=== PATIENT | female | born 1945 | race Caucasian/White ===

== ENCOUNTER 2019-06-26 13:05 | Emergency (ER) | payer MEDICARE, SELFPAY ==
--- NOTE | ~2019-06-26 | XR_ITS ---
XR lumbar spine 2-3V DATE: 06/26/2019 14:04 INDICATION: Fall. Left lower back pain. TECHNIQUE: AP, lateral, coned lateral lumbosacral views COMPARISON: None FINDINGS: There is an acute fracture of the superior aspect of L2 with slight offset of the upper ant erior cortex of the vertebral body. No other fracture or any bone destruction is evident. The lumbar and included lower thoracic pedicles are intact. There is degenerative change at the apophyseal joints of the lower lumbar and lumbosacral area with a ssociated grade 1 anterolisthesis at L4-5 There is degenerative spurring of the lower thoracic and to a lesser extent lumbar spine. The sacroiliac joints appear normal. IMPRESSION: Acute minimally displaced L2 vertebral body fracture Degenerative changes Reviewed, dictated and finalized at location A.
--- NOTE | ~2019-06-26 | XR_ITS ---
XR wrist LT min 3V DATE: 06/26/2019 14:03 INDICATION: Fall. Generalized left wrist pain TECHNIQUE: 4 views COMPARISON: None FINDINGS: There is osteoarthritis at the triscaphe and first carpometacarpal and metacarpophalangeal joints. No fracture or dislocation, periosteal reaction or bone destruction. IMPRESSION: Polyarticular osteoarthritis Reviewed, dictated and finalized at location A.
[2019-06-26 13:12] VITALS: BP 148/68; PULSE 98; RESP 18; TEMP 37.3; O2SAT 98
--- NOTE | 2019-06-26 13:37 | ED.GENADULT ---
HPI - General Adult General Chief complaint: Fall Stated complaint: Back Pain,Wrist Pain Time Seen by Provider: 06/26/19 13:30 Source: patient and RN notes reviewed Mode of arrival: ambulatory Limitations: no limitations History of Present Illness HPI narrative: 74-year-old female presents with complaints of lower back pain and left wrist pain after falling today at approximately 12:30 pm. No treatment. Star says she was stepping up on a curb going [employer] when she missed the curb and fell forward, stuck out her left hand to break her fall. Causing injury to LT wrist. Denies radiating pain, numbness, or tingling. No radiating pain. No swelling. No immobility, suspected foreign body, or abuse. Exacerbating factors consist of movement of LT wrist. Relieving factor is rest. Dominant hand is the RIGHT HAND. While attempting to get up she fell backwards hitting back of head and back. Denies loss of consciousness. Denies head swelling or bleeding. Denies blood thinners. Denies syncope, altered vision, altered speech, confusion, or seizure activity. No upper or lower extremity pain or weakness. Exacerbating factors consist of standing, movement, and bending of back. Denies nausea, vomiting, or abdominal pain. Denies chest pain or dyspnea. Denies problems with urinating or having a bowel movement. No flank pain or hematuria or dysuria. Denies fever or chills. Remains active. Some parts of this dictation were generated by voice recognition software and may contain typographical and/or grammatical inaccuracies. Related Data Home Medications Medication Instructions Recorded Confirmed hydrochlorothiazide 25 mg tablet 25 mg PO DAILY 05/18/19 losartan 25 mg tablet 25 mg PO DAILY 05/18/19 metformin 500 mg tablet,extended 2,000 mg PO QPM tablet 05/18/19 release 24 hr Allergies Allergy/AdvReac Type Severity Reaction Status Date / Time No Known Allergies Allergy Uncoded 02/04/19 17:33 Review of Systems Review of Systems: Narrative: CONSTITUTIONAL: Denies fever, chills, sweats. EYES: Denies visual changes, redness, discharge. ENT: Denies rhinorrhea, congestion, sore throat, otalgia. CARDIOVASCULAR: Denies chest pain, palpitations, edema. RESPIRATORY: Denies dyspnea, wheezing, cough. GASTROINTESTINAL: Denies abdominal pain, nausea, vomiting, diarrhea. GENITOURINARY: Denies dysuria, hematuria, abnormal discharge. SKIN: Denies rash or itching. MUSCULOSKELETAL: Complains of diffused lower back pain, LT wrist pain. Denies myalgia. NEUROLOGIC: Denies numbness or focal weakness. Complains of hitting head, headache. PSYCHIATRIC: Denies anxiety or depression. All systems reviewed & are unremarkable except as noted in HPI and below. [facility] Past Medical History Medical History (Updated 06/26/19 @ 17:55 by ONEAL Ramesh) Hyperlipidemia Hypertension Hypothyroidism Localized osteoarthritis of knees, bilateral Major depression Type 2 diabetes mellitus Surgical History Surgical History (Updated 06/26/19 @ 14:02 by ONEAL Ramesh) No significant past surgical history Family History Family History Other Diabetes mellitus Family history of polycystic kidney disease Hypertension Social History Social History (Updated 06/26/19 @ 14:03 by ONEAL Ramesh) Smoking status: Never smoker Second hand tobacco smoke exposure: No Alcohol intake: current Substance use: never Living arrangements: alone Occupation/Education: occupation Gender identity (if verbalized by the patient): Female Comments At time of signature, agree with nurse past medical, surgical, social, and family history. There is no relevant family history pertinent to the presenting complaint. Exam Narrative: Exam Narrative: GENERAL: This is a well-nourished, well-developed patient, in no apparent distress. Talks in full sentences without defi
[2019-06-26] MEDS: ACETAMINOPHEN 500 MG TABLET 1000 MG PO (13:45)
== END 2019-06-26 15:00 | disposition home or self-care (01) ==
PROVIDERS: Emergency Provider Nurse Practitioner Family; PCP Family Medicine
DX: S32.029A Unspecified fracture of second lumbar vertebra, initial encounter for closed fracture (principal); M25.532 Pain in left wrist; W19.XXXA Unspecified fall, initial encounter; E78.5 Hyperlipidemia, unspecified; I10 Essential (primary) hypertension; E03.9 Hypothyroidism, unspecified; M17.0 Bilateral primary osteoarthritis of knee; F32.9 Major depressive disorder, single episode, unspecified; E11.9 Type 2 diabetes mellitus without complications
CPT/HCPCS: 72100; 73110; 99214; A9270; G0463

== ENCOUNTER 2019-09-05 13:33 | Emergency (ER) | payer MEDICARE, SELFPAY ==
--- NOTE | ~2019-09-05 | XR_ITS ---
EXAMINATION: XR ankle LT min 3V, XR foot LT min 3V EXAM DATE: 09/05/2019 15:08 INDICATION: Initial encounter following injury, with pain of the left ankle and foot. TECHNIQUE: Left foot dorsoplantar, lateral and oblique projections obtained and reviewed. Left ankle frontal, lateral and oblique projections obtained and reviewed. There is no prior study for compari son. FINDINGS: There is acute oblique closed posttraumatic fracture of the left fifth metatarsal shaft. T here is mild comminution and about 5 mm of displacement. There is overlying soft tissue swelling. No other acute findings. The left ankle mortise appears intact. Large calcaneal spurs. There is modera te scattered foot primary osteoarthritis. IMPRESSION: 1. Acute mildly displaced and comminuted left fifth metatarsal shaft fracture. Reviewed, dictated and finalized at location A. IMPRESSION: 1. Acute mildly displaced and comminuted left fifth metatarsal shaft fracture.
--- NOTE | ~2019-09-05 | XR_ITS ---
EXAMINATION: XR femur LT min 2V EXAM DATE: 09/05/2019 15:08 INDICATION: Initial encounter following injury, with pain of the left femur. TECHNIQUE: Left femur frontal and lateral projections of the proximal aspect, frontal and lateral pro jections of the lower aspect for review. There is no prior study for comparison. FINDINGS: There are no acute left femur fractures or dislocations identified. There is no subcutaneo us gas. There is some swelling anterolateral aspect of leg, within subcutaneous fat. There are no r adiopaque foreign bodies. There is severe left knee, moderate hip primary osteoarthritis. No joint effusion. IMPRESSION: 1. Left femur exam without acute osseous findings. 2. Advanced left knee osteoarthritis. 3. Soft tissue swelling Reviewed, dictated and finalized at location A.
[2019-09-05 13:52] VITALS: BP 118/69; PULSE 101; RESP 16; TEMP 37.6; O2SAT 98
--- NOTE | 2019-09-05 14:19 | ED.FALL ---
HPI - Fall General Chief Complaint: Fall Stated Complaint: fall Time Seen by Provider: 09/05/19 14:19 Source: patient Mode of arrival: ambulatory Limitations: no limitations History of Present Illness HPI Narrative: Cristi Norwood is a 74 yo female with a PMH of HTN, anxiety, depression, high cholesterol, hypothyroid, diabetes, who comes to express care after fall down stairs last night; complains today along the left side particular lower extremity Patient had fall on June 25 resulted in a lumbar fracture and is in a hard shell back brace Related Data Home Medications Medication Instructions Recorded Confirmed hydrochlorothiazide 25 mg tablet 25 mg PO DAILY 05/18/19 metformin 500 mg tablet,extended 2,000 mg PO QPM tablet 05/18/19 release 24 hr Allergies Allergy/AdvReac Type Severity Reaction Status Date / Time No Known Allergies Allergy Unknown Unknown Uncoded 09/03/19 15:34 Review of Systems Review of Systems: Narrative: CONSTITUTIONAL: Denies fever, chills, sweats. EYES: Denies visual changes, redness, discharge. ENT: Denies rhinorrhea, congestion, sore throat, otalgia. CARDIOVASCULAR: Denies chest pain, palpitations, edema. RESPIRATORY: Denies dyspnea, wheezing, cough GASTROINTESTINAL: Denies abdominal pain, nausea, vomiting, diarrhea. GENITOURINARY: Denies dysuria, hematuria, abnormal discharge SKIN: Denies rash or itching. Ecchymosis of left foot bright crowley left lateral leg from mid lower leg up to hip NEUROLOGIC: Denies numbness, or focal weakness. PSYCHIATRIC: Denies anxiety or depression. [facility] Past Medical History Medical History Hyperlipidemia Hypertension Hypothyroidism Localized osteoarthritis of knees, bilateral Major depression Type 2 diabetes mellitus Surgical History Surgical History No significant past surgical history Family History Family History Other Diabetes mellitus Family history of polycystic kidney disease Hypertension Social History Social History Smoking status: Never smoker Second hand tobacco smoke exposure: No Alcohol intake: current Substance use: never Gender identity (if verbalized by the patient): Female Comments At time of signature, I agree with nursing past medical, surgical, social and family history. There is no relevant family history pertinent to the presenting complaint. Exam Narrative: Exam Narrative: GENERAL: This is a well-nourished, well-developed patient, in mild distress. HEAD: normocephalic, atraumatic. EYES: Sclera clear/white. Vision is grossly intact. EARS: External ears normal, Hearing grossly intact. NOSE: External nose normal without nasal discharge, nares without redness, no rhinorrhea. THROAT: Mucous membranes moist, posterior pharynx NECK: Neck supple, non-tender CARDIOVASCULAR: Regular rate and rhythm without murmurs, gallops, or rubs. RESPIRATORY: Clear to auscultation. Breath sounds equal bilaterally. No wheezes, rales, or rhonchi. GASTROINTESTINAL: Abdomen soft, non-tender, SKIN: warm, intact with no suspicious lesions or rash, good texture and turgor. Ecchymosis of left great toe left lower leg left knee left thigh on lateral side NEURO: awake, alert, and oriented to person, place and time. There were no obvious focal neurologic abnormalities. Steady gait equal key holder bilateral hands, right leg weaker than left EXTREMITIES: Normal range of motion. BACK: Nontender without deformity Course Course Emergency Course: Multiple x-rays including left ankle left foot left knee and left hip- all negative except for L fpoot Xray - 5th metatarsal comminuted fracture- blayne taping and placed in post op shoe- follow up with scale assembly set up worker Vital Signs Vital signs: Vital Signs Temperature 99.6 F 09/05/19
== END 2019-09-05 15:51 | disposition home or self-care (01) ==
PROVIDERS: Emergency Provider Nurse Practitioner; PCP Family Medicine
DX: S92.352A Displaced fracture of fifth metatarsal bone, left foot, initial encounter for closed fracture (principal); I10 Essential (primary) hypertension; E03.9 Hypothyroidism, unspecified; E11.9 Type 2 diabetes mellitus without complications; E78.5 Hyperlipidemia, unspecified; M17.0 Bilateral primary osteoarthritis of knee; Z79.84 Long term (current) use of oral hypoglycemic drugs; W10.9XXA Fall (on) (from) unspecified stairs and steps, initial encounter
CPT/HCPCS: 73552; 73610; 73630; 99214; G0463

== ENCOUNTER 2020-02-22 15:58 | Outpatient (CLI) | payer MEDICARE, SELFPAY ==
[2020-02-23 07:18] LABS: Anion Gap 16 mmol/L (8-16); Blood Urea Nitrogen 16 mg/dL (7-17); Calcium 10.4 mg/dL (8.4-10.2); Carbon Dioxide 25 mmol/L (22-30); Chloride 99 mmol/L (98-107); Estimated Glomerular Filt Rate 44; Glucose 148 mg/dL (65-105); Potassium 3.9 mmol/L (3.4-5.0); Sodium 140 mmol/L (137-145)
[2020-02-23 07:29] LABS: Hemoglobin A1C 5.5 % (<5.7)
== END 2020-02-22 15:59 | disposition home or self-care (01) ==
LOC: ANHLAB 15:59
PROVIDERS: PCP Family Medicine; Visit Provider Family Medicine
DX: E11.65 Type 2 diabetes mellitus with hyperglycemia (principal); E87.1 Hypo-osmolality and hyponatremia; I10 Essential (primary) hypertension
CPT/HCPCS: 36415; 80048; 83036

== ENCOUNTER 2020-02-23 16:34 | Outpatient (CLI) | payer MEDICARE, SELFPAY ==
[2020-02-23 17:19] LABS: Add Urine Microscopic? YES; Appearance Urine Clear (Clear); Bilirubin Urine Negative (Negative); Blood Urine Negative (Negative); Color Urine Yellow (Yellow); Glucose Urine UA Negative (Negative); Ketones Urine Negative (Negative); Leukocyte Esterase Ur 1+ LEU/UL (NEGATIVE); Mucus Urine Rare /lpf; Nitrate Urine Negative (Negative); Protein Urine Negative (Negative); RBC Urine 0-2 /hpf (0-2); Specific Grav Ur 1.027 (1.001-1.035); Squamous Epithelial Cell Urine Few /hpf (Few); Urobilinogen Urine Negative mg/dL (<2.0)
== END 2020-02-23 16:35 | disposition home or self-care (01) ==
LOC: ANHLAB 16:35
PROVIDERS: PCP Family Medicine; Visit Provider Family Medicine
DX: R35.0 Frequency of micturition (principal)
CPT/HCPCS: 81001; 87077; 87086; 87088

== ENCOUNTER 2020-03-07 11:38 | Outpatient (CLI) | payer MEDICARE, SELFPAY ==
--- NOTE | ~2020-03-07 | CT_ITS ---
EXAMINATION: CT abdomen pelvis wo con EXAM DATE: 03/07/2020 11:58 INDICATION: Left flank pain. TECHNIQUE: Spiral CT of the abdomen and pelvis was performed without contrast. Axial, coronal and sag ittal images were reviewed. The dose-length product (DLP) for this examination was 1008.70 mGy-cm. The exposure was tailored according to patient size (auto mA exposure control), and iterative reconst ruction (ASIR) was used as additional dose reduction technique. There is no prior study for comparis on. FINDINGS: There is no nephrolithiasis or hydronephrosis. The uterus is unremarkable. The bladder is unremarkable. The liver, spleen, adrenal glands and pancreas are unremarkable. Gallbladder is un remarkable. No biliary obstruction. There is no retroperitoneal or pelvic lymphadenopathy. There is mild scattered arteriosclerotic disease. The appendix is normal. There is small sliding gastroesophageal hiatal hernia. There is moderate col onic diverticulosis. There is no adjacent inflammatory change to suggest diverticulitis. No free in traperitoneal gas. The heart is normal in size. There are no pericardial or pleural effusions. Th e lung bases are unremarkable. Mild to moderate anterior wedging of the L2 vertebral body with scler osis, indicating this is subacute or chronic. IMPRESSION: 1. No nephrolithiasis, hydronephrosis or acute intra-abdominal findings. 2. Colonic diverticulosis. 3. Small hiatal hernia. Reviewed, dictated and finalized at location B. NURSE
== END 2020-03-07 11:39 | disposition home or self-care (01) ==
PROVIDERS: PCP Family Medicine; Visit Provider Physician Assistant
DX: R10.9 Unspecified abdominal pain (principal); K44.9 Diaphragmatic hernia without obstruction or gangrene; K57.30 Diverticulosis of large intestine without perforation or abscess without bleeding
CPT/HCPCS: 74176

== ENCOUNTER 2020-03-11 14:58 | Outpatient (CLI) | payer MEDICARE, SELFPAY ==
[2020-03-11 15:55] LABS: Anion Gap 9 mmol/L (8-16); Blood Urea Nitrogen 16 mg/dL (7-17); Calcium 9.3 mg/dL (8.4-10.2); Carbon Dioxide 28 mmol/L (22-30); Chloride 104 mmol/L (98-107); Estimated Glomerular Filt Rate > 60; Glucose 116 mg/dL (65-105); Potassium 4.2 mmol/L (3.4-5.0); Sodium 141 mmol/L (137-145)
[2020-03-11 16:17] LABS: Creatinine Urine 138.3 mg/dL
[2020-03-11 16:19] LABS: MALB Creatinine Ratio 5.6 mg/g (0-30); Microalbumin Urine Random 7.8 mg/L (0-16.7)
[2020-03-11 17:22] LABS: T4 Thyroxine 9.54 ug/dL (5.53-11.0)
== END 2020-03-11 14:59 | disposition home or self-care (01) ==
LOC: ANHLAB 14:59
PROVIDERS: PCP Family Medicine; Visit Provider Physician Assistant
DX: E03.9 Hypothyroidism, unspecified (principal); E11.65 Type 2 diabetes mellitus with hyperglycemia; I10 Essential (primary) hypertension
CPT/HCPCS: 36415; 80048; 82043; 84436; 84443

== ENCOUNTER 2020-12-06 09:15 | Outpatient (RCR) | payer MEDICARE, SELFPAY ==
[2020-11-22 09:46] VITALS: BMI 45.2
[2020-11-22 09:48] VITALS: BMI 45.2
== END 2021-02-08 11:55 | disposition home or self-care (01) ==
LOC: ANHDMC 09:15
PROVIDERS: PCP Physician Assistant; Visit Provider Physician Assistant
DX: E11.65 Type 2 diabetes mellitus with hyperglycemia (principal); Z71.3 Dietary counseling and surveillance; Z71.89 Other specified counseling
CPT/HCPCS: 97802; G0108

== ENCOUNTER 2021-04-04 10:31 | Outpatient (RCR) | payer MEDICARE, SELFPAY | END 2021-04-04 12:23 | disposition home or self-care (01) | LOC: ANHDMC 10:31 | PROVIDERS: PCP Family Medicine; Visit Provider Physician Assistant | DX: E11.65 Type 2 diabetes mellitus with hyperglycemia (principal); Z71.89 Other specified counseling | CPT/HCPCS: G0108 ==

== ENCOUNTER 2021-06-19 14:11 | Outpatient (CLI) | payer MEDICARE, SELFPAY ==
[2021-06-19 15:03] LABS: Alanine Aminotransferase 19 U/L (4-35); Albumin Level 4.7 g/dL (3.5-5.1); Alkaline Phosphatase 72 U/L (38-126); Anion Gap 9 mmol/L (8-16); Aspartate Amino Transferase 23 U/L (14-36); Bilirubin,Total 0.8 mg/dL (0.2-1.3); Blood Urea Nitrogen 19 mg/dL (7-17); Calcium 9.4 mg/dL (8.4-10.2); Carbon Dioxide 26 mmol/L (22-30); Chloride 100 mmol/L (98-107); Estimated Glomerular Filt Rate > 60; Glucose 149 mg/dL (65-110); Potassium 4.3 mmol/L (3.4-5.0); Sodium 135 mmol/L (137-145)
[2021-06-19 15:10] LABS: Hemoglobin A1C 6.1 % (<5.7)
== END 2021-06-19 14:12 | disposition home or self-care (01) ==
LOC: ANHLAB 14:13
PROVIDERS: PCP Family Medicine; Visit Provider Family Medicine
DX: E11.65 Type 2 diabetes mellitus with hyperglycemia (principal)
CPT/HCPCS: 36415; 80053; 83036

== ENCOUNTER 2021-06-27 20:17 | Emergency (ER) | payer MEDICARE, SELFPAY ==
--- NOTE | ~2021-06-27 | CT_ITS ---
EXAMINATION: CT cervical spine wo con DATE: 06/27/2021 23:00 INDICATION: Fall. Head injury. TECHNIQUE: Computed tomography (CT) of the cervical spine was performed without intravenous contrast. Automated exposure control and iterative reconstruction technique were employed. Exam dose: 405.32 mGy-cm total exam DLP. COMPARISON: None FINDINGS: C1 and C2 are normally aligned and the odontoid process is intact. No fracture or dislocation or locked facet or prevertebral soft tissue swelling. There is anterior spurring throughout the cervical spine. Cervical interspaces are relatively preserv ed. There is degenerative change of prominent degree at the apophyseal joints.. IMPRESSION: Degenerative changes; no fracture or dislocation Reviewed, dictated and finalized at Location A. Reviewed, dictated and finalized at location A.
--- NOTE | ~2021-06-27 | CT_ITS ---
EXAMINATION: CT brain wo con DATE: 06/27/2021 23:00 INDICATION: Fall, head injury, forehead laceration TECHNIQUE: Computed tomography (CT) of the head was performed without intravenous contrast. The mA wa s adjusted according to patient size. Iterative reconstruction technique was employed. Exam dose: 60 5.33 mGy-cm total exam DLP. COMPARISON: None FINDINGS: Bilateral carotid siphon internal carotid artery calcifications in addition to some vertebr al basilar artery calcification. No intracranial mass lesion or hemorrhage or cerebrovascular accident. No midline shift or mass effec t. No subdural or epidural hematoma. No orbital mass lesion. There are mastoid air cells are normally developed and aerated. Included paranasal sinuses are unrema rkable. Bilateral hyperostosis frontalis interna, not likely of clinical significance. No skull fracture or b one destruction. IMPRESSION: No skull fracture or acute intracranial abnormality Reviewed, dictated and finalized at Location A. Reviewed, dictated and finalized at location A.
[2021-06-27 20:22] VITALS: BP 118/59; PULSE 103; RESP 18; TEMP 36.9; O2SAT 100
[2021-06-27 21:17] VITALS: BP 158/68; PULSE 87; RESP 18; O2SAT 98
--- NOTE | 2021-06-27 21:23 | PC.NURSE ---
denies any loc
[2021-06-27 22:09] VITALS: BP 150/69; PULSE 90; RESP 18; O2SAT 99
--- NOTE | 2021-06-27 22:59 | ED.FALL ---
HPI - Fall General Chief Complaint: Fall <Diana Regalado PA-C - Last Filed: 06/28/21 04:24> Stated Complaint: fall - dizzy <PILAR Velez Last Filed: 06/28/21 04:24> Time Seen by Provider: 06/27/21 21:56 <PILAR Velez Last Filed: 06/28/21 04:24> Source: patient <PILAR Velez Last Filed: 06/28/21 04:24> Mode of arrival: ambulatory <PILAR Velez Last Filed: 06/28/21 04:24> Limitations: no limitations <PILAR Velez Last Filed: 06/28/21 04:24> History of Present Illness HPI Narrative: Patient is a 76-year-old female, with Hx of DM, who presents to the ED status post fall with head injury. 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 She did not lose consciousness. The fall was witnessed by the delivery associate. Patient states she remembers the entire incident. She denied any chest pain, shortness of breath, back pain, headache, focal weakness, vision changes prior to the fall. She reports she has felt lightheaded like this before when she has not eaten. She denies any previous syncopal episodes. She did sustain a small laceration to her middle forehead between her eyes and several abrasions to her face from the fall. She is not on any blood thinners. No epistaxis, dizziness, lightheadedness, headache, nausea, vomiting, or other pain currently in ED bed. <PILAR Velez Last Filed: 06/28/21 04:24> Related Data Home Medications: Home Medications Medication Instructions Recorded Confirmed diphenhydramine 25 250 ml PO DAILY 03/01/20 06/20/21 mg-acetaminophen 500 mg/15 mL oral solution multivitamin 1 tablet PO DAILY 03/01/20 06/20/21 vitamin B complex 1 tablet PO DAILY 03/01/20 06/20/21 magnesium 30 mg tablet 30 mg PO DAILY 08/30/20 06/20/21 blood-glucose meter 12/06/20 06/20/21 metformin 500 mg tablet,extended 500 mg PO TID tablet 03/17/21 06/20/21 release 24 hr <Diana Regalado PA-C - Last Filed: 06/28/21 04:24> Allergies/Adverse Reactions: Allergies Allergy/AdvReac Type Severity Reaction Status Date / Time lisinopril AdvReac Intermediate Cough Verified 06/27/21 20:26 <Diana Regalado PA-C - Last Filed: 06/28/21 04:24> Review of Systems Review of Systems: CONSTITUTIONAL: Denies fever, chills, or sweats. EYES: Denies visual changes. ENT: Denies epistaxis. CARDIOVASCULAR: Denies chest pain, palpitations, or edema. RESPIRATORY: Denies cough or dyspnea. GASTROINTESTINAL: Denies abdominal pain, nausea, vomiting, or diarrhea. GENITOURINARY: Denies dysuria or hematuria. SKIN: Reports laceration to middle forehead and small abrasions to forehead, nose, and upper lip. MUSCULOSKELETAL: Denies back pain, joint pain, or myalgia. NEUROLOGIC: Reports HI and lightheadedness, resolved. Denies LOC, headache, numbness, or focal weakness. <Diana Regalado PA-C - Last Filed: 06/28/21 04:24> All systems reviewed & are unremarkable except as noted in HPI and below <Diana Regalado PA-C - Last Filed: 06/28/21 04:24> [facility] Past Medical History Medical History: Medical History Breast cancer screening Colon cancer screening Depression Dyspnea Encounter for immunization Hyperlipidemia Hypertension Hypothyroidism, unspecified Localized osteoarthritis of knees, bilateral Lumbar spondylosis Major depression Morbid obesity with BMI of 40.0-44.9, adult Psoriasis Spinal stenosis, lumbar Spondylolisthesis, lumbar region Type 2 diabetes mellitus <Diana Regalado PA-C - Last Filed: 06/28/21 04:24> Surgical History Surgical History: Surgical History No significant past surgical history <Diana Regalado PA-C - Last Filed: 06/28/21 04:24> Family H
[2021-06-27 23:03] VITALS: BP 150/76; PULSE 87; RESP 18; O2SAT 99
[2021-06-27 23:12] LABS: Glucose Point of Care 153 mg/dl (65-105)
[2021-06-28] MEDS: TETANUS,DIPHTHERIA,AC PERTUSSIS ADULT (0.5 ML) BOOSTRIX IM (00:49)
[2021-06-28 00:54] VITALS: BP 152/76; PULSE 93; RESP 18; O2SAT 98
--- NOTE | 2021-06-28 00:59 | PC.NURSE ---
0045 neosporin dressing forehead
== END 2021-06-28 01:01 | disposition home or self-care (01) ==
PROVIDERS: Emergency Provider Emergency Medicine; PCP Family Medicine
DX: S01.81XA Laceration without foreign body of other part of head, initial encounter (principal); Z23 Encounter for immunization; E78.5 Hyperlipidemia, unspecified; I10 Essential (primary) hypertension; E03.9 Hypothyroidism, unspecified; E11.9 Type 2 diabetes mellitus without complications; M17.0 Bilateral primary osteoarthritis of knee; E66.01 Morbid (severe) obesity due to excess calories; Z68.41 Body mass index [BMI] 40.0-44.9, adult; F32.9 Major depressive disorder, single episode, unspecified; Z79.84 Long term (current) use of oral hypoglycemic drugs; Z79.899 Other long term (current) drug therapy; W18.39XA Other fall on same level, initial encounter
CPT/HCPCS: 12011; 70450; 72125; 82948; 90471; 90715; 99284

== ENCOUNTER 2021-11-01 13:56 | Outpatient (CLI) | payer MEDICARE, SELFPAY ==
--- NOTE | 2021-11-01 14:12 | ECG_ITS ---
Measurements Intervals [place] Rate: 94 P: 73 [place]: 167 QRS: 52 QRSD: 105 T: 74 QT: 356 QTc: 447 Interpretive Statements SINUS RHYTHM NORMAL ECG Electronically Signed On 11-01-2021 22:38:41 CDT by Emil Pulido D.O.
[2021-11-01 15:55] LABS: Hemoglobin A1C 6.3 % (<5.7)
== END 2021-11-01 13:57 | disposition home or self-care (01) ==
PROVIDERS: PCP Family Medicine; Visit Provider Physician Assistant Medical
DX: R73.03 Prediabetes (principal); R42 Dizziness and giddiness
CPT/HCPCS: 36415; 83036; 93005

== ENCOUNTER 2022-01-18 14:04 | Outpatient (CLI) | payer MEDICARE, SELFPAY ==
[2022-01-18 15:21] LABS: Hemoglobin A1C 6.6 % (<5.7)
[2022-01-18 15:40] LABS: Albumin Level 4.5 g/dL (3.5-5.1); Alkaline Phosphatase 73 U/L (38-126); Anion Gap 15 mmol/L (8-16); Aspartate Amino Transferase 26 U/L (14-36); Bilirubin,Total 0.6 mg/dL (0.2-1.3); Blood Urea Nitrogen 18 mg/dL (7-17); Calcium 9.7 mg/dL (8.4-10.2); Carbon Dioxide 22 mmol/L (22-30); Chloride 99 mmol/L (98-107); Estimated Glomerular Filt Rate > 60; Glucose 124 mg/dL (65-110); Potassium 4.1 mmol/L (3.4-5.0); Sodium 136 mmol/L (137-145)
[2022-01-18 15:51] LABS: Alanine Aminotransferase 28 U/L (6-35)
== END 2022-01-18 14:05 | disposition home or self-care (01) ==
LOC: ANHLAB 14:06
PROVIDERS: PCP Family Medicine; Visit Provider Physician Assistant
DX: E11.9 Type 2 diabetes mellitus without complications (principal)
CPT/HCPCS: 36415; 80053; 83036

== ENCOUNTER 2022-03-30 15:41 | Emergency (ER) | payer MEDICARE, SELFPAY ==
[2022-03-30 15:56] VITALS: BP 117/77; PULSE 100; RESP 18; TEMP 36.4; O2SAT 100
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
== END 2022-03-30 16:30 | disposition home or self-care (01) ==
PROVIDERS: Emergency Provider Nurse Practitioner; PCP Family Medicine
DX: T23.252A Burn of second degree of left palm, initial encounter (principal); X19.XXXA Contact with other heat and hot substances, initial encounter; E78.5 Hyperlipidemia, unspecified; I10 Essential (primary) hypertension; E03.9 Hypothyroidism, unspecified; M17.0 Bilateral primary osteoarthritis of knee; E66.01 Morbid (severe) obesity due to excess calories; Z68.41 Body mass index [BMI] 40.0-44.9, adult; E11.9 Type 2 diabetes mellitus without complications; M47.816 Spondylosis without myelopathy or radiculopathy, lumbar region; M48.061 Spinal stenosis, lumbar region without neurogenic claudication; F32.9 Major depressive disorder, single episode, unspecified
CPT/HCPCS: 99213; A9270; G0463

== ENCOUNTER 2022-06-30 13:31 | Outpatient (CLI) | payer MEDICARE, SELFPAY ==
[2022-06-30 14:12] LABS: Alanine Aminotransferase 26 U/L (6-35); Albumin Level 4.5 g/dL (3.5-5.1); Alkaline Phosphatase 74 U/L (38-126); Anion Gap 10 mmol/L (8-16); Aspartate Amino Transferase 23 U/L (14-36); Bilirubin,Total 0.8 mg/dL (0.2-1.3); Blood Urea Nitrogen 18 mg/dL (7-17); Calcium 9.1 mg/dL (8.4-10.2); Carbon Dioxide 25 mmol/L (22-30); Chloride 100 mmol/L (98-107); Cholesterol 219 mg/dL (0-200); Estimated Glomerular Filt Rate > 60; Glucose 140 mg/dL (65-110); HDL Direct 77 mg/dL; Potassium 4.3 mmol/L (3.4-5.0); Sodium 135 mmol/L (137-145); Triglycerides 208 mg/dL (<150)
[2022-06-30 14:23] LABS: LDL Cholesterol Direct 108 mg/dL
[2022-06-30 14:25] LABS: Basophils Absolute Auto 0.1 K/mm3 (0.0-0.1); Basophils Percent Auto 0.8 % (0.2-1.2); Eosinophils Absolute Auto 0.2 K/mm3 (0-0.3); Eosinophils Percent Auto 2.9 % (0-4.4); Hematocrit 40.8 % (37.0-47.0); Hemoglobin 13.2 g/dL (12.0-15.0); Immature Granulocyte Absolute 0.03 K/mm3 (0.00-0.031); Immature Granulocyte Percent A 0.5 % (0-0.5); Lymphocytes Absolute Auto 1.57 K/mm3 (0.9-3.2); Lymphocytes Percent Auto 25.7 % (18.3-44.2); Mean Corpuscular HGB Conc 32.4 g/dl (32-36); Mean Corpuscular Hemoglobin 26.9 pg (26-34); Mean Corpuscular Volume 83.1 fl (80-100); Mean Platelet Volume 10.6 fl (7.4-10.4); Monocytes Absolute Auto 0.4 K/mm3 (0.1-0.6); Monocytes Percent Auto 6.9 % (2.6-8.5); Neutrophils Absolute Auto 3.9 K/mm3 (1.3-6.7); Neutrophils Percent Auto 63.2 % (45.5-73.1); Platelet Count Result 305 k/mm3 (150-375); Red Blood Count 4.91 M/mm3 (4.2-5.4); Red Cell Distribution Width 13.6 % (11.5-14.5); White Blood Count 6.1 K/mm3 (4.5-10.0)
[2022-06-30 14:27] LABS: Vitamin D 25 Hydroxy 27.4 ng/mL
[2022-06-30 14:45] LABS: Hemoglobin A1C 6.8 % (<5.7)
== END 2022-06-30 13:32 | disposition home or self-care (01) ==
LOC: ANHLAB 13:32
PROVIDERS: PCP Family Medicine; Visit Provider Family Medicine
DX: R53.83 Other fatigue (principal); E78.2 Mixed hyperlipidemia; E11.9 Type 2 diabetes mellitus without complications; E03.9 Hypothyroidism, unspecified; E55.9 Vitamin D deficiency, unspecified
CPT/HCPCS: 36415; 80053; 80061; 82306; 83036; 84443; 85025

== ENCOUNTER 2022-07-09 09:46 | Emergency (ER) | payer MEDICARE, SELFPAY ==
[2022-07-09 10:07] VITALS: BP 180/94; PULSE 81; RESP 20; TEMP 36.1; O2SAT 99
--- NOTE | 2022-07-09 10:33 | ED.URI ---
HPI - URI/Sore Throat General Chief Complaint: Upper Respiratory Infection Stated Complaint: sorethroat,cough,chest congestion Time Seen by Provider: 07/09/22 10:33 Source: patient Mode of arrival: ambulatory Limitations: no limitations History of Present Illness HPI Narrative: 77-year-old female presents with complaint of cough, nasal congestion, ear pressure for the last 4 days. Reports that she is starting to feel better but is continuing to have chest pain with coughing. Denies shortness of breath. Taking [id number] Coricidin to treat symptoms. Is not taking a cough suppressant due to high blood pressure. Afebrile. Call PCP office this morning for appointment but did not have any. Denies nausea vomiting diarrhea. All systems reviewed and negative except as noted above. Related Data Home Medications Medication Instructions Recorded Confirmed magnesium 30 mg tablet 30 mg PO DAILY 08/30/20 07/09/22 blood-glucose meter (OneTouch 12/06/20 07/09/22 Verio Flex Meter) Allergies Allergy/AdvReac Type Severity Reaction Status Date / Time lisinopril AdvReac Intermediate Cough Verified 07/09/22 10:08 Review of Systems Review of Systems: CONSTITUTIONAL: Denies fever, chills, or sweats. EYES: Denies visual changes, redness, or discharge. ENT: Reports rhinorrhea, congestion, sore throat, bilateral ear pain. CARDIOVASCULAR: Denies chest pain, palpitations, or edema. RESPIRATORY: Reports cough. Denies dyspnea. GASTROINTESTINAL: Denies abdominal pain, nausea, vomiting, or diarrhea. GENITOURINARY: Denies dysuria or hematuria. SKIN: Denies rash or itching. MUSCULOSKELETAL: Denies back pain, joint pain, or myalgia. NEUROLOGIC: Denies headache, numbness, or weakness. PSYCHIATRIC: Denies anxiety or depression. All other systems reviewed are negative, except as documented in HPI. [facility] Past Medical History Medical History Breast cancer screening Colon cancer screening Depression Dyspnea Encounter for immunization Hyperlipidemia Hypertension Hypothyroidism, unspecified Localized osteoarthritis of knees, bilateral Lumbar spondylosis Major depression Morbid obesity with BMI of 40.0-44.9, adult Psoriasis Spinal stenosis, lumbar Spondylolisthesis, lumbar region Type 2 diabetes mellitus Surgical History Surgical History No significant past surgical history Family History Family History Other Diabetes mellitus Family history of polycystic kidney disease Hypertension Social History Social History Smoking status: Never smoker Second hand tobacco smoke exposure: No Alcohol intake: current Alcohol use details: Occasional Substance use: never Substance use type: does not use Lack of Transportation: No Lack of Food: Never True Current Housing: I Have Housing Concerned About Future Housing: No Difficulty Paying Gas/Electric Bills: No Difficulty Paying for Meds: No Currently Unemployed: No Education: High School Diploma/GED Difficulty w/ Childcare or Family Care: No Living arrangements: alone Occupation/Education: occupation Gender identity (if verbalized by the patient): Female Sexual Orientation (if Verbalized by the Patient): Straight or Heterosexual Spiritual care concerns: No Agree to blood products: Yes Comments At time of signature, agree with nursing past medical, surgical, social and family history. There is no relevant family history pertinent to the presenting complaint. Exam Narrative: GENERAL: This is a well-nourished, well-developed patient, in no apparent distress. HEAD: normocephalic, atraumatic. EYES: PERRL. Sclera clear/white. Vision is grossly intact. EARS: External ears normal, auditory canals clear and without drai
== END 2022-07-09 10:43 | disposition home or self-care (01) ==
PROVIDERS: Emergency Provider Nurse Practitioner Family; PCP Family Medicine
DX: J06.9 Acute upper respiratory infection, unspecified (principal); E78.5 Hyperlipidemia, unspecified; I10 Essential (primary) hypertension; E03.9 Hypothyroidism, unspecified; E11.9 Type 2 diabetes mellitus without complications
CPT/HCPCS: 99213; G0463

== ENCOUNTER 2022-08-31 13:17 | Outpatient (CLI) | payer MEDICARE, SELFPAY ==
--- NOTE | ~2022-08-31 | US_ITS ---
EXAMINATION:US venous doppler LE RT INDICATION:Leg pain TECHNIQUE: Multiple grayscale, color flow and Doppler images of the right lower extremity deep venous systems were obtained and reviewed. COMPARISON:No prior studies for comparison. FINDINGS: The common femoral, superficial femoral and popliteal veins demonstrate normal respiratory variation, augmentation and compressibility. Color flow is also seen within the posterior tibial, pe roneal, greater saphenous and profunda veins. IMPRESSION: 1: No lower extremity deep venous thrombosis. Reviewed, dictated and finalized at location B.
--- NOTE | ~2022-08-31 | XR_ITS ---
XR knee RT 3V 08/31/2022 13:59 Indication: Right knee pain. Procedure: 3 views right knee Comparison: 10/22/2018 Findings: There is severe tricompartment osteoarthritis of the right knee with varus angulation. Ther e is a moderate joint effusion. No acute fracture or traumatic malalignment. Impression: 1: Severe osteoarthritis of the right knee with varus angulation. Reviewed, dictated and finalized at location B. Impression: 1: Severe osteoarthritis of the right knee with varus angulation.
== END 2022-08-31 13:18 | disposition home or self-care (01) ==
PROVIDERS: PCP Family Medicine; Visit Provider Family Medicine
DX: M79.604 Pain in right leg (principal); M79.89 Other specified soft tissue disorders; M17.11 Unilateral primary osteoarthritis, right knee
CPT/HCPCS: 73562; 93971

== ENCOUNTER 2023-01-15 11:27 | Emergency (ER) | payer MEDICARE, SELFPAY ==
[2023-01-15] VITALS (26 sets, daily range): BP systolic 74–180; BP diastolic 55–85; PULSE 77–108; RESP 14–23; TEMP 37.2; O2SAT 98–100
--- NOTE | ~2023-01-15 | XR_ITS ---
XR chest 1V portable DATE: 01/15/2023 13:39 INDICATION: Syncope, dizziness, lightheadedness when standing. TECHNIQUE: Portable upright AP chest on 01/15/2023 at 1332 hours COMPARISON: 03/21/2016 PA chest FINDINGS: Normal heart size. No hilar or mediastinal enlargement. No pulmonary infiltrate or consolidation, pleural effusion or pulmonary vascular congestion or pneumo thorax. Chronic mild elevation right diaphragm. Dextro scoliosis and diffuse idiopathic skeletal hyperostosis of the thoracic spine. Osteopenia. IMPRESSION: No active cardiopulmonary disease or significant change since 03/21/2016 Reviewed, dictated and finalized at location L. IMPRESSION: No active cardiopulmonary disease or significant change since 2015
--- NOTE | 2023-01-15 11:48 | ECG_ITS ---
Measurements Intervals [place] Rate: 91 P: 54 TN: 169 QRS: 24 QRSD: 102 T: 53 QT: 351 QTc: 434 Interpretive Statements SINUS RHYTHM WITH OCCASIONAL SUPRAVENTRICULAR PREMATURE COMPLEXES COMPARED TO ECG 11/01/2021 14:29:20 NO SIGNIFICANT CHANGES Electronically Signed On 01-15-2023 12:45:06 CDT by Leida Hale M.D.
[2023-01-15 12:01] LABS: Basophils Absolute Auto 0.1 K/mm3 (0.0-0.1); Basophils Percent Auto 0.5 % (0.2-1.2); Eosinophils Absolute Auto 0.3 K/mm3 (0-0.3); Eosinophils Percent Auto 3.5 % (0-4.4); Hematocrit 41.4 % (37.0-47.0); Hemoglobin 12.9 g/dL (12.0-15.0); Immature Granulocyte Absolute 0.04 K/mm3 (0.00-0.031); Immature Granulocyte Percent A 0.4 % (0-0.5); Lymphocytes Percent Auto 28.4 % (18.3-44.2); Mean Corpuscular HGB Conc 31.2 g/dl (32-36); Mean Corpuscular Hemoglobin 26.4 pg (26-34); Mean Corpuscular Volume 84.7 fl (80-100); Mean Platelet Volume 10.5 fl (7.4-10.4); Monocytes Absolute Auto 0.7 K/mm3 (0.1-0.6); Monocytes Percent Auto 7.2 % (2.6-8.5); Neutrophils Absolute Auto 5.5 K/mm3 (1.3-6.7); Platelet Count Result 325 k/mm3 (150-375); Red Blood Count 4.89 M/mm3 (4.2-5.4); Red Cell Distribution Width 13.8 % (11.5-14.5); White Blood Count 9.2 K/mm3 (4.5-10.0)
[2023-01-15 12:11] LABS: Alanine Aminotransferase 22 U/L (6-35); Albumin Level 4.7 g/dL (3.5-5.1); Alkaline Phosphatase 62 U/L (38-126); Anion Gap 13 mmol/L (8-16); Aspartate Amino Transferase 23 U/L (14-36); Bilirubin,Total 0.7 mg/dL (0.2-1.3); Blood Urea Nitrogen 21 mg/dL (7-17); Calcium 9.8 mg/dL (8.4-10.2); Carbon Dioxide 23 mmol/L (22-30); Chloride 98 mmol/L (98-107); Estimated CRCL calculation 59 ml/min; Estimated Glomerular Filt Rate > 60; Glucose 232 mg/dL (65-110); Potassium 4.5 mmol/L (3.4-5.0); Sodium 134 mmol/L (137-145)
--- NOTE | 2023-01-15 13:25 | ED.DIZZY ---
HPI - Dizziness General Chief Complaint: Dizziness Stated Complaint: orthostatic hypotension Time Seen by Provider: 01/15/23 12:12 History of Present Illness HPI Narrative: Patient is a 77-year-old female with a history of diabetes, hypertension, hyperlipidemia, depression presenting with lightheadedness. Patient states that she was going to a urologist appointment for ongoing urinary problems. States that she struggles with urinary frequency and sometimes incontinence. She has also had recurrent episodes of lightheadedness especially with positional changes and standing up. States this occurred while waiting for her appointment. She stood up from a chair and felt very lightheaded and like she was about to pass out. A nurse noticed that she looked unsteady and helped her to a chair. She was advised to come to the ER for further evaluation. She denies any chest pain, shortness of breath, palpitations, leg swelling. States that the symptoms have worsened since starting oxybutynin for her urinary complaints. States that she drinks plenty of water and she often feels thirsty. No fevers or chills, cough, abdominal pain, vomiting, diarrhea. Related Data Home Medications Medication Instructions Recorded Confirmed blood-glucose meter (OneTouch 12/06/20 12/14/22 Verio Flex Meter) Allergies Allergy/AdvReac Type Severity Reaction Status Date / Time lisinopril AdvReac Intermediate Cough Verified 01/15/23 11:45 Review of Systems Review of Systems: All systems reviewed & are unremarkable except as noted in HPI and below PMFSH Past Medical History Medical History Breast cancer screening Colon cancer screening Depression Diabetes Dyspnea Encounter for immunization History of foot fracture (~08/2019) History of spinal fracture (~06/2019) Hyperlipidemia Hypertension Hypothyroidism, unspecified Localized osteoarthritis of knees, bilateral Lumbar spondylosis Major depression Morbid obesity with BMI of 40.0-44.9, adult Psoriasis Spinal stenosis, lumbar Spondylolisthesis, lumbar region Type 2 diabetes mellitus Surgical History Surgical History No significant past surgical history Family History Family History Other Diabetes mellitus Family history of polycystic kidney disease Hypertension Social History Social History Smoking status: Never smoker Second hand tobacco smoke exposure: No Alcohol intake: current Alcohol use details: Occasional Substance use: never Substance use type: does not use Lack of Transportation: No Lack of Food: Never True Current Housing: I Have Housing Concerned About Future Housing: No Difficulty Paying Gas/Electric Bills: No Difficulty Paying for Meds: No Currently Unemployed: No Education: High School Diploma/GED Difficulty w/ Childcare or Family Care: No Living arrangements: alone Occupation/Education: occupation Gender identity (if verbalized by the patient): Female Sexual Orientation (if Verbalized by the Patient): Straight or Heterosexual Spiritual care concerns: No Agree to blood products: Yes Exam Narrative: GENERAL: Well-appearing, no acute distress, pleasant and cooperative HEAD: Normocephalic, atraumatic. EYES: PERRLA and EOMI. ENT: Mucous membranes tacky NECK: Supple. CHEST: Clear to auscultation. No respiratory distress. HEART: Regular rate and rhythm. No murmur heard. Normal peripheral pulses. ABDOMEN: Soft, nontender, nondistended EXTREMITIES: Normal range of motion. No edema. SKIN: Warm, dry, no rash. NEURO: No focal deficits. Alert and oriented x3. PSYCH: Normal mood and affect. Course Vital Signs Vital signs: Vital Signs Temperature 99.0 F 01/15/23 11:34 Pulse Rat
[2023-01-15] MEDS: SODIUM CHLORIDE 0.9% IV 1,000 ML 999 ML IV CONT ×2 (13:34)
[2023-01-15 13:55] LABS: Appearance Urine Cloudy (Clear); Bacteria Urine None Seen /hpf; Bilirubin Urine Negative (Negative); Blood Urine 2+ (Negative); Color Urine Yellow (Yellow); Glucose Urine UA Negative (Negative); Ketones Urine Negative (Negative); Leukocyte Esterase Ur 3+ LEU/UL (Negative); Nitrate Urine Negative (Negative); Non Pathogenic Casts 0-2; Protein Urine 1+ mg/dL (Negative); Specific Grav Ur 1.012 (1.001-1.035); Squamous Epithelial Cell Urine None seen /hpf (Few); Urobilinogen Urine 0.2 mg/dL (<2.0); WBC Urine >100 /hpf; pH Urine 6.5 (5.0-9.0)
[2023-01-15 13:57] LABS: Magnesium 2.1 mg/dL (1.6-2.3)
[2023-01-15 14:03] LABS: INR 0.9; Prothrombin Time 12.3 Seconds (11.1-14.7)
[2023-01-15 14:10] LABS: NT Pro B Type Natriuretic Pept 20 pg/mL (19.9-100); Troponin I < 0.012 ng/mL (0.000-0.034)
[2023-01-15 14:14] LABS: Add Urine Microscopic? YES
[2023-01-15] MEDS: cefTRIAXone 2 GM/NS 100 ML 2 GM/100 ML BAG IVPB (14:20)
[2023-01-15 15:23] LABS: Troponin I < 0.012 ng/mL (0.000-0.034)
== END 2023-01-15 16:30 | disposition home or self-care (01) ==
PROVIDERS: Emergency Medicine; Emergency Provider Emergency Medicine; PCP Family Medicine
DX: I95.1 Orthostatic hypotension (principal); N39.0 Urinary tract infection, site not specified; E11.9 Type 2 diabetes mellitus without complications; I10 Essential (primary) hypertension; E78.5 Hyperlipidemia, unspecified; E03.9 Hypothyroidism, unspecified; M17.0 Bilateral primary osteoarthritis of knee; E66.01 Morbid (severe) obesity due to excess calories; Z68.41 Body mass index [BMI] 40.0-44.9, adult; Z79.84 Long term (current) use of oral hypoglycemic drugs
CPT/HCPCS: 36415; 71045; 80053; 81001; 83735; 83880; 84484; 85025; 85610; 85730; 87086; 87088; 93005; 96361; 96365; 99284; J0696; J7030

== ENCOUNTER 2023-02-19 08:36 | Outpatient (CLI) | payer MEDICARE, SELFPAY ==
[2023-02-19 09:31] LABS: Alanine Aminotransferase 25 U/L (6-35); Albumin Level 4.6 g/dL (3.5-5.1); Alkaline Phosphatase 72 U/L (38-126); Anion Gap 14 mmol/L (8-16); Aspartate Amino Transferase 24 U/L (14-36); Bilirubin,Total 0.8 mg/dL (0.2-1.3); Blood Urea Nitrogen 19 mg/dL (7-17); Calcium 9.5 mg/dL (8.4-10.2); Carbon Dioxide 19 mmol/L (22-30); Chloride 103 mmol/L (98-107); Cholesterol 183 mg/dL (0-200); Estimated Glomerular Filt Rate > 60; Glucose 208 mg/dL (65-110); HDL Direct 58 mg/dL; Potassium 4.3 mmol/L (3.4-5.0); Sodium 136 mmol/L (137-145); Triglycerides 141 mg/dL (<150)
[2023-02-19 09:45] LABS: LDL Cholesterol Direct 88 mg/dL
[2023-02-19 11:14] LABS: Hemoglobin A1C 6.6 % (<5.7)
== END 2023-02-19 08:37 | disposition home or self-care (01) ==
LOC: ANHLAB 08:39
PROVIDERS: PCP Family Medicine; Visit Provider Family Medicine
DX: E78.2 Mixed hyperlipidemia (principal); R73.03 Prediabetes
CPT/HCPCS: 36415; 80053; 80061; 83036

== ENCOUNTER 2023-08-06 11:16 | Outpatient (CLI) | payer MEDICARE, SELFPAY ==
[2023-08-06 11:50] LABS: Alanine Aminotransferase 20 U/L (6-35); Albumin Level 4.5 g/dL (3.5-5.1); Alkaline Phosphatase 61 U/L (38-126); Anion Gap 7 mmol/L (4-12); Aspartate Amino Transferase 20 U/L (14-36); Bilirubin,Total 0.9 mg/dL (0.2-1.3); Blood Urea Nitrogen 16 mg/dL (7-17); Calcium 9.7 mg/dL (8.4-10.2); Carbon Dioxide 27 mmol/L (22-30); Chloride 102 mmol/L (98-107); Cholesterol 207 mg/dL (0-200); Estimated Glomerular Filt Rate > 60; Glucose 180 mg/dL (65-110); HDL Direct 70 mg/dL; Potassium 4.3 mmol/L (3.4-5.0); Sodium 136 mmol/L (137-145); Triglycerides 143 mg/dL (<150)
[2023-08-06 12:01] LABS: LDL Cholesterol Direct 112 mg/dL
[2023-08-06 12:11] LABS: Creatinine Urine 116.8 mg/dL
[2023-08-06 12:16] LABS: MALB Creatinine Ratio 74.4 mg/g (0-30); Microalbumin Urine Random 86.9 mg/L (0-16.7)
[2023-08-06 12:23] LABS: Vitamin D 25 Hydroxy 17.2 ng/mL
[2023-08-06 20:19] LABS: Hemoglobin A1C 7.3 % (<5.7)
== END 2023-08-06 11:17 | disposition home or self-care (01) ==
LOC: ANHLAB 11:19
PROVIDERS: PCP Family Medicine; Visit Provider Physician Assistant Medical
DX: E78.2 Mixed hyperlipidemia (principal); E55.9 Vitamin D deficiency, unspecified; E11.9 Type 2 diabetes mellitus without complications; F41.9 Anxiety disorder, unspecified
CPT/HCPCS: 36415; 80053; 80061; 82043; 82306; 83036; 84443

== ENCOUNTER 2023-09-19 10:58 | Emergency (ER) | payer MEDICARE, SELFPAY ==
[2023-09-19 11:11] VITALS: BP 159/80; PULSE 86; RESP 18; TEMP 36.4; O2SAT 97
--- NOTE | 2023-09-19 11:30 | ED.FEMALEGU ---
HPI - Female Genitourinary General Chief complaint: Urogenital-Female Stated complaint: Sore Throat Coughing UTI Time Seen by Provider: 09/19/23 11:22 Source: patient and RN notes reviewed Mode of arrival: ambulatory Limitations: no limitations History of Present Illness HPI Narrative: Patient presents today complaining of a 10-14 day history of urinary frequency. She noted some cloudiness in her urine today and started experiencing some nausea. She also reports some intermittent dysuria since onset. She does have history of incontinence for which she takes medication prescribed by her urologist. She did have 2 episodes of incontinence last night. She has been taking some cranberry pills. She also complains of 3 day history of cough and nasal congestion for which she has been using Mucinex and Tessalon Perles with some mild relief. She is requesting a refill on some Tessalon Perles as for is a very old. Patient denies any shortness of breath, chest pain, abdominal pain, back pain. Related Data Home Medications Medication Instructions Recorded Confirmed blood-glucose meter (OneTouch 12/06/20 06/10/23 Verio Flex Meter) vibegron 75 mg tablet (Gemtesa) 75 mg PO DAILY 09/19/23 09/19/23 Allergies Allergy/AdvReac Type Severity Reaction Status Date / Time lisinopril AdvReac Intermediate Cough Verified 09/19/23 11:12 Review of Systems Review of Systems: CONSTITUTIONAL: Denies body aches, fever, chills, or sweats. EYES: Denies visual changes, redness, or discharge. ENT: Denies rhinorrhea, sore throat, or otalgia.+ congestion CARDIOVASCULAR: Denies chest pain, palpitations, or edema. RESPIRATORY: Denies dyspnea.+ cough GASTROINTESTINAL: Denies abdominal pain, vomiting, or diarrhea.+ nausea GENITOURINARY: + dysuria, frequency SKIN: Denies rash, itching, or wounds. MUSCULOSKELETAL: Denies back pain, joint pain, or myalgia. NEUROLOGIC: Denies headache, numbness, tingling, or weakness. PSYCH: Denies depression or anxiety. [facility] Past Medical History Medical History Depression Diabetes Dyspnea Group G streptococcal infection History of foot fracture (~08/2019) History of spinal fracture (~06/2019) Hyperlipidemia Hypertension Hypothyroidism, unspecified Left flank pain Localized osteoarthritis of knees, bilateral Major depression Morbid obesity with BMI of 40.0-44.9, adult Psoriasis Right knee pain Spinal stenosis, lumbar Type 2 diabetes mellitus Surgical History Surgical History No significant past surgical history Family History Family History Other Diabetes mellitus Family history of polycystic kidney disease Hypertension Social History Social History Smoking status: Never smoker Second hand tobacco smoke exposure: No Alcohol intake: current Alcohol use details: Occasional Substance use: never Substance use type: does not use Do You Feel Safe in your Home?: Yes Lack of Transportation: No Lack of Food: Never True Current Housing: I Have Housing Concerned About Future Housing: No Difficulty Paying Gas/Electric Bills: No Difficulty Paying for Meds: No Currently Unemployed: No Education: High School Diploma/GED Difficulty w/ Childcare or Family Care: No Living arrangements: alone Occupation/Education: occupation Gender identity (if verbalized by the patient): Female Sexual Orientation (if Verbalized by the Patient): Straight or Heterosexual Spiritual care concerns: No Agree to blood products: Yes Comments At time of signature, I have reviewed and agree with nursing past medical, surgical, social and family history unless otherwise noted. Please see nursing chart for further information. There is no relevant fam
[2023-09-19 11:39] VITALS: RESP 18
--- NOTE | 2023-09-19 11:42 | PC.NURSE ---
information put in on wrong patient
== END 2023-09-19 11:48 | disposition home or self-care (01) ==
PROVIDERS: Emergency Provider Nurse Practitioner; PCP Family Medicine
DX: N30.01 Acute cystitis with hematuria (principal); J06.9 Acute upper respiratory infection, unspecified; B96.20 Unspecified Escherichia coli [E. coli] as the cause of diseases classified elsewhere; E11.9 Type 2 diabetes mellitus without complications; E78.5 Hyperlipidemia, unspecified; I10 Essential (primary) hypertension; E03.9 Hypothyroidism, unspecified; E66.01 Morbid (severe) obesity due to excess calories; Z68.41 Body mass index [BMI] 40.0-44.9, adult; M17.0 Bilateral primary osteoarthritis of knee; M48.061 Spinal stenosis, lumbar region without neurogenic claudication
CPT/HCPCS: 81003; 87077; 87086; 87088; 87186; 99213; G0463

== ENCOUNTER 2023-10-05 17:24 | Emergency (ER) | payer MEDICARE, SELFPAY ==
--- NOTE | 2023-10-05 17:26 | ED.GENADULT ---
HPI - General Adult General Chief complaint: Urogenital-Female Stated complaint: uti symptoms Time Seen by Provider: 10/05/23 17:26 Source: patient Mode of arrival: ambulatory Limitations: no limitations History of Present Illness HPI narrative: 78-year-old female patient presents to [facility] with complaints of urinary symptoms for the past 3 days. Patient states she has had increasing urination, burning and pain with urination and urgency. Patient states she was here on September 18 and was also diagnosed with UTI was received Augmentin. Patient states she completed the entire course but states she feels that the same symptoms are back. Patient also states she has been feeling so lousy lately she has not taken her blood pressure medicine for the past 2-3 days. Patient denies any chest pain or shortness of breath. Related Data Home Medications Medication Instructions Recorded Confirmed blood-glucose meter (OneTouch 12/06/20 10/05/23 Verio Flex Meter) vibegron 75 mg tablet (Gemtesa) 75 mg PO DAILY 09/19/23 10/05/23 Allergies Allergy/AdvReac Type Severity Reaction Status Date / Time lisinopril AdvReac Intermediate Cough Verified 10/05/23 17:35 Review of Systems Review of Systems: CONSTITUTIONAL: Denies fever, chills, or sweats. EYES: Denies visual changes, redness, or discharge. ENT: Denies rhinorrhea, congestion, sore throat, or otalgia. CARDIOVASCULAR: Denies chest pain, palpitations, or edema. RESPIRATORY: Denies cough or dyspnea. GASTROINTESTINAL: Denies abdominal pain, nausea, vomiting, or diarrhea. GENITOURINARY: positive dysuria , denieshematuria. SKIN: Denies rash or itching. MUSCULOSKELETAL: Denies back pain, joint pain, or myalgia. NEUROLOGIC: Denies headache, numbness, or weakness. PSYCHIATRIC: Denies anxiety or depression. [facility] Past Medical History Medical History Depression Diabetes Dyspnea Group G streptococcal infection History of foot fracture (~08/2019) History of spinal fracture (~06/2019) Hyperlipidemia Hypertension Hypothyroidism, unspecified Left flank pain Localized osteoarthritis of knees, bilateral Major depression Morbid obesity with BMI of 40.0-44.9, adult Psoriasis Right knee pain Spinal stenosis, lumbar Type 2 diabetes mellitus Surgical History Surgical History No significant past surgical history Family History Family History Other Diabetes mellitus Family history of polycystic kidney disease Hypertension Social History Social History Smoking status: Never smoker Second hand tobacco smoke exposure: No Alcohol intake: current Alcohol use details: Occasional Substance use: never Substance use type: does not use Do You Feel Safe in your Home?: Yes Lack of Transportation: No Lack of Food: Never True Current Housing: I Have Housing Concerned About Future Housing: No Difficulty Paying Gas/Electric Bills: No Difficulty Paying for Meds: No Currently Unemployed: No Education: High School Diploma/GED Difficulty w/ Childcare or Family Care: No Living arrangements: alone Occupation/Education: occupation Gender identity (if verbalized by the patient): Female Sexual Orientation (if Verbalized by the Patient): Straight or Heterosexual Spiritual care concerns: No Agree to blood products: Yes Comments At the time of my signature I agree with nursing past medical history, surgical, social, and family history. There is no relevant family history pertinent to the presenting complaint. Exam Narrative: GENERAL: Well-appearing, well-nourished, and in no acute distress. HEAD: Normocephalic, atraumatic. EYES: PERRLA and EOMI. ENT: Nares clear, no rhinorrhea or epistaxis. Mucous membranes moist. NECK: Supple
[2023-10-05 17:37] VITALS: BP 180/125; PULSE 102; RESP 16; TEMP 36.9; O2SAT 97
[2023-10-05 17:57] VITALS: BP 210/96
[2023-10-05 18:10] VITALS: BP 180/96
== END 2023-10-05 18:12 | disposition home or self-care (01) ==
PROVIDERS: Emergency Provider Nurse Practitioner Family; PCP Family Medicine
DX: N30.01 Acute cystitis with hematuria (principal); I10 Essential (primary) hypertension; E11.9 Type 2 diabetes mellitus without complications; E78.5 Hyperlipidemia, unspecified; E03.9 Hypothyroidism, unspecified; M17.0 Bilateral primary osteoarthritis of knee; E66.01 Morbid (severe) obesity due to excess calories; Z68.41 Body mass index [BMI] 40.0-44.9, adult; M48.061 Spinal stenosis, lumbar region without neurogenic claudication
CPT/HCPCS: 81003; 87077; 87086; 87088; 87186; 99213; G0463

== ENCOUNTER 2023-11-03 15:14 | Emergency (ER) | payer MEDICARE, SELFPAY ==
[2023-11-03 15:21] VITALS: BP 145/72; PULSE 104; RESP 18; TEMP 36.5; O2SAT 100
--- NOTE | 2023-11-03 15:41 | ED.FEMALEGU ---
HPI - Female Genitourinary General Chief complaint: Urogenital-Female Stated complaint: Urinary Problems Time Seen by Provider: 11/03/23 15:14 Source: patient Mode of arrival: ambulatory Limitations: no limitations History of Present Illness HPI Narrative: 78-year-old female presents to [facility] with complaints of urinary frequency, urgency, pain and burning for the past 2 days. Patient reports that she had Botox procedure completed to her bladder 2 weeks ago. Patient reports that she is scheduled to follow-up with urology and 4 days. Patient denies fever, body aches, chills, nausea, vomiting or diarrhea. MD elicited complaint: dysuria Onset (ago): day(s) (2) Vaginal discharge: none Vaginal bleeding: none Urinary symptoms: Dysuria, Urgency and Frequency Associated symptoms: denies other symptoms Related Data Home Medications Medication Instructions Recorded Confirmed blood-glucose meter (OneTouch 12/06/20 11/03/23 Verio Flex Meter) vibegron 75 mg tablet (Gemtesa) 75 mg PO DAILY 09/19/23 11/03/23 estradiol 0.01% (0.1 mg/gram) 1 g vaginal 2XW 11/03/23 11/03/23 vaginal cream Allergies Allergy/AdvReac Type Severity Reaction Status Date / Time lisinopril AdvReac Intermediate Cough Verified 11/03/23 15:16 Review of Systems Constitutional: Constitutional: Denies chills and Denies fatigue ENT: Denies dizziness, Denies epistaxis and Denies nasal congestion Cardiovascular: Cardiovascular: Denies chest pain Respiratory: Respiratory: Denies cough, Denies dyspnea and Denies wheezing Gastrointestinal: Gastrointestinal: Denies diarrhea, Denies nausea and Denies vomiting Genitourinary: Genitourinary: Denies abnormal vaginal bleeding, Denies hematuria, Reports nocturia, Denies genital lesions, Reports dysuria, Denies pelvic pain, Denies flank pain and Denies vaginal discharge Integumentary/Breasts: Skin/Breast: Denies pruritus, Denies erythema and Denies rash Neurologic: Denies vertigo, Denies dizziness and Denies syncope [facility] Past Medical History Medical History Depression Diabetes Dyspnea Group G streptococcal infection History of foot fracture (~08/2019) History of spinal fracture (~06/2019) Hyperlipidemia Hypertension Hypothyroidism, unspecified Left flank pain Localized osteoarthritis of knees, bilateral Major depression Morbid obesity with BMI of 40.0-44.9, adult Psoriasis Right knee pain Spinal stenosis, lumbar Type 2 diabetes mellitus Surgical History Surgical History No significant past surgical history Family History Family History Other Diabetes mellitus Family history of polycystic kidney disease Hypertension Social History Social History Smoking status: Never smoker Second hand tobacco smoke exposure: No Alcohol intake: current Alcohol use details: Occasional Substance use: never Substance use type: does not use Do You Feel Safe in your Home?: Yes Lack of Transportation: No Lack of Food: Never True Current Housing: I Have Housing Concerned About Future Housing: No Difficulty Paying Gas/Electric Bills: No Difficulty Paying for Meds: No Currently Unemployed: No Education: High School Diploma/GED Difficulty w/ Childcare or Family Care: No Living arrangements: alone Occupation/Education: occupation Gender identity (if verbalized by the patient): Female Sexual Orientation (if Verbalized by the Patient): Straight or Heterosexual Spiritual care concerns: No Agree to blood products: Yes Comments At time of signature, I agree with nursing past medical, surgical, social and family history. There is no relevant family history pertinent to the presenting complaint. Exam Const: General: healthy appearing, no acute distres
[2023-11-03 15:58] LABS: EDUAAPPEAR Cloudy; EDUABILI Negative; EDUABLOOD Trace; EDUACOLOR1 Yellow; EDUAGLUCOSE 2+; EDUAKETONE Negative; EDUALEUKO Trace; EDUANITRATE Positive; EDUAPH 6.5; EDUAPROTEIN 1+; EDUAUROBILI 0.2
== END 2023-11-03 16:04 | disposition home or self-care (01) ==
PROVIDERS: Emergency Provider Nurse Practitioner Family; PCP Family Medicine
DX: N39.0 Urinary tract infection, site not specified (principal); B96.89 Other specified bacterial agents as the cause of diseases classified elsewhere; E11.9 Type 2 diabetes mellitus without complications; E78.5 Hyperlipidemia, unspecified; I10 Essential (primary) hypertension; E03.9 Hypothyroidism, unspecified; M17.0 Bilateral primary osteoarthritis of knee; E66.01 Morbid (severe) obesity due to excess calories; Z68.41 Body mass index [BMI] 40.0-44.9, adult; M48.061 Spinal stenosis, lumbar region without neurogenic claudication
CPT/HCPCS: 81003; 87077; 87086; 87088; 87186; 99213; G0463

== ENCOUNTER 2023-11-25 11:00 | Inpatient (IN) | payer MEDICARE, SELFPAY ==
[2023-11-25] VITALS (40 sets, daily range): BP systolic 104–164; BP diastolic 55–86; PULSE 80–120; RESP 11–24; TEMP 36.2–36.5; O2SAT 96–100; BMI 42.6
--- NOTE | ~2023-11-25 | XR_ITS ---
EXAMINATION: XR chest 2V DATE: 11/26/2023 08:38 INDICATION: Dyspnea on exertion. TECHNIQUE: Frontal and lateral views of the chest were obtained. COMPARISON: Chest single view 01/15/2023, CT abdomen and pelvis 11/25/2023 FINDINGS: There is mild atelectasis and scarring in the lower lung zones. No pleural effusion or pneu mothorax. The heart size is normal. IMPRESSION: 1. Mild atelectasis and scarring in the lower lung zones. Reviewed, dictated and finalized at location A.
--- NOTE | ~2023-11-25 | CT_ITS ---
CT abdomen pelvis w con Ordering provider: Raghav Bernardo MD History: 78 years Female with . urosepsis . Comparison: None. Technique: CT abdomen and pelvis with IV and without oral contrast. Automated exposure control and it erative reconstruction technique were employed. The dose-length product was 1407.33 mGy-cm. 100 mL Om nipaque 350 was given IV. Findings: VISUALIZED LOWER CHEST: Dependent atelectatic changes. UPPER ABDOMINAL ORGANS: Liver: Normal. Gallbladder: Distended with no definite stones. Spleen: Normal. Stomach/duodenum: Sliding hiatus hernia Pancreas: Normal. Adrenals: Normal. Kidneys: Tiny cyst in the right kidney upper pole. Tiny cyst in the left kidney upper pole. PELVIC ORGANS: The bladder is shows slightly thickened wall. BOWEL AND MESENTERY: Colon: no evidence of diverticulitis. Fecal material is loaded in the colon. Appendix is not demonstr ated with no definite evidence of appendicitis. Small Bowel: Normal. No obstruction. Peritoneum/mesentery: No free air or free fluid. No mesenteric lymphadenopathy. RETROPERITONEUM: Mild atheromatous disease of the abdominal aorta. No retroperitoneal lymphadenopat hy. MUSCULOSKELETAL: Superficial soft tissues: The superficial soft tissues are normal. Bones: Age appropriate degenerative changes of the spine. Loss of height is seen in L2 which is most likely chronic. Clinical correlation advised. IMPRESSION: 1. No evidence of appendicitis, diverticulitis or intestinal obstruction. 2. Distended gallbladder with no definite stones. 3. Sliding hiatus hernia. 4. Constipation. 5. Slightly thickened wall of the urinary bladder. Evaluation for cystitis advised. 6. Loss of height of L2 which is most likely chronic. Clinical correlation advised. Reviewed, dictated and finalized at location A. IMPRESSION: 1. No evidence of appendicitis, diverticulitis or intestinal obstruction. 2. Distended gallbladder with no definite stones. 3. Sliding hiatus hernia. 4. Constipation. 5. Slightly thickened wall of the urinary bladder. Evaluation for cystitis adv ised. 6. Loss of height of L2 which is most likely chronic. Clinical correlation adv ised.
[2023-11-25 12:22] LABS: Basophils Absolute Auto 0.1 K/mm3 (0.0-0.1); Basophils Percent Auto 0.9 % (0.2-1.2); Eosinophils Absolute Auto 0.2 K/mm3 (0-0.3); Eosinophils Percent Auto 2.9 % (0-4.4); Hematocrit 40.1 % (37.0-47.0); Hemoglobin 12.9 g/dL (12.0-15.0); Immature Granulocyte Absolute 0.01 K/mm3 (0.00-0.031); Immature Granulocyte Percent A 0.2 % (0-0.5); Lymphocytes Absolute Auto 1.94 K/mm3 (0.9-3.2); Lymphocytes Percent Auto 35.1 % (18.3-44.2); Mean Corpuscular HGB Conc 32.2 g/dl (32-36); Mean Corpuscular Hemoglobin 26.9 pg (26-34); Mean Corpuscular Volume 83.7 fl (80-100); Mean Platelet Volume 10.9 fl (7.4-10.4); Monocytes Absolute Auto 0.5 K/mm3 (0.1-0.6); Monocytes Percent Auto 8.7 % (2.6-8.5); Neutrophils Absolute Auto 2.9 K/mm3 (1.3-6.7); Neutrophils Percent Auto 52.2 % (45.5-73.1); Platelet Count Result 316 k/mm3 (150-375); Red Blood Count 4.79 M/mm3 (4.2-5.4); Red Cell Distribution Width 13.4 % (11.5-14.5); White Blood Count 5.5 K/mm3 (4.5-10.0)
--- NOTE | 2023-11-25 12:23 | ED_ITS ---
HPI - Female Genitourinary General Chief complaint: Urogenital-Female Stated complaint: UTI with positive culture Time Seen by Provider: 11/25/23 12:02 History of Present Illness HPI Narrative: This is a 78-year-old male with a past medical history significant for type 2 diabetes, urinary incontinence, hyperlipidemia, hypertension. She presents today with persistent UTI symptoms including dysuria, frequency. She has been seen multiple times by her primary care provider and urologist. She recently had a procedure done 1 month prior for Botox injections into her urinary system to alleviate her incontinence issues which she says been working well. Patient has been dealing with persistent UTI symptoms since October. She has been on multiple courses of antibiotics. Patient is taking Farxiga which raises her high risk for UTIs. Patient was referred to the ED today for IV antibiotics after urine culture on outpatient basis grew Klebsiella pneumoniae that is multidrug resistant. Patient denies any fever, chills, rigors, shortness of breath, chest pain, nausea, fever, chills, diarrhea. No abdominal pain or back pain. Related Data Home Medications Medication Instructions Recorded Confirmed cyanocobalamin (vitamin B-12) 500 500 mcg PO DAILY 11/25/23 11/25/23 mcg tablet escitalopram oxalate 20 mg tablet 20 mg PO DAILY 11/25/23 11/25/23 (Lexapro) levothyroxine 50 mcg tablet 50 mcg PO DAILY 11/25/23 11/25/23 (Synthroid) magnesium 200 mg tablet 200 mg PO DAILY 11/25/23 11/25/23 Allergies Allergy/AdvReac Type Severity Reaction Status Date / Time lisinopril AdvReac Intermediate Cough Verified 11/21/23 09:58 Review of Systems Review of Systems: As reviewed above in HPI [facility] Past Medical History Medical History Depression Diabetes Dyspnea Group G streptococcal infection History of foot fracture (~08/2019) History of spinal fracture (~06/2019) Hyperlipidemia Hypertension Hypothyroidism, unspecified Left flank pain Localized osteoarthritis of knees, bilateral Major depression Morbid obesity with BMI of 40.0-44.9, adult Psoriasis Right knee pain Spinal stenosis, lumbar Type 2 diabetes mellitus Surgical History Surgical History No significant past surgical history Family History Family History Other Diabetes mellitus Family history of polycystic kidney disease Hypertension Social History Social History Smoking status: Never smoker Second hand tobacco smoke exposure: No Alcohol intake: never Alcohol use details: Occasional Substance use: never Substance use type: does not use Do You Feel Safe in your Home?: Yes Lack of Transportation: No Lack of Food: Never True Current Housing: I Have Housing Concerned About Future Housing: No Difficulty Paying Gas/Electric Bills: No Difficulty Paying for Meds: No Currently Unemployed: No Education: High School Diploma/GED Difficulty w/ Childcare or Family Care: No Living arrangements: alone Occupation/Education: occupation Gender identity (if verbalized by the patient): Female Sexual Orientation (if Verbalized by the Patient): Straight or Heterosexual Spiritual care concerns: No Agree to blood products: Yes Exam Narrative: GENERAL: [Well-appearing, well-nourished, and in no acute distress.] HEAD: [Normocephalic, atraumatic.] EYES: [PERRLA and EOMI.] ENT: Nares clear, no rhinorrhea or epistaxis. Mucous membranes moist. NECK: Supple. CHEST: [Clear to auscultation. No respiratory distress.] HEART: [Regular rate and rhythm]. No murmur heard. [Normal peripheral pulses.] ABDOMEN: [Soft, nondistended], [nontender], [No rigidity or guarding] EXTREMITIES: Normal range of motion. [No edema.] SKIN: Warm, dry, no rash. NEURO: [No focal deficits]. Alert and oriented [x3.] PSYCH: [Normal mood and affect.] Course Vital Signs Vital signs: Vital Signs Temperature 36.5 C 11/25/23 11:16 Pulse Rate 111 H 11/25/23 11:16 Respiratory Rate 23 H 11/25/23 11:16 Blood Pressure 104/62 11/25/23 11:16 Pulse Oximetry 98 11/25/23 11:16 Temperature 36.2 C L 11/25/23 20:18 Pulse Rate 95 11/25/23 20:18 Respiratory Rate 18 11/25/23 20:18 Blood Pressure 129/62 11/25/23 20:18 Pulse Oximetry 100 11/25/23 20:18 MDM - Female Genitourinary MDM Narrative Medical decision making narrative: This is a 78-year-old female with history of type 2 diabetes currently on Farxiga, urinary incontinence currently undergoing Botox injections, hypertension, hyperlipidemia. Today she presents from her primary care provider's office for IV antibiotics for multidrug resistant Klebsiella pneumonia that was found on outpatient urine culture. Patient has been develop persistent urinary symptoms for last month. She has been to multiple antibiotics and nitrofurantoin, Bactrim, ciprofloxacin without any relief of her symptoms. On review of the EMR I did find the urine culture and showed that she does have MDR Klebsiella that is susceptible to ertapenem, imipenem, meropenem and piperacillin tazobactam but resistant to most other drugs. Unfortunately she will require admission to the hospital for IV antibiotic therapy of her multi drug-resistant UTI. Laboratory studies were obtained to make sure she does not have any blood stream infection with blood cultures, lactic acid was obtained as was a CBC, CMP and a urinalysis. She was given 1 L likely Ringer bolus. Heart rate improved after fluids and reassess her pulse went from 111- >80. She is afebrile presently. Laboratory studies showed no leukocytosis or anemia. Electrolyte panel showed some anion gap elevated acidosis with anion gap of 21 a bicarb of 17. Creatinine of 1.10 which is slightly above baseline. Lactic acid came back significantly elevated 9.0. She was given additional fluid resuscitation and down trending lactate of 5.7 and then further down to 4.3 after fluids. The hydroxybutyrate was negative. Urinalysis showed active signs of infection with white cells, leukocyte esterase and bacteria. A CT scan of the abdomen and pelvis revealed no evidence of appendicitis, diverticulitis or any intestinal obstruction. Small and gallbladder distention without any definitive stones. Some constipation, cystitis evident. chronic findings in the vertebral spine Patient was re-evaluated after fluids and continued to improve from a hemodynamic perspective as well as a down trending lactic acidosis. Repeat BMP was reassuring. Patient will be admitted to the hospital at this time for continued therapy with IV antibiotics and fluids. I discussed the case with the hospitalist via the MLP and after relaying the imaging findings, laboratory studies, assessment and re-evaluations decision was made to admit the patient to the intermediate care unit. Lab Data 11/25/23 12:15 11/25/23 15:09 Labs: Lab Results 11/25/23 11/25/23 11/25/23 Range/Units 12:15 12:16 12:57 WBC 5.5 (4.5-10.0) K/mm3 RBC 4.79 (4.2-5.4) M/mm3 Hgb 12.9 (12.0-15.0) g/dL Hct 40.1 (37.0-47.0) % MCV 83.7 (80-100) fl MCH 26.9 (26-34) pg MCHC 32.2 (32-36) g/dl RDW 13.4 (11.5-14.5) % Plt Count 316 (150-375) k/mm3 MPV 10.9 H (7.4-10.4) fl Immature Gran % (Auto) 0.2 (0-0.5) % Neut % (Auto) 52.2 (45.5-73.1) % Lymph % (Auto) 35.1 (18.3-44.2) % [place] % (Auto) 8.7 H (2.6-8.5) % Eos % (Auto) 2.9 (0-4.4) % Baso % (Auto) 0.9 (0.2-1.2) % Lymph # (Auto) 1.94 (0.9-3.2) K/mm3 [place] # (Auto) 0.5 (0.1-0.6) K/mm3 Eos # (Auto) 0.2 (0-0.3) K/mm3 Baso # (Auto) 0.1 (0.0-0.1) K/mm3 Abs Immat Gran (auto) 0.01 (0.00-0.031) K/mm3 Absolute Neuts (auto) 2.9 (1.3-6.7) K/mm3 Absolute Nucleated RBC 0.000 (0.0-0.012) K/mm3 Nucleated RBC % 0.0 (0.0-0.2) % Sodium 136 L (137-145) mmol/L Potassium 4.2 (3.4-5.0) mmol/L Chloride 98 (98-107) mmol/L Carbon Dioxide 17 L (22-30) mmol/L Anion Gap 21 H (4-12) mmol/L BUN 15 (7-17) mg/dL Creatinine 1.10 H (0.7-1.0) mg/dL Estim Creat Clear Calc 47 ml/min Estimated GFR 48 L (59 - ) Glucose 170 H (65-110) mg/dL Lactic Acid 9.0 H* 5.7 H* (0.7-2.0) mmol/L Calcium 10.1 (8.4-10.2) mg/dL Total Bilirubin 0.7 (0.2-1.3) mg/dL AST 23 (14-36) U/L ALT 25 (6-35) U/L Alkaline Phosphatase 78 (38-126) U/L Total Protein 8.0 (6.3-8.2) g/dL Albumin 4.7 (3.5-5.1) g/dL Beta-Hydroxybutyrate/Acetoacetate (0.02-0.27) mmol/L Procalcitonin 0.1 ng/mL Urine Color (Yellow) Urine Appearance (Clear) Urine pH (5.0-9.0) Ur Specific [place] (1.001-1.035) Urine Protein (Negative) mg/dL Urine Glucose (UA) (Negative) mg/dL Urine Ketones (Negative) mg/dL Ur Blood (Man) (Negative) Urine Nitrate (Negative) Urine Bilirubin (Negative) Urine Urobilinogen (<2.0) mg/dL Leukocyte Esterase Rfl (Negative) MICHAEL/UL Urine RBC (0-2) /hpf Urine WBC (0-3) /hpf Ur Squamous Epith Cells (Few) /hpf Urine Bacteria /hpf Urine Casts 11/25/23 11/25/23 11/25/23 Range/Units 15:09 16:09 16:36 WBC (4.5-10.0) K/mm3 RBC (4.2-5.4) M/mm3 Hgb (12.0-15.0) g/dL Hct (37.0-47.0) % MCV (80-100) fl MCH (26-34) pg MCHC (32-36) g/dl RDW (11.5-14.5) % Plt Count (150-375) k/mm3 MPV (7.4-10.4) fl Immature Gran % (Auto) (0-0.5) % Neut % (Auto) (45.5-73.1) % Lymph % (Auto) (18.3-44.2) % [place] % (Auto) (2.6-8.5) % Eos % (Auto) (0-4.4) % Baso % (Auto) (0.2-1.2) % Lymph # (Auto) (0.9-3.2) K/mm3 [place] # (Auto) (0.1-0.6) K/mm3 Eos # (Auto) (0-0.3) K/mm3 Baso # (Auto) (0.0-0.1) K/mm3 Abs Immat Gran (auto) (0.00-0.031) K/mm3 Absolute Neuts (auto) (1.3-6.7) K/mm3 Absolute Nucleated RBC (0.0-0.012) K/mm3 Nucleated RBC % (0.0-0.2) % Sodium 131 L (137-145) mmol/L Potassium 4.0 (3.4-5.0) mmol/L Chloride 98 (98-107) mmol/L Carbon Dioxide 16 L (22-30) mmol/L Anion Gap 17 H (4-12) mmol/L BUN 15 (7-17) mg/dL Creatinine 0.90 (0.7-1.0) mg/dL Estim Creat Clear Calc 57 ml/min Estimated GFR > 60 (59 - ) Glucose 100 (65-110) mg/dL Lactic Acid 4.3 H* (0.7-2.0) mmol/L Calcium 9.3 (8.4-10.2) mg/dL Total Bilirubin (0.2-1.3) mg/dL AST (14-36) U/L ALT (6-35) U/L Alkaline Phosphatase (38-126) U/L Total Protein (6.3-8.2) g/dL Albumin (3.5-5.1) g/dL Beta-Hydroxybutyrate/Acetoacetate 0.19 (0.02-0.27) mmol/L Procalcitonin ng/mL Urine Color Yellow (Yellow) Urine Appearance Cloudy H (Clear) Urine pH 5.5 (5.0-9.0) Ur Specific [place] 1.018 (1.001-1.035) Urine Protein Negative (Negative) mg/dL Urine Glucose (UA) Negative (Negative) mg/dL Urine Ketones Negative (Negative) mg/dL Ur Blood (Man) Non-hemolyzed trace H (Negative) Urine Nitrate Positive H (Negative) Urine Bilirubin Negative (Negative) Urine Urobilinogen 0.2 (<2.0) mg/dL Leukocyte Esterase Rfl 3+ H (Negative) MICHAEL/UL Urine RBC 0-2 (0-2) /hpf Urine WBC >100 H (0-3) /hpf Ur Squamous Epith Cells None seen (Few) /hpf Urine Bacteria 2+ H /hpf Urine Casts 3-5 ABG Data ABG results: 11/25/23 16:20 Puncture Site Right radial ABG pH 7.393 ABG pCO2 31.4 L ABG pO2 88.3 ABG PO2/FiO2 Ratio 4.20 ABG HCO3 18.7 L ABG O2 Saturation 96.8 ABG O2 Content 16.8 ABG Base Excess -5.2 A-a Gradient 23.8 Oxyhemoglobin 96.6 Total Hemoglobin 12.3 O2 Delivery Device Not Reportable O2 Liters/Min Not Reportable FiO2 21 Discharge Plan Discharge Clinical Impression: Sepsis, Acute UTI, Drug (multiple) resistant infection Patient Disposition: Still a Patient Condition: Stable Time of Disposition: 15:10
[2023-11-25 12:54] LABS: Alanine Aminotransferase 25 U/L (6-35); Albumin Level 4.7 g/dL (3.5-5.1); Alkaline Phosphatase 78 U/L (38-126); Anion Gap 21 mmol/L (4-12); Aspartate Amino Transferase 23 U/L (14-36); Bilirubin,Total 0.7 mg/dL (0.2-1.3); Blood Urea Nitrogen 15 mg/dL (7-17); Calcium 10.1 mg/dL (8.4-10.2); Carbon Dioxide 17 mmol/L (22-30); Chloride 98 mmol/L (98-107); Estimated CRCL calculation 47 ml/min; Estimated Glomerular Filt Rate 48; Glucose 170 mg/dL (65-110); Potassium 4.2 mmol/L (3.4-5.0); Sodium 136 mmol/L (137-145)
[2023-11-25 13:22] LABS: Lactic Acid Reflex 5.7 mmol/L (0.7-2.0)
[2023-11-25] MEDS: LACTATED RINGERS 1,000 ML 999 ML IV CONT ×3 (13:32→15:09)
[2023-11-25] MEDS: PIPERACILLIN/TAZ 4.5G/NS 100ML 4.5 GM/100 ML BAG IVPB (13:32)
[2023-11-25] MEDS: MEROPENEM 1 GM/NS 100 ML BAG IVPB (15:09)
[2023-11-25 15:21] LABS: Reflex Lactic Acid Yes or No Add Lactic
[2023-11-25 15:43] LABS: Anion Gap 17 mmol/L (4-12); Blood Urea Nitrogen 15 mg/dL (7-17); Calcium 9.3 mg/dL (8.4-10.2); Carbon Dioxide 16 mmol/L (22-30); Chloride 98 mmol/L (98-107); Estimated CRCL calculation 57 ml/min; Estimated Glomerular Filt Rate > 60; Glucose 100 mg/dL (65-110); Sodium 131 mmol/L (137-145)
[2023-11-25 15:48] LABS: Beta-Hydroxybutyrate/Acetoacetate 0.19 mmol/L (0.02-0.27)
[2023-11-25 16:24] LABS: Alveolar/Arterial O2 Gradient 23.8 mmHg; Base Excess ABG -5.2 mEq/l (+/-2.0); Fractional Inspired Oxygen 21 %; HCO3 ABG 18.7 mEq/l (22.0-26.0); Oxygen Content ABG 16.8 %vol (16.0-22.0); Oxygen Saturation ABG 96.8 % (95.0-100.0); Oxyhemoglobin 96.6 % THb (90.0-100.0); PCO2 ABG 31.4 mmHg (35.0-45.0); PO2 ABG 88.3 mmHg (80.0-100.0); Total Hemoglobin 12.3 g/dL (12.0-18.0); pH ABG 7.393 (7.350-7.450)
[2023-11-25 16:25] LABS: Modified Allen's Test Pass; Site Drawn RIGHT RADIAL
[2023-11-25 16:25] LABS: Add Urine Microscopic? YES; Appearance Urine Cloudy (Clear); Bacteria Urine 2+ /hpf; Bilirubin Urine Negative (Negative); Blood Urine Non-Hemolyzed Trace (Negative); Color Urine Yellow (Yellow); Glucose Urine UA Negative (Negative); Ketones Urine Negative (Negative); Leukocyte Esterase Ur 3+ LEU/UL (Negative); Nitrate Urine Positive (Negative); Protein Urine Negative (Negative); RBC Urine 0-2 /hpf (0-2); Specific Grav Ur 1.018 (1.001-1.035); Squamous Epithelial Cell Urine None Seen /hpf (Few); Urobilinogen Urine 0.2 mg/dL (<2.0); WBC Urine >100 /hpf (0-3); pH Urine 5.5 (5.0-9.0)
--- NOTE | 2023-11-25 16:38 | PM.IMHP ---
H&P: HPI History of Present Illness Date/Time: 11/25/23 16:38 Chief Complaint: MDRO urinary tract infection Narrative: This is a 78-year-old female patient who presented to the emergency department after primary care called her with results of urine culture growing MDRO Klebsiella. She was informed to come to the hospital for IV antibiotics. Patient reports that she was having urinary incontinence and underwent procedure for instillation of botulinum toxin and shortly after that was diagnosed with a urinary tract infection. Patient was previously on combination Farxiga and metformin but she is prone to urinary tract infections so her diabetes medications were changed. In the emergency department workup was significant for severe lactic acidosis with an initial lactic acid of 9. WBC normal at 5.5. patient received IV fluids and recheck a lactic acid still 5.7. Additional significant laboratory findings initial sodium 136, carbon dioxide 17 and anion gap of 21 with a serum glucose of 170 an estimated GFR of 48. Additional IV fluids given and recheck of metabolic panel shows sodium level decreased to 131 carbon dioxide decreased to 16 but anion gap down slightly to 17 and estimated GFR returned to normal as well as blood glucose of 100. Repeat lactic acid down to 4.3. Urinalysis obtained even after patient received IV Zosyn in the emergency department still appears infectious with positive nitrates 3+ leukocyte esterase greater than 100 white cells and 2+ urine bacteria. CT scan abdomen pelvis with IV contrast obtained showing distended gallbladder bladder wall thickening consistent with cystitis and notably no abscess formation. I discussed patient that her lactic acid elevation is concerning and possibly a combination infectious and type B lactic acidosis due to anti diabetic medications. She states that she is due for her Ozempic shot today and she brought it to the hospital but we asked her not to administer. I instructed that we would be holding several medications including metformin, glimepiride, Ozempic, antihypertensives and due to low sodium holding venlafaxine, Lexapro and bupropion. My recommendation is patient would not restart on metformin upon discharge as this is the most likely offending agent. Review of Systems Review of Systems: All systems reviewed & are unremarkable except as noted in HPI and below PMFSH Past Medical History Medical History Depression Diabetes Dyspnea Group G streptococcal infection History of foot fracture (~08/2019) History of spinal fracture (~06/2019) Hyperlipidemia Hypertension Hypothyroidism, unspecified Left flank pain Localized osteoarthritis of knees, bilateral Major depression Morbid obesity with BMI of 40.0-44.9, adult Psoriasis Right knee pain Spinal stenosis, lumbar Type 2 diabetes mellitus Surgical History Surgical History No significant past surgical history Family History Family History Other Diabetes mellitus Family history of polycystic kidney disease Hypertension Social History Social History Smoking status: Never smoker Second hand tobacco smoke exposure: No Alcohol intake: never Alcohol use details: Occasional Substance use: never Substance use type: does not use Do You Feel Safe in your Home?: Yes Lack of Transportation: No Lack of Food: Never True Current Housing: I Have Housing Concerned About Future Housing: No Difficulty Paying Gas/Electric Bills: No Difficulty Paying for Meds: No Currently Unemployed: No Education: High School Diploma/GED Difficulty w/ Childcare or Family Care: No Living arrangements: alone Occupation/Education: occupation Gender identity (if verbalized by the patient): Female Sexual Orientation (if Verbalized by the Patient): Straight or Heterosexual Spiritual care concerns: No Agree to blood products: Yes Meds Home Medications and Allergies Home Medications Medication Instructions Recorded Confirmed Type pen needle, diabetic 32 gauge x #50 ea 03/06/21 11/03/23 Rx 5/32 (Easy Comfort Pen [place]) atorvastatin 10 mg tablet 10 mg PO DAILY #90 tabs 02/28/23 11/25/23 Rx amlodipine 10 mg tablet 10 mg PO DAILY #90 tabs 07/19/23 11/25/23 Rx bupropion HCl 150 mg tablet,12 hr 150 mg PO BID #270 tabs 10/14/23 11/25/23 Rx sustained-release venlafaxine 75 mg capsule,extended 225 mg PO DAILY #270 caps 10/14/23 11/25/23 Rx release 24 hr blood sugar diagnostic #100 ea 11/04/23 Rx blood-glucose meter #1 ea 11/04/23 Rx blood-glucose meter (OneTouch #1 ea 11/04/23 Rx Verio Flex Meter) lancets 31 gauge #100 ea 11/04/23 Rx semaglutide 0.25 mg or 0.5 mg (2 0.25 mg (0.368 mL) subcut WEEKLY 11/05/23 11/25/23 Rx mg/3 mL) subcutaneous pen injector #3 mL (Ozempic) cyanocobalamin (vitamin B-12) 500 500 mcg PO DAILY 11/25/23 11/25/23 History mcg tablet escitalopram oxalate 20 mg tablet 20 mg PO DAILY 11/25/23 11/25/23 History (Lexapro) levothyroxine 50 mcg tablet 50 mcg PO DAILY 11/25/23 11/25/23 History (Synthroid) magnesium 200 mg tablet 200 mg PO DAILY 11/25/23 11/25/23 History Allergies Allergy/AdvReac Type Severity Reaction Status Date / Time lisinopril AdvReac Intermediate Cough Verified 11/21/23 09:58 Vital Signs Vital Signs - 24 hr 11/25/23 11:16 11/25/23 12:17 11/25/23 11:21 Temperature 36.5 C Pulse Rate 111 H 80 108 H Respiratory Rate 23 H 14 19 Blood Pressure 104/62 104/62 Pulse Oximetry 98 99 97 11/25/23 11:22 11/25/23 11:30 11/25/23 11:31 Temperature Pulse Rate 107 H 105 H 105 H Respiratory Rate 21 H 16 16 Blood Pressure 112/60 Pulse Oximetry 98 98 98 11/25/23 11:45 11/25/23 11:46 11/25/23 12:00 Temperature Pulse Rate 102 H 101 H 103 H Respiratory Rate 14 16 17 Blood Pressure 125/61 130/75 Pulse Oximetry 99 99 100 11/25/23 12:01 11/25/23 12:15 11/25/23 12:16 Temperature Pulse Rate 102 H 98 98 Respiratory Rate 15 19 16 Blood Pressure 125/59 L Pulse Oximetry 99 100 100 11/25/23 12:30 11/25/23 12:31 11/25/23 12:45 Temperature Pulse Rate 98 99 98 Respiratory Rate 17 18 17 Blood Pressure 125/67 Pulse Oximetry 100 100 100 11/25/23 12:46 11/25/23 13:00 11/25/23 13:17 Temperature Pulse Rate 97 97 120 H Respiratory Rate 20 11 L 24 H Blood Pressure 120/59 L Pulse Oximetry 100 100 11/25/23 13:19 11/25/23 13:30 11/25/23 13:31 Temperature Pulse Rate 107 H 98 96 Respiratory Rate 22 H 20 19 Blood Pressure 160/73 H 127/63 Pulse Oximetry 100 99 100 11/25/23 13:32 11/25/23 13:45 11/25/23 13:46 Temperature Pulse Rate 96 94 95 Respiratory Rate 18 16 15 Blood Pressure 117/66 Pulse Oximetry 99 100 100 11/25/23 14:00 11/25/23 14:01 11/25/23 14:19 Temperature Pulse Rate 95 93 110 H Respiratory Rate 15 17 12 Blood Pressure 132/56 L Pulse Oximetry 100 100 100 11/25/23 14:22 11/25/23 14:30 11/25/23 14:31 Temperature Pulse Rate 102 H 93 92 Respiratory Rate 21 H 18 14 Blood Pressure 150/69 H 138/61 Pulse Oximetry 100 100 100 Exam Narrative: GENERAL: Appears younger than stated age, no acute distress HEAD: Normocephalic, atraumatic. ENT:? Mucous membranes moist. CHEST: Clear to auscultation.? No respiratory distress. subjective dyspnea on exertion HEART: Regular rate and rhythm. ? Normal peripheral pulses. ABDOMEN: Soft, nontender, nondistended. EXTREMITIES: Normal range of motion. No peripheral edema. SKIN: Warm dry normal color NEURO: Alert and oriented x3. PSYCH: Normal mood and affect H&P: Results Labs Labs: Short CBC 11/25/23 Range/Units 12:15 WBC 5.5 (4.5-10.0) K/mm3 Hgb 12.9 (12.0-15.0) g/dL Hct 40.1 (37.0-47.0) % Plt Count 316 (150-375) k/mm3 [facility] 11/25/23 11/25/23 12:16 15:09 Sodium 136 L 131 L Potassium 4.2 4.0 Chloride 98 98 Carbon Dioxide 17 L 16 L BUN 15 15 Creatinine 1.10 H 0.90 Glucose 170 H 100 Calcium 10.1 9.3 Liver Function 11/25/23 Range/Units 12:16 Total Bilirubin 0.7 (0.2-1.3) mg/dL AST 23 (14-36) U/L ALT 25 (6-35) U/L Alkaline Phosphatase 78 (38-126) U/L Albumin 4.7 (3.5-5.1) g/dL Urine 08/12/24 Range/Units 16:09 Urine Color Yellow (Yellow) Urine Appearance Cloudy H (Clear) Urine pH 5.5 (5.0-9.0) Ur Specific [place] 1.018 (1.001-1.035) Urine Protein Negative (Negative) mg/dL Urine Glucose (UA) Negative (Negative) mg/dL ABG ABG results: pH 7.393, pCO2 31.4, PO2 88.3, HC03 18.7, base excess -5.2 on room air Attestation: I personally reviewed and interpreted this ABG as follows: Interpretation: compensated metabolic acidosis Pulse Oximetry SpO2 results: 99-100% on room air Attestation: I personally reviewed and interpreted this pulse oximetry as follows: Interpretation: no need for supplemental oxygenation at this time Imaging CT scan - abdomen: My impression: My independent interpretation of CT scan abdomen pelvis with IV contrast shows very enlarged gallbladder, no obvious obstructing stone; No bowel obstruction,, no obvious obstructive uropathy though the right ureter does appear to be somewhat larger than the left. Radiologist's impression: CT abdomen pelvis w con Ordering provider: Raghav Bernardo MD History: 78 years Female with . urosepsis . Comparison: None. Technique: CT abdomen and pelvis with IV and without oral contrast. Automated exposure control and iterative reconstruction technique were employed. The dose-length product was 1407.33 mGy-cm. 100 mL Omnipaque 350 was given IV. Findings: VISUALIZED LOWER CHEST: Dependent atelectatic changes. UPPER ABDOMINAL ORGANS: Liver: Normal. Gallbladder: Distended with no definite stones. Spleen: Normal. Stomach/duodenum: Sliding hiatus hernia Pancreas: Normal. Adrenals: Normal. Kidneys: Tiny cyst in the right kidney upper pole. Tiny cyst in the left kidney upper pole. PELVIC ORGANS: The bladder is shows slightly thickened wall. BOWEL AND MESENTERY: Colon: no evidence of diverticulitis. Fecal material is loaded in the colon. Appendix is not demonstrated with no definite evidence of appendicitis. Small Bowel: Normal. No obstruction. Peritoneum/mesentery: No free air or free fluid. No mesenteric lymphadenopathy. RETROPERITONEUM: Mild atheromatous disease of the abdominal aorta. No retroperitoneal lymphadenopathy. MUSCULOSKELETAL: Superficial soft tissues: The superficial soft tissues are normal. Bones: Age appropriate degenerative changes of the spine. Loss of height is seen in L2 which is most likely chronic. Clinical correlation advised. IMPRESSION: 1. No evidence of appendicitis, diverticulitis or intestinal obstruction. 2. Distended gallbladder with no definite stones. 3. Sliding hiatus hernia. 4. Constipation. 5. Slightly thickened wall of the urinary bladder. Evaluation for cystitis advised. 6. Loss of height of L2 which is most likely chronic. Clinical correlation advised. Reviewed, dictated and finalized at location A. Assessment and Plan Assessment and plan (1) Multiple drug resistant organism (MDRO) culture positive: Code(s): Z16.24 - Resistance to multiple antibiotics Status: Acute Assessment and Plan: urine culture from outside shows MDRO Klebsiella will treat with meropenem CT abdomen pelvis without abscess or obstructive uropathy though right ureter does seem slightly enlarged compared to the left duration of UTI symptoms 3 weeks. Given prolonged symptomatology with resistant findings of sepsis with likely treat for 7-10 days with IV antibiotics. Patient would probably be a good candidate for midline and home infusion set up (2) Urinary tract infection: Qualifiers: Hematuria presence: with hematuria Urinary tract infection type: acute cystitis Qualified Code(s): N30.01 - Acute cystitis with hematuria Code(s): N39.0 - Urinary tract infection, site not specified Status: Acute Assessment and Plan: see above (3) Sepsis: Code(s): A41.9 - Sepsis, unspecified organism Status: Acute Assessment and Plan: severe lactic acidosis with lactic acid of 9 initially with resultant metabolic acidosis with decreased bicarb and increased anion gap MDRO UTI present from prior culture ER initially provided IV Zosyn but due to MDRO status, initiated meropenem instead (4) Type 2 diabetes mellitus: Qualifiers: Diabetes mellitus complication status: with hyperglycemia Diabetes mellitus fci insulin use: without intermediate school teacher use Qualified Code(s): E11.65 - Type 2 diabetes mellitus with hyperglycemia Code(s): E11.9 - Type 2 diabetes mellitus without complications Status: Acute Assessment and Plan: hold home a medications especially metformin due to severity of lactic acidosis. Will use fingerstick glucose and sliding scale insulin. beta hydroxybutyrate normal after IV fluids (5) Metabolic acidosis: Code(s): E87.20 - Acidosis, unspecified Status: Acute Assessment and Plan: -Severe lactic acidosis with lactic acid of 9 initially with resultant metabolic acidosis with decreased bicarb and increased anion gap. -After 2 L of IV fluids ABG is compensated -anion gap acidosis initially anion gap of 21, down to 17 after 2 L of IV fluids, likely due to severe lactic acidosis which is probably combination anti diabetic medications and sepsis (6) Hyperlipidemia: Qualifiers: Hyperlipidemia type: mixed hyperlipidemia Qualified Code(s): E78.2 - Mixed hyperlipidemia Code(s): E78.5 - Hyperlipidemia, unspecified Status: Acute Assessment and Plan: continue home medications (7) Hypothyroidism, unspecified: Qualifiers: Hypothyroidism type: acquired Qualified Code(s): E03.9 - Hypothyroidism, unspecified Code(s): E03.9 - Hypothyroidism, unspecified Status: Acute Assessment and Plan: continue home medications (8) Hypertension: Qualifiers: Hypertension type: unspecified Qualified Code(s): I10 - Essential (primary) hypertension Code(s): I10 - Essential (primary) hypertension Status: Acute Assessment and Plan: normotensive at this time, hold antihypertensives due to sepsis status and resume if blood pressure becomes hypertensive (9) Depression: Code(s): F32.9 - Major depressive disorder, single episode, unspecified Status: Acute Assessment and Plan: hold bupropion and venlafaxine due to hyponatremia sodium 131 normal saline 100 mL/hr after LR boluses (10) Hyponatremia: Code(s): E87.1 - Hypo-osmolality and hyponatremia Status: Acute Assessment and Plan: Mild hyponatremia with sodium 131 after LR boluses, patient is asymptomatic, normal saline 100 mL/hr and recheck labs in the morning. Quality VTE Prophylaxis VTE prophylaxis: pharmacologic ordered Hospitalist MIPS Advance Care Plan I have confirmed that the patient's Advanced Care Plan is present, code status is documented, or surrogate decision maker is listed in patient medical record.: Yes Medication Reconciliation I have utilized all available resources to obtain, update and review the patients current medications (includes all prescriptions, OTC, herbals, cannabis, and nutritional supplements).: Yes
[2023-11-25 16:54] LABS: Lactic Acid 4.3 mmol/L (0.7-2.0)
--- NOTE | 2023-11-25 17:56 | ADMGEN ---
This patient, Cristi Norwood, was admitted to IMU Room 201-01. Patient/family oriented to hospital policies and general routines including ID bracelet, bed and alarms, visiting hours, pain management, procedures, bathroom and other care routines, personal items, smoking policy, room service/diet, and visiting hours. Information on how to activate the Rapid Response Team has been discussed. Patient/Family are encouraged to report perceived risks to care and to ask questions if they do not understand what they are told or what they should do.
[2023-11-25 18:21] LABS: Glucose Point of Care 97 mg/dl (65-105)
[2023-11-25 20:10] LABS: Glucose Point of Care 142 mg/dl (65-105)
[2023-11-25] MEDS: SODIUM CHLORIDE 0.9% IV 1,000 ML 100 ML IV CONT (20:15)
[2023-11-25 20:36] LABS: Procalcitonin 0.1 ng/mL
[2023-11-25] MEDS: MEROPENEM 1 GM/NS 100 ML 1 GM/100 ML BAG IVPB (21:07)
[2023-11-26] VITALS (11 sets, daily range): BP systolic 130–162; BP diastolic 54–69; PULSE 78–99; RESP 12–20; TEMP 36.2–37; O2SAT 96–100
[2023-11-26 05:28] LABS: Basophils Percent Auto 0.6 % (0.2-1.2); Eosinophils Absolute Auto 0.1 K/mm3 (0-0.3); Eosinophils Percent Auto 2.8 % (0-4.4); Hematocrit 34.4 % (37.0-47.0); Hemoglobin 10.7 g/dL (12.0-15.0); Immature Granulocyte Absolute 0.02 K/mm3 (0.00-0.031); Immature Granulocyte Percent A 0.4 % (0-0.5); Lymphocytes Absolute Auto 1.72 K/mm3 (0.9-3.2); Lymphocytes Percent Auto 34.5 % (18.3-44.2); Mean Corpuscular HGB Conc 31.1 g/dl (32-36); Mean Corpuscular Hemoglobin 26.3 pg (26-34); Mean Corpuscular Volume 84.5 fl (80-100); Monocytes Absolute Auto 0.5 K/mm3 (0.1-0.6); Neutrophils Absolute Auto 2.6 K/mm3 (1.3-6.7); Neutrophils Percent Auto 52.7 % (45.5-73.1); Platelet Count Result 236 k/mm3 (150-375); Red Blood Count 4.07 M/mm3 (4.2-5.4); Red Cell Distribution Width 13.4 % (11.5-14.5)
[2023-11-26 05:45] LABS: Alanine Aminotransferase 16 U/L (6-35); Albumin Level 3.8 g/dL (3.5-5.1); Alkaline Phosphatase 62 U/L (38-126); Anion Gap 9 mmol/L (4-12); Aspartate Amino Transferase 23 U/L (14-36); Bilirubin,Total 0.6 mg/dL (0.2-1.3); Blood Urea Nitrogen 13 mg/dL (7-17); Calcium 9.3 mg/dL (8.4-10.2); Carbon Dioxide 25 mmol/L (22-30); Chloride 102 mmol/L (98-107); Estimated CRCL calculation 64 ml/min; Estimated Glomerular Filt Rate > 60; Glucose 131 mg/dL (65-110); Lactic Acid Reflex 1.2 mmol/L (0.7-2.0); Magnesium 1.8 mg/dL (1.6-2.3); Potassium 3.7 mmol/L (3.4-5.0); Sodium 136 mmol/L (137-145)
[2023-11-26] MEDS: LEVOTHYROXINE SODIUM 50 MCG TABLET PO (06:07)
[2023-11-26] MEDS: SODIUM CHLORIDE 0.9% IV 1,000 ML 100 ML IV CONT ×2 (06:07→17:07)
[2023-11-26 06:33] LABS: D Dimer 0.44 ug/mL (<0.48)
[2023-11-26 06:36] LABS: Glucose Point of Care 133 mg/dl (65-105)
[2023-11-26 06:39] LABS: Procalcitonin 0.1 ng/mL
--- NOTE | 2023-11-26 08:44 | PC.NURSE ---
Patient is requesting a referral to an inspector rough castings at discharge. States she recently received a new medication farxiga and all of my problems started after that. I am not to happy with my primary care right now. Also states that I am no longer taking Lexapro, and I forgot to take that off of my medication list. This RN, ensured that the medication list will be updated. She further states I can't be off of my antidepressants, I suffer from depression related to the of two of my children and the anniversary of my son's is at the end of the month.
[2023-11-26] MEDS: MAGNESIUM OXIDE 200 MG TABLET PO (08:53)
[2023-11-26] MEDS: DOCUSATE SODIUM 100 MG CAPSULE PO ×2 (08:53→20:56)
[2023-11-26] MEDS: ENOXAPARIN 40 MG/0.4 ML SYRINGE SUB-Q (08:53)
[2023-11-26] MEDS: CYANOCOBALAMIN 500 MCG TABLET PO (08:53)
[2023-11-26] MEDS: ATORVASTATIN 10 MG TABLET PO (08:53)
[2023-11-26] MEDS: MEROPENEM 1 GM/NS 100 ML 1 GM/100 ML BAG IVPB ×2 (08:54→21:02)
--- NOTE | 2023-11-26 10:02 | PC.NURSE ---
This patient, Cristi Norwood, was transferred to [324 bed 2 ] on 11/26/23 at 1002. Personal belongings sent with patient. Report given to [kinsey FENTON ]. Appropriate documentation sent with patient.
--- NOTE | 2023-11-26 11:12 | PC.NURSE ---
This patient, Cristi Norwood, was received from IMU on 11/26/23 at 1004. Patient/family oriented to unit policies and routines
[2023-11-26] MEDS: IBUPROFEN 600 MG TABLET PO (11:22)
[2023-11-26 11:36] LABS: Glucose Point of Care 118 mg/dl (65-105)
--- NOTE | 2023-11-26 12:48 | PM.IMPN ---
Progress Note: A&P Assessment and Plan (1) Multiple drug resistant organism (MDRO) culture positive: Code(s): Z16.24 - Resistance to multiple antibiotics Status: Acute Assessment and Plan: urine culture from outside shows MDRO Klebsiella will treat with meropenem CT abdomen pelvis without abscess or obstructive uropathy though right ureter does seem slightly enlarged compared to the left duration of UTI symptoms 3 weeks. Given prolonged symptomatology with resistant findings of sepsis with likely treat for 7-10 days with IV antibiotics. Patient would probably be a good candidate for midline and home infusion set up 11/26/23: Continue Meropenem for abx coverage. CT abd and pelvis indicating cystitis without pyelo. Await repeat Urine cx results and blood cx results. Trend labs and VS. (2) Urinary tract infection: Qualifiers: Hematuria presence: with hematuria Urinary tract infection type: acute cystitis Qualified Code(s): N30.01 - Acute cystitis with hematuria Code(s): N39.0 - Urinary tract infection, site not specified Status: Acute Assessment and Plan: see above (3) Sepsis: Code(s): A41.9 - Sepsis, unspecified organism Status: Acute Assessment and Plan: severe lactic acidosis with lactic acid of 9 initially with resultant metabolic acidosis with decreased bicarb and increased anion gap MDRO UTI present from prior culture ER initially provided IV Zosyn but due to MDRO status, initiated meropenem instead 11/26/23: Lactic acid has resolved. Pt no longer meeting sepsis status. Continuing Meropenem therapy. Awaiting repeat urine cultures and blood cultures. Trend labs and VS. (4) Type 2 diabetes mellitus: Qualifiers: Diabetes mellitus continuous churn buttermaker insulin use: without half-way use Diabetes mellitus complication status: with hyperglycemia Qualified Code(s): E11.65 - Type 2 diabetes mellitus with hyperglycemia Code(s): E11.9 - Type 2 diabetes mellitus without complications Status: Acute Assessment and Plan: hold home a medications especially metformin due to severity of lactic acidosis. Will use fingerstick glucose and sliding scale insulin. beta hydroxybutyrate normal after IV fluids 11/26/23: Good control with fasting glucose in the 130s. Continue to monitor glucose AC and HS. Continue SSI Hypoglycemic protocol Check A1C. Most recent was in 2020. Diabetic diet (5) Metabolic acidosis: Code(s): E87.20 - Acidosis, unspecified Status: Resolved Assessment and Plan: -Severe lactic acidosis with lactic acid of 9 initially with resultant metabolic acidosis with decreased bicarb and increased anion gap. -After 2 L of IV fluids ABG is compensated -anion gap acidosis initially anion gap of 21, down to 17 after 2 L of IV fluids, likely due to severe lactic acidosis which is probably combination anti diabetic medications and sepsis 11/26/23: Now resolved. (6) Hyperlipidemia: Qualifiers: Hyperlipidemia type: mixed hyperlipidemia Qualified Code(s): E78.2 - Mixed hyperlipidemia Code(s): E78.5 - Hyperlipidemia, unspecified Status: Acute Assessment and Plan: continue home medications 11/26/23: Continue statin therapy. (7) Hypothyroidism, unspecified: Qualifiers: Hypothyroidism type: acquired Qualified Code(s): E03.9 - Hypothyroidism, unspecified Code(s): E03.9 - Hypothyroidism, unspecified Status: Chronic Assessment and Plan: 11/26/23: Continue Levothyroxine. (8) Hypertension: Qualifiers: Hypertension type: unspecified Qualified Code(s): I10 - Essential (primary) hypertension Code(s): I10 - Essential (primary) hypertension Status: Chronic Assessment and Plan: normotensive at this time, hold antihypertensives due to sepsis status and resume if blood pressure becomes hypertensive 11/26/23: BPs are running high at times. Restart BP meds ofAmlodipine 10 mg daily Continue to monitor and adjust as needed in the unfolding clinical scenario. (9) Depression: Code(s): F32.9 - Major depressive disorder, single episode, unspecified Status: Chronic Assessment and Plan: hold bupropion and venlafaxine due to hyponatremia sodium 131 normal saline 100 mL/hr after LR boluses 11/26/23: Restart Effexor 225 mg po daily, and wellbutrin 150 po BID Monitor (10) Hyponatremia: Code(s): E87.1 - Hypo-osmolality and hyponatremia Status: Acute Assessment and Plan: Mild hyponatremia with sodium 131 after LR boluses, patient is asymptomatic, normal saline 100 mL/hr and recheck labs in the morning. 11/26/23: Stable with Na of 136. Monitor with daily labs and intervene if necessary. Time Spent With Patient Time with patient: 25 - 35 minutes Subjective Date/time seen: 11/26/23 0845 Interval history: This very pleasant female pt is examined at the bedside after being admitted to the hospital with an MDRO UTI of Klebsiella. She has been started on Meropenem as per culture sensitivities and we are awaiting repeat Urine cultures as well as blood cultures. She states she feels a little weak today but overall she has no other acute complaints or symptoms. VSS and labs stable this AM although they were not upon initial presentation to ER with a Lactic acid of 9. Review of Systems Review of Systems: All systems reviewed & are unremarkable except as noted in HPI and below Exam Narrative: GENERAL: Appears younger than stated age, no acute distress HEAD: Normocephalic, atraumatic. ENT:? Mucous membranes moist. CHEST: Clear to auscultation.? No respiratory distress. subjective dyspnea on exertion HEART: Regular rate and rhythm. ? Normal peripheral pulses. ABDOMEN: Soft, nontender, nondistended. EXTREMITIES: Normal range of motion. No peripheral edema. SKIN: Warm dry normal color NEURO: Alert and oriented x3. PSYCH: Normal mood and affect Objective Data Vital Signs Vital Signs: Vital Signs - 24 hr 11/25/23 13:00 11/25/23 13:17 11/25/23 13:19 Temperature Pulse Rate 97 120 H 107 H Respiratory Rate 11 L 24 H 22 H Blood Pressure 160/73 H Pulse Oximetry 100 100 Oxygen Delivery 11/25/23 13:30 11/25/23 13:31 11/25/23 13:32 Temperature Pulse Rate 98 96 96 Respiratory Rate 20 19 18 Blood Pressure 127/63 Pulse Oximetry 99 100 99 Oxygen Delivery 11/25/23 13:45 11/25/23 13:46 11/25/23 14:00 Temperature Pulse Rate 94 95 95 Respiratory Rate 16 15 15 Blood Pressure 117/66 132/56 L Pulse Oximetry 100 100 100 Oxygen Delivery 11/25/23 14:01 11/25/23 14:19 11/25/23 14:22 Temperature Pulse Rate 93 110 H 102 H Respiratory Rate 17 12 21 H Blood Pressure 150/69 H Pulse Oximetry 100 100 100 Oxygen Delivery 11/25/23 14:30 11/25/23 14:31 11/25/23 16:39 Temperature Pulse Rate 93 92 94 Respiratory Rate 18 14 17 Blood Pressure 138/61 Pulse Oximetry 100 100 100 Oxygen Delivery 11/25/23 16:45 11/25/23 17:00 11/25/23 18:00 Temperature 97.2 F L Pulse Rate 99 99 98 Respiratory Rate 17 14 16 Blood Pressure 128/86 164/70 H Pulse Oximetry 100 99 100 Oxygen Delivery 11/25/23 18:00 11/25/23 20:18 11/25/23 20:00 Temperature 97.2 F L Pulse Rate 101 H 95 95 Respiratory Rate 18 18 Blood Pressure 129/62 Pulse Oximetry 100 100 Oxygen Delivery Room Air 11/25/23 20:00 11/25/23 22:00 11/25/23 23:48 Temperature 97.3 F L Pulse Rate 94 99 99 Respiratory Rate 18 Blood Pressure 133/55 L Pulse Oximetry 96 Oxygen Delivery 11/26/23 00:00 11/26/23 00:00 11/26/23 02:00 Temperature Pulse Rate 99 99 93 Respiratory Rate 18 Blood Pressure Pulse Oximetry 96 Oxygen Delivery Room Air 11/25/23 19:50 11/26/23 03:56 11/26/23 04:00 Temperature 97.2 F L Pulse Rate 89 89 Respiratory Rate 20 20 Blood Pressure 162/69 H Pulse Oximetry 96 100 100 Oxygen Delivery Room Air Room Air 11/26/23 04:00 11/26/23 06:42 11/26/23 08:00 Temperature 98.2 F Pulse Rate 92 93 89 Respiratory Rate 12 Blood Pressure 130/63 Pulse Oximetry 98 Oxygen Delivery 11/26/23 08:00 11/25/23 19:09 Temperature Pulse Rate 94 101 H Respiratory Rate Blood Pressure Pulse Oximetry Oxygen Delivery Intake/Output Intake/Output: Intake & Output 11/23/23 11/24/23 11/25/23 11/26/23 23:59 23:59 23:59 23:59 Intake Total 3300 2046.7 Output Total 950 Balance 3300 1096.7 Meds/Results Medications: Active Medications Generic Name Dose Route Start Last Admin Trade Name Freq PRN Reason Stop Dose Admin Atorvastatin Calcium 10 mg 11/26/23 09:00 11/26/23 08:53 Atorvastatin 10 Mg Tablet PO 10 mg DAILY DEAN Administration Cyanocobalamin 500 mcg 11/26/23 09:00 11/26/23 08:53 Cyanocobalamin 500 Mcg Tablet PO 500 mcg DAILY DEAN Administration Dextrose 12.5 gm 11/25/23 17:51 Dextrose 50% 25 Gm/50 Ml Syringe IV PUSH PRN PRN Hypoglycemia Protocol Docusate Sodium 100 mg 11/26/23 09:00 11/26/23 08:53 Docusate Sodium 100 Mg Capsule PO 100 mg Q12HR DEAN Administration Enoxaparin Sodium 40 mg 11/26/23 09:00 11/26/23 08:53 Enoxaparin 40 Mg/0.4 Ml Syringe SUB-Q 40 mg DAILY DEAN Administration Glucagon 1 mg 11/25/23 17:51 Glucagon For Inj 1 Mg Vial IM PRN PRN Hypoglycemia Protocol Glucose 15 gm 11/25/23 17:51 Glucose Oral Gel 15 Gm Of Glucse In 37.5 Gm Tube PO PRN PRN Hypoglycemia Protocol Meropenem 1 gm in 100 mls @ 200 mls/hr 11/25/23 22:00 11/26/23 09:24 IVPB Infused Q12HR DEAN Infusion Dextrose 1,000 mls @ 100 mls/hr 11/25/23 17:51 Dextrose 5% 1,000 Ml IVPB PRN PRN Hypoglycemia Protocol Sodium Chloride 1,000 mls @ 100 mls/hr 11/25/23 17:55 11/26/23 06:07 Normal Saline Iv IV CONT 100 mls/hr .Q10H DEAN Administration Ibuprofen 600 mg 11/26/23 11:09 11/26/23 11:22 Ibuprofen 600 Mg Tablet PO 600 mg Q6H PRN Administration Mild Pain (1-3) or Headache Insulin Aspart 4 - 8 units 11/26/23 08:00 11/26/23 11:44 Insulin Aspart (*Bkc) 100 Units/Ml SUB-Q Not Given [facility] Protocol Levothyroxine Sodium 50 mcg 11/26/23 06:30 11/26/23 06:07 Levothyroxine Sodium 50 Mcg Tablet PO 50 mcg DAILY@0630 DEAN Administration Magnesium Oxide 200 mg 11/26/23 09:00 11/26/23 08:53 Magnesium Oxide 200 Mg Tablet PO 200 mg DAILY DEAN Administration Polyethylene Glycol 17 gm 11/26/23 08:31 Polyethylene Glycol 3350 17 Gm Powd.Pack PO QAM PRN Constipation Radiology Results: ITS Impressions Abdomen/Pelvis CT 11/25/23 15:16 IMPRESSION: 1. No evidence of appendicitis, diverticulitis or intestinal obstruction. 2. Distended gallbladder with no definite stones. 3. Sliding hiatus hernia. 4. Constipation. 5. Slightly thickened wall of the urinary bladder. Evaluation for cystitis advised. 6. Loss of height of L2 which is most likely chronic. Clinical correlation advised. Chest X-Ray 11/26/23 08:40 IMPRESSION: 1. Mild atelectasis and scarring in the lower lung zones. Labs Labs: Laboratory Results - last 24 hr 11/25/23 11/25/23 11/25/23 12:16 12:57 15:09 WBC RBC Hgb Hct MCV MCH MCHC RDW Plt Count MPV Immature Gran % (Auto) Neut % (Auto) Lymph % (Auto) [place] % (Auto) Eos % (Auto) Baso % (Auto) Lymph # (Auto) [place] # (Auto) Eos # (Auto) Baso # (Auto) Abs Immat Gran (auto) Absolute Neuts (auto) Absolute Nucleated RBC Nucleated RBC % D-Dimer Puncture Site ABG pH ABG pCO2 ABG pO2 ABG PO2/FiO2 Ratio ABG HCO3 ABG O2 Saturation ABG O2 Content ABG Base Excess A-a Gradient Oxyhemoglobin Total Hemoglobin O2 Delivery Device O2 Liters/Min FiO2 Sodium 136 L 131 L Potassium 4.2 4.0 Chloride 98 98 Carbon Dioxide 17 L 16 L Anion Gap 21 H 17 H BUN 15 15 Creatinine 1.10 H 0.90 Estim Creat Clear Calc 47 57 Estimated GFR 48 L > 60 Glucose 170 H 100 POC Capillary Glucose Lactic Acid 5.7 H* Calcium 10.1 9.3 Magnesium Total Bilirubin 0.7 AST 23 ALT 25 Alkaline Phosphatase 78 Total Protein 8.0 Albumin 4.7 Beta-Hydroxybutyrate/Acetoacetate 0.19 Procalcitonin 0.1 Urine Color Urine Appearance Urine pH Ur Specific [place] Urine Protein Urine Glucose (UA) Urine Ketones Ur Blood (Man) Urine Nitrate Urine Bilirubin Urine Urobilinogen Leukocyte Esterase Rfl Urine RBC Urine WBC Ur Squamous Epith Cells Urine Bacteria Urine Casts 11/25/23 11/25/23 11/25/23 16:09 16:20 16:36 WBC RBC Hgb Hct MCV MCH MCHC RDW Plt Count MPV Immature Gran % (Auto) Neut % (Auto) Lymph % (Auto) [place] % (Auto) Eos % (Auto) Baso % (Auto) Lymph # (Auto) [place] # (Auto) Eos # (Auto) Baso # (Auto) Abs Immat Gran (auto) Absolute Neuts (auto) Absolute Nucleated RBC Nucleated RBC % D-Dimer Puncture Site Right radial ABG pH 7.393 ABG pCO2 31.4 L ABG pO2 88.3 ABG PO2/FiO2 Ratio 4.20 ABG HCO3 18.7 L ABG O2 Saturation 96.8 ABG O2 Content 16.8 ABG Base Excess -5.2 A-a Gradient 23.8 Oxyhemoglobin 96.6 Total Hemoglobin 12.3 O2 Delivery Device Not Reportable O2 Liters/Min Not Reportable FiO2 21 Sodium Potassium Chloride Carbon Dioxide Anion Gap BUN Creatinine Estim Creat Clear Calc Estimated GFR Glucose POC Capillary Glucose Lactic Acid 4.3 H* Calcium Magnesium Total Bilirubin AST ALT Alkaline Phosphatase Total Protein Albumin Beta-Hydroxybutyrate/Acetoacetate Procalcitonin Urine Color Yellow Urine Appearance Cloudy H Urine pH 5.5 Ur Specific [place] 1.018 Urine Protein Negative Urine Glucose (UA) Negative Urine Ketones Negative Ur Blood (Man) Non-hemolyzed trace H Urine Nitrate Positive H Urine Bilirubin Negative Urine Urobilinogen 0.2 Leukocyte Esterase Rfl 3+ H Urine RBC 0-2 Urine WBC >100 H Ur Squamous Epith Cells None seen Urine Bacteria 2+ H Urine Casts 3-5 11/25/23 11/25/23 11/26/23 18:16 19:49 04:31 WBC 5.0 RBC 4.07 L Hgb 10.7 L Hct 34.4 L MCV 84.5 MCH 26.3 MCHC 31.1 L RDW 13.4 Plt Count 236 MPV 11.0 H Immature Gran % (Auto) 0.4 Neut % (Auto) 52.7 Lymph % (Auto) 34.5 [place] % (Auto) 9.0 H Eos % (Auto) 2.8 Baso % (Auto) 0.6 Lymph # (Auto) 1.72 [place] # (Auto) 0.5 Eos # (Auto) 0.1 Baso # (Auto) 0.0 Abs Immat Gran (auto) 0.02 Absolute Neuts (auto) 2.6 Absolute Nucleated RBC 0.000 Nucleated RBC % 0.0 D-Dimer 0.44 Puncture Site ABG pH ABG pCO2 ABG pO2 ABG PO2/FiO2 Ratio ABG HCO3 ABG O2 Saturation ABG O2 Content ABG Base Excess A-a Gradient Oxyhemoglobin Total Hemoglobin O2 Delivery Device O2 Liters/Min FiO2 Sodium 136 L Potassium 3.7 Chloride 102 Carbon Dioxide 25 Anion Gap 9 BUN 13 Creatinine 0.80 Estim Creat Clear Calc 64 Estimated GFR > 60 Glucose 131 H POC Capillary Glucose 97 142 H Lactic Acid 1.2 Calcium 9.3 Magnesium 1.8 Total Bilirubin 0.6 AST 23 ALT 16 Alkaline Phosphatase 62 Total Protein 7.0 Albumin 3.8 Beta-Hydroxybutyrate/Acetoacetate Procalcitonin 0.1 Urine Color Urine Appearance Urine pH Ur Specific [place] Urine Protein Urine Glucose (UA) Urine Ketones Ur Blood (Man) Urine Nitrate Urine Bilirubin Urine Urobilinogen Leukocyte Esterase Rfl Urine RBC Urine WBC Ur Squamous Epith Cells Urine Bacteria Urine Casts 11/26/23 11/26/23 06:32 11:33 WBC RBC Hgb Hct MCV MCH MCHC RDW Plt Count MPV Immature Gran % (Auto) Neut % (Auto) Lymph % (Auto) [place] % (Auto) Eos % (Auto) Baso % (Auto) Lymph # (Auto) [place] # (Auto) Eos # (Auto) Baso # (Auto) Abs Immat Gran (auto) Absolute Neuts (auto) Absolute Nucleated RBC Nucleated RBC % D-Dimer Puncture Site ABG pH ABG pCO2 ABG pO2 ABG PO2/FiO2 Ratio ABG HCO3 ABG O2 Saturation ABG O2 Content ABG Base Excess A-a Gradient Oxyhemoglobin Total Hemoglobin O2 Delivery Device O2 Liters/Min FiO2 Sodium Potassium Chloride Carbon Dioxide Anion Gap BUN Creatinine Estim Creat Clear Calc Estimated GFR Glucose POC Capillary Glucose 133 H 118 H Lactic Acid Calcium Magnesium Total Bilirubin AST ALT Alkaline Phosphatase Total Protein Albumin Beta-Hydroxybutyrate/Acetoacetate Procalcitonin Urine Color Urine Appearance Urine pH Ur Specific [place] Urine Protein Urine Glucose (UA) Urine Ketones Ur Blood (Man) Urine Nitrate Urine Bilirubin Urine Urobilinogen Leukocyte Esterase Rfl Urine RBC Urine WBC Ur Squamous Epith Cells Urine Bacteria Urine Casts Quality VTE Prophylaxis VTE prophylaxis: pharmacologic ordered Hospitalist MIPS Advance Care Plan I have confirmed that the patient's Advanced Care Plan is present, code status is documented, or surrogate decision maker is listed in patient medical record.: Yes Medication Reconciliation I have utilized all available resources to obtain, update and review the patients current medications (includes all prescriptions, OTC, herbals, cannabis, and nutritional supplements).: Yes
[2023-11-26 14:16] LABS: Hemoglobin A1C 7.6 % (<5.7)
[2023-11-26 16:45] LABS: Glucose Point of Care 122 mg/dl (65-105)
[2023-11-26] MEDS: buPROPion HCL SR (12 HR) 150 MG TAB PO (17:07)
[2023-11-26 20:21] LABS: Glucose Point of Care 129 mg/dl (65-105)
[2023-11-27] MEDS: SODIUM CHLORIDE 0.9% IV 1,000 ML 100 ML IV CONT ×2 (03:16→16:59)
[2023-11-27 03:23] VITALS: BP 142/63; PULSE 73; RESP 16; TEMP 36.1; O2SAT 99
[2023-11-27] MEDS: LEVOTHYROXINE SODIUM 50 MCG TABLET PO (06:19)
[2023-11-27 07:08] LABS: Red Blood Count 3.93 M/mm3 (4.2-5.4); White Blood Count 3.4 K/mm3 (4.5-10.0)
[2023-11-27 07:09] LABS: Basophils Percent Auto 0.6 % (0.2-1.2); Eosinophils Absolute Auto 0.2 K/mm3 (0-0.3); Eosinophils Percent Auto 6.3 % (0-4.4); Hematocrit 35.5 % (37.0-47.0); Hemoglobin 10.4 g/dL (12.0-15.0); Immature Granulocyte Absolute 0.01 K/mm3 (0.00-0.031); Immature Granulocyte Percent A 0.3 % (0-0.5); Immature Platelet Fraction Pct 3.2 % (0.9-11.2); Lymphocytes Percent Auto 41.8 % (18.3-44.2); Mean Corpuscular HGB Conc 29.3 g/dl (32-36); Mean Corpuscular Hemoglobin 26.5 pg (26-34); Mean Corpuscular Volume 90.3 fl (80-100); Mean Platelet Volume 10.9 fl (7.4-10.4); Monocytes Absolute Auto 0.4 K/mm3 (0.1-0.6); Neutrophils Absolute Auto 1.3 K/mm3 (1.3-6.7); Platelet Count Result 187 k/mm3 (150-375); Red Cell Distribution Width 13.5 % (11.5-14.5)
[2023-11-27 07:12] LABS: Alanine Aminotransferase 15 U/L (6-35); Albumin Level 3.6 g/dL (3.5-5.1); Alkaline Phosphatase 57 U/L (38-126); Anion Gap 8 mmol/L (4-12); Aspartate Amino Transferase 22 U/L (14-36); Bilirubin,Total 0.4 mg/dL (0.2-1.3); Blood Urea Nitrogen 12 mg/dL (7-17); Calcium 8.9 mg/dL (8.4-10.2); Carbon Dioxide 25 mmol/L (22-30); Chloride 106 mmol/L (98-107); Estimated CRCL calculation 72 ml/min; Estimated Glomerular Filt Rate > 60; Glucose 135 mg/dL (65-110); Magnesium 1.9 mg/dL (1.6-2.3); Potassium 4.5 mmol/L (3.4-5.0); Sodium 139 mmol/L (137-145)
[2023-11-27 07:15] LABS: Lactic Acid Reflex 0.8 mmol/L (0.7-2.0)
[2023-11-27 07:27] LABS: Glucose Point of Care 124 mg/dl (65-105)
[2023-11-27 07:29] LABS: Procalcitonin 0.1 ng/mL
[2023-11-27 08:00] VITALS: BP 138/68; PULSE 78; RESP 18; TEMP 36.6; O2SAT 99
[2023-11-27 08:32] LABS: Ovalocytes 1+; Platelet Estimate Adequate (Adequate); Schistocytes None Seen
[2023-11-27] MEDS: CYANOCOBALAMIN 500 MCG TABLET PO (09:01)
[2023-11-27] MEDS: ATORVASTATIN 10 MG TABLET PO (09:01)
[2023-11-27] MEDS: VENLAFAXINE HCL XR 75 MG CAP.ER.24H 225 MG PO (09:01)
[2023-11-27] MEDS: ENOXAPARIN 40 MG/0.4 ML SYRINGE SUB-Q (09:01)
[2023-11-27] MEDS: DOCUSATE SODIUM 100 MG CAPSULE PO ×2 (09:01→20:30)
[2023-11-27] MEDS: amLODIPine BESYLATE 10 MG TABLET PO (09:01)
[2023-11-27] MEDS: buPROPion HCL SR (12 HR) 150 MG TAB PO ×2 (09:01→16:58)
[2023-11-27] MEDS: MAGNESIUM OXIDE 200 MG TABLET PO (09:01)
[2023-11-27] MEDS: MEROPENEM 1 GM/NS 100 ML 1 GM/100 ML BAG IVPB ×2 (09:04→20:35)
[2023-11-27 11:45] LABS: Glucose Point of Care 134 mg/dl (65-105)
[2023-11-27 12:00] VITALS: BP 132/70; PULSE 69; RESP 18; TEMP 36.7; O2SAT 99
[2023-11-27 16:56] LABS: Glucose Point of Care 123 mg/dl (65-105)
--- NOTE | 2023-11-27 19:02 | P.PNIM_ITS ---
Progress Note: A&P Assessment and Plan (1) Multiple drug resistant organism (MDRO) culture positive: Code(s): Z16.24 - Resistance to multiple antibiotics Status: Acute Assessment and Plan: urine culture from outside shows MDRO Klebsiella, continue treatment with meropenem CT abdomen pelvis without abscess or obstructive uropathy though right ureter does seem slightly enlarged compared to the left duration of UTI symptoms 3 weeks. Given prolonged symptomatology with resistant findings of sepsis with likely treat for 7-10 days with IV antibiotics. - Patient would probably be a good candidate for midline and home infusion set up 11/27/23: * Continue Meropenem for abx coverage. * CT abd and pelvis indicating cystitis without pyelo. * Await repeat Urine cx results and blood cx results. * Continue to trend labs and VS. (2) Urinary tract infection: Qualifiers: Hematuria presence: with hematuria Urinary tract infection type: acute cystitis Qualified Code(s): N30.01 - Acute cystitis with hematuria Code(s): N39.0 - Urinary tract infection, site not specified Status: Acute Assessment and Plan: see above (3) Sepsis: Code(s): A41.9 - Sepsis, unspecified organism Status: Acute Assessment and Plan: severe lactic acidosis with lactic acid of 9 initially with resultant metabolic acidosis with decreased bicarb and increased anion gap MDRO UTI present from prior culture ER initially provided IV Zosyn but due to MDRO status, initiated meropenem instead 11/27/23: * Lactic acidosis resolved. * Pt no longer meeting sepsis status. * Continuing Meropenem therapy. * Awaiting repeat urine cultures and blood cultures. * Trend labs and VS. (4) Leukopenia: Code(s): D72.819 - Decreased white blood cell count, unspecified Status: Acute Assessment and Plan: - Possibly related to UTI. - Continue to trend with IV abx. 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 Will use fingerstick glucose and sliding scale insulin. beta hydroxybutyrate normal after IV fluids 11/27/23: * Good control with fasting glucose in the 130s. * Continue to monitor glucose AC and HS. * Continue SSI * Hypoglycemic protocol * A1C 5.4. * Diabetic diet (6) Metabolic acidosis: Code(s): E87.20 - Acidosis, unspecified Status: Resolved Assessment and Plan: -Severe lactic acidosis with lactic acid of 9 initially with resultant metabolic acidosis with decreased bicarb and increased anion gap. -After 2 L of IV fluids ABG is compensated -anion gap acidosis initially anion gap of 21, down to 17 after 2 L of IV fluids, likely due to severe lactic acidosis which is probably combination anti diabetic medications and sepsis 11/27/23: * Now resolved. (7) Hyperlipidemia: Qualifiers: Hyperlipidemia type: mixed hyperlipidemia Qualified Code(s): E78.2 - Mixed hyperlipidemia Code(s): E78.5 - Hyperlipidemia, unspecified Status: Acute Assessment and Plan: continue home medications 11/26/23: * Continue statin therapy. (8) Hypothyroidism, unspecified: Qualifiers: Hypothyroidism type: acquired Qualified Code(s): E03.9 - Hypothyroidism, unspecified Code(s): E03.9 - Hypothyroidism, unspecified Status: Chronic Assessment and Plan: 11/26/23: * Continue Levothyroxine. (9) Hypertension: Qualifiers: Hypertension type: unspecified Qualified Code(s): I10 - Essential (primary) hypertension Code(s): I10 - Essential (primary) hypertension Status: Chronic Assessment and Plan: normotensive at this time, hold antihypertensives due to sepsis status and resume if blood pressure becomes hypertensive 11/27/23: * BPs well controlled for now. * Continue Amlodipine 10 mg daily. * Continue to monitor and adjust meds as needed. (10) Depression: Code(s): F32.9 - Major depressive disorder, single episode, unspecified Status: Chronic Assessment and Plan: hold bupropion and venlafaxine due to hyponatremia sodium 131 normal saline 100 mL/hr after LR boluses 11/27/23: * Continue Effexor 225 mg po daily, and wellbutrin 150 po BID * Monitor (11) Hyponatremia: Code(s): E87.1 - Hypo-osmolality and hyponatremia Status: Acute Assessment and Plan: Resolved. * Monitor closely. Time Spent With Patient Time with patient: 25 - 35 minutes Subjective Date/time seen: 11/27/23 11:02 Interval history: Very pleasant female pt who was admitted to the hospital with an MDRO UTI of Klebsiella. Patient on Meropenem as per culture sensitivities. Blood cultures NGTD and urine culture growing MDR Klebs pneumoniae. Patient states she's currently feeling well with no distressful symptoms. Review of Systems Review of Systems: All systems reviewed & are unremarkable except as noted in HPI and below Exam Narrative: GENERAL: Appears younger than stated age, no acute distress HEAD: Normocephalic, atraumatic. ENT:? Mucous membranes moist. CHEST: Clear to auscultation.? No respiratory distress. subjective dyspnea on exertion HEART: Regular rate and rhythm. ? Normal peripheral pulses. ABDOMEN: Soft, nontender, nondistended. EXTREMITIES: Normal range of motion. No peripheral edema. SKIN: Warm dry normal color NEURO: Alert and oriented x3. PSYCH: Normal mood and affect Objective Data Vital Signs Vital Signs: Vital Signs - 24 hr 11/26/23 20:00 11/26/23 20:30 11/26/23 23:53 Temperature 97.2 F L 97.6 F Pulse Rate 84 84 78 Respiratory Rate 17 17 18 Blood Pressure 139/68 149/69 H Pulse Oximetry 96 96 99 Oxygen Delivery Room Air 11/27/23 03:23 11/27/23 08:00 11/27/23 12:00 Temperature 97.0 F L 98 F 98.0 F Pulse Rate 73 78 69 Respiratory Rate 16 18 18 Blood Pressure 142/63 H 138/68 132/70 Pulse Oximetry 99 99 99 Oxygen Delivery Intake/Output Intake/Output: Intake & Output 11/24/23 11/25/23 11/26/23 11/27/23 23:59 23:59 23:59 23:59 Intake Total 3300 4056.7 3320 Output Total 1250 800 Balance 3300 2806.7 2520 Meds/Results Medications: Active Medications Generic Name Dose Route Start Last Admin Trade Name Freq PRN Reason Stop Dose Admin Amlodipine Besylate 10 mg 11/27/23 09:00 11/27/23 09:01 Amlodipine Besylate 10 Mg Tablet PO 10 mg DAILY DEAN Administration Atorvastatin Calcium 10 mg 11/26/23 09:00 11/27/23 09:01 Atorvastatin 10 Mg Tablet PO 10 mg DAILY DEAN Administration Bupropion HCl 150 mg 11/26/23 17:00 11/27/23 16:58 Bupropion Hcl Sr (12 Hr) 150 Mg Tab PO 150 mg BID DEAN Administration Cyanocobalamin 500 mcg 11/26/23 09:00 11/27/23 09:01 Cyanocobalamin 500 Mcg Tablet PO 500 mcg DAILY DEAN Administration Dextrose 12.5 gm 11/25/23 17:51 Dextrose 50% 25 Gm/50 Ml Syringe IV PUSH PRN PRN Hypoglycemia Protocol Docusate Sodium 100 mg 11/26/23 09:00 11/27/23 09:01 Docusate Sodium 100 Mg Capsule PO 100 mg Q12HR DEAN Administration Enoxaparin Sodium 40 mg 11/26/23 09:00 11/27/23 09:01 Enoxaparin 40 Mg/0.4 Ml Syringe SUB-Q 40 mg DAILY DEAN Administration Glucagon 1 mg 11/25/23 17:51 Glucagon For Inj 1 Mg Vial IM PRN PRN Hypoglycemia Protocol Glucose 15 gm 11/25/23 17:51 Glucose Oral Gel 15 Gm Of Glucse In 37.5 Gm Tube PO PRN PRN Hypoglycemia Protocol Meropenem 1 gm in 100 mls @ 200 mls/hr 11/25/23 22:00 11/27/23 09:04 IVPB 11/29/23 21:29 200 mls/hr Q12HR DEAN Administration Dextrose 1,000 mls @ 100 mls/hr 11/25/23 17:51 Dextrose 5% 1,000 Ml IVPB PRN PRN Hypoglycemia Protocol Sodium Chloride 1,000 mls @ 100 mls/hr 11/25/23 17:55 11/27/23 16:59 Normal Saline Iv IV CONT 100 mls/hr .Q10H DEAN Administration Ibuprofen 600 mg 11/26/23 11:09 11/26/23 11:22 Ibuprofen 600 Mg Tablet PO 600 mg Q6H PRN Administration Mild Pain (1-3) or Headache Insulin Aspart 4 - 8 units 11/26/23 08:00 11/27/23 17:00 Insulin Aspart (*Bkc) 100 Units/Ml SUB-Q Not Given TIDWM DEAN Protocol Levothyroxine Sodium 50 mcg 11/26/23 06:30 11/27/23 06:19 Levothyroxine Sodium 50 Mcg Tablet PO 50 mcg DAILY@0630 DEAN Administration Magnesium Oxide 200 mg 11/26/23 09:00 11/27/23 09:01 Magnesium Oxide 200 Mg Tablet PO 200 mg DAILY DEAN Administration Polyethylene Glycol 17 gm 11/26/23 08:31 Polyethylene Glycol 3350 17 Gm Powd.Pack PO QAM PRN Constipation Venlafaxine HCl 225 mg 11/27/23 09:00 11/27/23 09:01 Venlafaxine Hcl Xr 75 Mg Cap.Er.24h PO 225 mg DAILY DEAN Administration Radiology Results: ITS Impressions Abdomen/Pelvis CT 11/25/23 15:16 IMPRESSION: 1. No evidence of appendicitis, diverticulitis or intestinal obstruction. 2. Distended gallbladder with no definite stones. 3. Sliding hiatus hernia. 4. Constipation. 5. Slightly thickened wall of the urinary bladder. Evaluation for cystitis advised. 6. Loss of height of L2 which is most likely chronic. Clinical correlation advised. Chest X-Ray 11/26/23 08:40 IMPRESSION: 1. Mild atelectasis and scarring in the lower lung zones. Labs Labs: Laboratory Results - last 24 hr 11/26/23 11/27/23 11/27/23 20:18 06:27 07:12 WBC 3.4 L RBC 3.93 L Hgb 10.4 L Hct 35.5 L MCV 90.3 D MCH 26.5 MCHC 29.3 L RDW 13.5 Plt Count 187 MPV 10.9 H Immature Gran % (Auto) 0.3 Neut % (Auto) 40.0 L Lymph % (Auto) 41.8 [place] % (Auto) 11.0 H Eos % (Auto) 6.3 H Baso % (Auto) 0.6 Lymph # (Auto) 1.40 [place] # (Auto) 0.4 Eos # (Auto) 0.2 Baso # (Auto) 0.0 Abs Immat Gran (auto) 0.01 Absolute Neuts (auto) 1.3 Absolute Nucleated RBC 0.000 Nucleated RBC % 0.0 Platelet Estimate Adequate % Immature Plt Fraction 3.2 Ovalocytes 1+ Schistocytes None seen Sodium 139 Potassium 4.5 Chloride 106 Carbon Dioxide 25 Anion Gap 8 BUN 12 Creatinine 0.70 Estim Creat Clear Calc 72 Estimated GFR > 60 Glucose 135 H POC Capillary Glucose 129 H 124 H Lactic Acid 0.8 Calcium 8.9 Magnesium 1.9 Total Bilirubin 0.4 AST 22 ALT 15 Alkaline Phosphatase 57 Total Protein 6.0 L Albumin 3.6 Procalcitonin 0.1 11/27/23 11/27/23 11:29 16:52 WBC RBC Hgb Hct MCV MCH MCHC RDW Plt Count MPV Immature Gran % (Auto) Neut % (Auto) Lymph % (Auto) [place] % (Auto) Eos % (Auto) Baso % (Auto) Lymph # (Auto) [place] # (Auto) Eos # (Auto) Baso # (Auto) Abs Immat Gran (auto) Absolute Neuts (auto) Absolute Nucleated RBC Nucleated RBC % Platelet Estimate % Immature Plt Fraction Ovalocytes Schistocytes Sodium Potassium Chloride Carbon Dioxide Anion Gap BUN Creatinine Estim Creat Clear Calc Estimated GFR Glucose POC Capillary Glucose 134 H 123 H Lactic Acid Calcium Magnesium Total Bilirubin AST ALT Alkaline Phosphatase Total Protein Albumin Procalcitonin Quality VTE Prophylaxis VTE prophylaxis: pharmacologic ordered Hospitalist MIPS Medication Reconciliation The patient is not eligible for med reconciliation; the patient is in a emergent medical situation where delaying treatment would jeopardize the patients health.: Yes
[2023-11-27 20:00] VITALS: BP 143/77; PULSE 82; RESP 14; TEMP 37; O2SAT 95
[2023-11-27] MEDS: IBUPROFEN 600 MG TABLET PO (20:30)
[2023-11-27 20:43] LABS: Glucose Point of Care 140 mg/dl (65-105)
[2023-11-28] MEDS: SODIUM CHLORIDE 0.9% IV 1,000 ML 100 ML IV CONT (05:16)
[2023-11-28] MEDS: LEVOTHYROXINE SODIUM 50 MCG TABLET PO (05:23)
[2023-11-28 05:42] VITALS: BP 145/76; PULSE 78; RESP 18; TEMP 37.1; O2SAT 99
[2023-11-28 06:37] LABS: Basophils Percent Auto 0.6 % (0.2-1.2); Eosinophils Absolute Auto 0.2 K/mm3 (0-0.3); Eosinophils Percent Auto 5.4 % (0-4.4); Hematocrit 33.6 % (37.0-47.0); Hemoglobin 10.6 g/dL (12.0-15.0); Immature Granulocyte Absolute 0.01 K/mm3 (0.00-0.031); Immature Granulocyte Percent A 0.3 % (0-0.5); Lymphocytes Absolute Auto 1.32 K/mm3 (0.9-3.2); Lymphocytes Percent Auto 41.6 % (18.3-44.2); Mean Corpuscular HGB Conc 31.5 g/dl (32-36); Mean Corpuscular Volume 85.7 fl (80-100); Mean Platelet Volume 10.4 fl (7.4-10.4); Monocytes Absolute Auto 0.4 K/mm3 (0.1-0.6); Neutrophils Absolute Auto 1.3 K/mm3 (1.3-6.7); Neutrophils Percent Auto 41.1 % (45.5-73.1); Platelet Count Result 195 k/mm3 (150-375); Red Blood Count 3.92 M/mm3 (4.2-5.4); Red Cell Distribution Width 13.6 % (11.5-14.5); White Blood Count 3.2 K/mm3 (4.5-10.0)
[2023-11-28 06:50] LABS: Alanine Aminotransferase 16 U/L (6-35); Albumin Level 3.5 g/dL (3.5-5.1); Alkaline Phosphatase 60 U/L (38-126); Anion Gap 8 mmol/L (4-12); Aspartate Amino Transferase 23 U/L (14-36); Bilirubin,Total 0.4 mg/dL (0.2-1.3); Blood Urea Nitrogen 9 mg/dL (7-17); Calcium 9.1 mg/dL (8.4-10.2); Carbon Dioxide 24 mmol/L (22-30); Chloride 105 mmol/L (98-107); Estimated CRCL calculation 73 ml/min; Estimated Glomerular Filt Rate > 60; Glucose 133 mg/dL (65-110); Magnesium 1.9 mg/dL (1.6-2.3); Potassium 3.8 mmol/L (3.4-5.0); Sodium 137 mmol/L (137-145)
[2023-11-28 07:07] LABS: Procalcitonin 0.1 ng/mL
[2023-11-28 08:25] LABS: Glucose Point of Care 136 mg/dl (65-105)
[2023-11-28] MEDS: ATORVASTATIN 10 MG TABLET PO (08:48)
[2023-11-28] MEDS: CYANOCOBALAMIN 500 MCG TABLET PO (08:48)
[2023-11-28] MEDS: VENLAFAXINE HCL XR 75 MG CAP.ER.24H 225 MG PO (08:48)
[2023-11-28] MEDS: DOCUSATE SODIUM 100 MG CAPSULE PO ×2 (08:48→21:56)
[2023-11-28] MEDS: amLODIPine BESYLATE 10 MG TABLET PO (08:48)
[2023-11-28] MEDS: buPROPion HCL SR (12 HR) 150 MG TAB PO ×2 (08:48→16:01)
[2023-11-28] MEDS: MEROPENEM 1 GM/NS 100 ML 1 GM/100 ML BAG IVPB ×2 (08:49→21:56)
[2023-11-28] MEDS: MAGNESIUM OXIDE 200 MG TABLET PO (08:49)
[2023-11-28] MEDS: ENOXAPARIN 40 MG/0.4 ML SYRINGE SUB-Q (08:49)
[2023-11-28 11:43] LABS: Glucose Point of Care 122 mg/dl (65-105)
--- NOTE | 2023-11-28 11:51 | P.PNIM_ITS ---
Progress Note: A&P Assessment and Plan (1) Multiple drug resistant organism (MDRO) culture positive: Code(s): Z16.24 - Resistance to multiple antibiotics Status: Acute Assessment and Plan: urine culture from outside shows MDRO Klebsiella, continue treatment with meropenem CT abdomen pelvis without abscess or obstructive uropathy though right ureter does seem slightly enlarged compared to the left duration of UTI symptoms 3 weeks. Given prolonged symptomatology with resistant findings of sepsis with likely treat for 7-10 days with IV antibiotics. - Patient would probably be a good candidate for midline and home infusion set up 11/27/23: * Continue Meropenem for abx coverage. * CT abd and pelvis indicating cystitis without pyelo. * Await repeat Urine cx results and blood cx results. * Continue to trend labs and VS. * 11/28/23: - Continue Meropenem for now. - We'll discuss with case mgt if patient could complete abx therapy at home. - Appears to be stabilizing well. (2) Urinary tract infection: Qualifiers: Hematuria presence: with hematuria Urinary tract infection type: acute cystitis Qualified Code(s): N30.01 - Acute cystitis with hematuria Code(s): N39.0 - Urinary tract infection, site not specified Status: Acute Assessment and Plan: see above (3) Sepsis: Code(s): A41.9 - Sepsis, unspecified organism Status: Acute Assessment and Plan: severe lactic acidosis with lactic acid of 9 initially with resultant metabolic acidosis with decreased bicarb and increased anion gap MDRO UTI present from prior culture ER initially provided IV Zosyn but due to MDRO status, initiated meropenem instead 11/27/23: * Lactic acidosis resolved. * Pt no longer meeting sepsis status. * Continuing Meropenem therapy. * Awaiting repeat urine cultures and blood cultures. * Trend labs and VS. * 11/28/23: - Resolved. (4) Leukopenia: Code(s): D72.819 - Decreased white blood cell count, unspecified Status: Acute Assessment and Plan: - Possibly related to UTI. - Continue to trend with IV abx. 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 Will use fingerstick glucose and sliding scale insulin. beta hydroxybutyrate normal after IV fluids 11/27/23: * Good control with fasting glucose in the 130s. * Continue to monitor glucose AC and HS. * Continue SSI * Hypoglycemic protocol * A1C 5.4. * Diabetic diet * 11/28/23: - Remains stable. - Continue current therapy. (6) Metabolic acidosis: Code(s): E87.20 - Acidosis, unspecified Status: Resolved Assessment and Plan: -Severe lactic acidosis with lactic acid of 9 initially with resultant metabolic acidosis with decreased bicarb and increased anion gap. -After 2 L of IV fluids ABG is compensated -anion gap acidosis initially anion gap of 21, down to 17 after 2 L of IV fluids, likely due to severe lactic acidosis which is probably combination anti diabetic medications and sepsis 11/27/23: * Now resolved. (7) Hyperlipidemia: Qualifiers: Hyperlipidemia type: mixed hyperlipidemia Qualified Code(s): E78.2 - Mixed hyperlipidemia Code(s): E78.5 - Hyperlipidemia, unspecified Status: Acute Assessment and Plan: continue home medications 11/26/23: * Continue statin therapy. * 11/28/23: - Continue statin. (8) Hypothyroidism, unspecified: Qualifiers: Hypothyroidism type: acquired Qualified Code(s): E03.9 - Hypothyroidism, unspecified Code(s): E03.9 - Hypothyroidism, unspecified Status: Chronic Assessment and Plan: 11/26/23: * Continue Levothyroxine. * 11/28/23: - Continue levothyroxine. (9) Hypertension: Qualifiers: Hypertension type: unspecified Qualified Code(s): I10 - Essential (primary) hypertension Code(s): I10 - Essential (primary) hypertension Status: Chronic Assessment and Plan: normotensive at this time, hold antihypertensives due to sepsis status and resume if blood pressure becomes hypertensive 11/27/23: * BPs well controlled for now. * Continue Amlodipine 10 mg daily. * Continue to monitor and adjust meds as needed. * 11/28/23: - Remains well controlled. - Continue current BP meds. (10) Depression: Code(s): F32.9 - Major depressive disorder, single episode, unspecified Status: Chronic Assessment and Plan: hold bupropion and venlafaxine due to hyponatremia sodium 131 normal saline 100 mL/hr after LR boluses 11/27/23: * Continue Effexor 225 mg po daily, and wellbutrin 150 po BID * Monitor * 11/28/23: - Stable. - Continue Effexor and Wellbutrin. (11) Hyponatremia: Code(s): E87.1 - Hypo-osmolality and hyponatremia Status: Acute Assessment and Plan: Resolved. * Monitor closely. Time Spent With Patient Time with patient: 15 - 25 minutes Subjective Date/time seen: 11/28/23 10:51 Interval history: Very pleasant female pt who was admitted to the hospital with an MDRO UTI of Klebsiella. Patient on Meropenem as per culture sensitivities. Blood cultures NGTD and urine culture growing MDRO Klebs pneumoniae. Patient reports improvement in symptoms with urine clearing out as opposed to previous dark urine. Review of Systems Review of Systems: All systems reviewed & are unremarkable except as noted in HPI and below Exam Narrative: GENERAL: Appears younger than stated age, no acute distress HEAD: Normocephalic, atraumatic. ENT:? Mucous membranes moist. CHEST: Clear to auscultation.? No respiratory distress. subjective dyspnea on exertion HEART: Regular rate and rhythm. ? Normal peripheral pulses. ABDOMEN: Soft, nontender, nondistended. EXTREMITIES: Normal range of motion. No peripheral edema. SKIN: Warm dry normal color NEURO: Alert and oriented x3. PSYCH: Normal mood and affect Objective Data Vital Signs Vital Signs: Vital Signs - 24 hr 11/27/23 12:00 11/27/23 20:00 11/28/23 05:42 Temperature 98.0 F 98.6 F 98.7 F Pulse Rate 69 82 78 Respiratory Rate 18 14 18 Blood Pressure 132/70 143/77 H 145/76 H Pulse Oximetry 99 95 99 Oxygen Delivery 11/28/23 08:00 Temperature Pulse Rate Respiratory Rate Blood Pressure Pulse Oximetry Oxygen Delivery Room Air Intake/Output Intake/Output: Intake & Output 11/25/23 11/26/23 11/27/23 11/28/23 23:59 23:59 23:59 23:59 Intake Total 3300 4056.7 3520 1615 Output Total 3027 110 9321 Balance 3300 2806.7 2720 490 Meds/Results Medications: Active Medications Generic Name Dose Route Start Last Admin Trade Name Freq PRN Reason Stop Dose Admin Amlodipine Besylate 10 mg 11/27/23 09:00 11/28/23 08:48 Amlodipine Besylate 10 Mg Tablet PO 10 mg DAILY DEAN Administration Atorvastatin Calcium 10 mg 11/26/23 09:00 11/28/23 08:48 Atorvastatin 10 Mg Tablet PO 10 mg DAILY DEAN Administration Bupropion HCl 150 mg 11/26/23 17:00 11/28/23 08:48 Bupropion Hcl Sr (12 Hr) 150 Mg Tab PO 150 mg BID DEAN Administration Cyanocobalamin 500 mcg 11/26/23 09:00 11/28/23 08:48 Cyanocobalamin 500 Mcg Tablet PO 500 mcg DAILY DEAN Administration Dextrose 12.5 gm 11/25/23 17:51 Dextrose 50% 25 Gm/50 Ml Syringe IV PUSH PRN PRN Hypoglycemia Protocol Docusate Sodium 100 mg 11/26/23 09:00 11/28/23 08:48 Docusate Sodium 100 Mg Capsule PO 100 mg Q12HR DEAN Administration Enoxaparin Sodium 40 mg 11/26/23 09:00 11/28/23 08:49 Enoxaparin 40 Mg/0.4 Ml Syringe SUB-Q 40 mg DAILY DEAN Administration Glucagon 1 mg 11/25/23 17:51 Glucagon For Inj 1 Mg Vial IM PRN PRN Hypoglycemia Protocol Glucose 15 gm 11/25/23 17:51 Glucose Oral Gel 15 Gm Of Glucse In 37.5 Gm Tube PO PRN PRN Hypoglycemia Protocol Meropenem 1 gm in 100 mls @ 200 mls/hr 11/25/23 22:00 11/28/23 08:49 IVPB 11/29/23 21:29 200 mls/hr Q12HR DEAN Administration Dextrose 1,000 mls @ 100 mls/hr 11/25/23 17:51 Dextrose 5% 1,000 Ml IVPB PRN PRN Hypoglycemia Protocol Sodium Chloride 1,000 mls @ 100 mls/hr 11/25/23 17:55 11/28/23 05:16 Normal Saline Iv IV CONT 100 mls/hr .Q10H DEAN Administration Ibuprofen 600 mg 11/26/23 11:09 11/27/23 20:30 Ibuprofen 600 Mg Tablet PO 600 mg Q6H PRN Administration Mild Pain (1-3) or Headache Insulin Aspart 4 - 8 units 11/26/23 08:00 11/27/23 17:00 Insulin Aspart (*Bkc) 100 Units/Ml SUB-Q Not Given TIDWM [facility] Protocol Levothyroxine Sodium 50 mcg 11/26/23 06:30 11/28/23 05:23 Levothyroxine Sodium 50 Mcg Tablet PO 50 mcg DAILY@0630 DEAN Administration Magnesium Oxide 200 mg 11/26/23 09:00 11/28/23 08:49 Magnesium Oxide 200 Mg Tablet PO 200 mg DAILY DEAN Administration Polyethylene Glycol 17 gm 11/26/23 08:31 Polyethylene Glycol 3350 17 Gm Powd.Pack PO QAM PRN Constipation Venlafaxine HCl 225 mg 11/27/23 09:00 11/28/23 08:48 Venlafaxine Hcl Xr 75 Mg Cap.Er.24h PO 225 mg DAILY DEAN Administration Radiology Results: ITS Impressions Abdomen/Pelvis CT 11/25/23 15:16 IMPRESSION: 1. No evidence of appendicitis, diverticulitis or intestinal obstruction. 2. Distended gallbladder with no definite stones. 3. Sliding hiatus hernia. 4. Constipation. 5. Slightly thickened wall of the urinary bladder. Evaluation for cystitis advised. 6. Loss of height of L2 which is most likely chronic. Clinical correlation advised. Chest X-Ray 11/26/23 08:40 IMPRESSION: 1. Mild atelectasis and scarring in the lower lung zones. Labs Labs: Laboratory Results - last 24 hr 11/27/23 11/27/23 11/28/23 16:52 20:01 05:59 WBC 3.2 L RBC 3.92 L Hgb 10.6 L Hct 33.6 L MCV 85.7 D MCH 27.0 MCHC 31.5 L RDW 13.6 Plt Count 195 MPV 10.4 Immature Gran % (Auto) 0.3 Neut % (Auto) 41.1 L Lymph % (Auto) 41.6 [place] % (Auto) 11.0 H Eos % (Auto) 5.4 H Baso % (Auto) 0.6 Lymph # (Auto) 1.32 [place] # (Auto) 0.4 Eos # (Auto) 0.2 Baso # (Auto) 0.0 Abs Immat Gran (auto) 0.01 Absolute Neuts (auto) 1.3 Absolute Nucleated RBC 0.000 Nucleated RBC % 0.0 Sodium 137 Potassium 3.8 Chloride 105 Carbon Dioxide 24 Anion Gap 8 BUN 9 Creatinine 0.70 Estim Creat Clear Calc 73 Estimated GFR > 60 Glucose 133 H POC Capillary Glucose 123 H 140 H Calcium 9.1 Magnesium 1.9 Total Bilirubin 0.4 AST 23 ALT 16 Alkaline Phosphatase 60 Total Protein 6.0 L Albumin 3.5 Procalcitonin 0.1 11/28/23 11/28/23 08:21 11:30 WBC RBC Hgb Hct MCV MCH MCHC RDW Plt Count MPV Immature Gran % (Auto) Neut % (Auto) Lymph % (Auto) [place] % (Auto) Eos % (Auto) Baso % (Auto) Lymph # (Auto) [place] # (Auto) Eos # (Auto) Baso # (Auto) Abs Immat Gran (auto) Absolute Neuts (auto) Absolute Nucleated RBC Nucleated RBC % Sodium Potassium Chloride Carbon Dioxide Anion Gap BUN Creatinine Estim Creat Clear Calc Estimated GFR Glucose POC Capillary Glucose 136 H 122 H Calcium Magnesium Total Bilirubin AST ALT Alkaline Phosphatase Total Protein Albumin Procalcitonin Quality VTE Prophylaxis VTE prophylaxis: pharmacologic ordered Hospitalist [facility] Advance Care Plan I have confirmed that the patient's Advanced Care Plan is present, code status is documented, or surrogate decision maker is listed in patient medical record.: Yes Medication Reconciliation I have utilized all available resources to obtain, update and review the patients current medications (includes all prescriptions, OTC, herbals, cannabis, and nutritional supplements).: Yes
[2023-11-28 14:53] VITALS: BP 141/72; PULSE 84; RESP 16; TEMP 36.7; O2SAT 98
[2023-11-28 17:01] LABS: Glucose Point of Care 127 mg/dl (65-105)
[2023-11-28 20:00] VITALS: O2SAT 98
[2023-11-28 21:21] LABS: Glucose Point of Care 145 mg/dl (65-105)
[2023-11-28 22:00] VITALS: BP 150/74; PULSE 81; RESP 20; TEMP 36.9; O2SAT 99
[2023-11-29] MEDS: SODIUM CHLORIDE 0.9% IV 1,000 ML 100 ML IV CONT (02:43)
[2023-11-29 05:53] LABS: Basophils Percent Auto 0.5 % (0.2-1.2); Eosinophils Absolute Auto 0.2 K/mm3 (0-0.3); Eosinophils Percent Auto 5.2 % (0-4.4); Hemoglobin 10.9 g/dL (12.0-15.0); Immature Granulocyte Absolute 0.02 K/mm3 (0.00-0.031); Immature Granulocyte Percent A 0.5 % (0-0.5); Lymphocytes Absolute Auto 1.32 K/mm3 (0.9-3.2); Lymphocytes Percent Auto 34.1 % (18.3-44.2); Mean Corpuscular HGB Conc 31.1 g/dl (32-36); Mean Corpuscular Hemoglobin 26.7 pg (26-34); Mean Corpuscular Volume 85.6 fl (80-100); Mean Platelet Volume 10.6 fl (7.4-10.4); Monocytes Absolute Auto 0.4 K/mm3 (0.1-0.6); Monocytes Percent Auto 9.8 % (2.6-8.5); Neutrophils Absolute Auto 1.9 K/mm3 (1.3-6.7); Neutrophils Percent Auto 49.9 % (45.5-73.1); Platelet Count Result 199 k/mm3 (150-375); Red Blood Count 4.09 M/mm3 (4.2-5.4); Red Cell Distribution Width 13.5 % (11.5-14.5); White Blood Count 3.9 K/mm3 (4.5-10.0)
[2023-11-29 06:00] VITALS: BP 154/74; PULSE 78; RESP 16; TEMP 36.1; O2SAT 99
[2023-11-29 06:03] LABS: Alanine Aminotransferase 19 U/L (6-35); Albumin Level 3.6 g/dL (3.5-5.1); Alkaline Phosphatase 53 U/L (38-126); Anion Gap 10 mmol/L (4-12); Aspartate Amino Transferase 26 U/L (14-36); Bilirubin,Total 0.5 mg/dL (0.2-1.3); Blood Urea Nitrogen 13 mg/dL (7-17); Calcium 8.8 mg/dL (8.4-10.2); Carbon Dioxide 24 mmol/L (22-30); Chloride 103 mmol/L (98-107); Estimated CRCL calculation 73 ml/min; Estimated Glomerular Filt Rate > 60; Glucose 134 mg/dL (65-110); Magnesium 1.9 mg/dL (1.6-2.3); Potassium 3.7 mmol/L (3.4-5.0); Sodium 137 mmol/L (137-145)
[2023-11-29] MEDS: LEVOTHYROXINE SODIUM 50 MCG TABLET PO (06:05)
[2023-11-29] MEDS: MEROPENEM 1 GM/NS 100 ML 1 GM/100 ML BAG IVPB ×3 (06:05→21:19)
[2023-11-29 07:57] LABS: Glucose Point of Care 137 mg/dl (65-105)
[2023-11-29] MEDS: buPROPion HCL SR (12 HR) 150 MG TAB PO ×2 (09:49→18:25)
[2023-11-29] MEDS: MAGNESIUM OXIDE 200 MG TABLET PO (09:49)
[2023-11-29] MEDS: CYANOCOBALAMIN 500 MCG TABLET PO (09:49)
[2023-11-29] MEDS: DOCUSATE SODIUM 100 MG CAPSULE PO ×2 (09:49→21:19)
[2023-11-29] MEDS: ATORVASTATIN 10 MG TABLET PO (09:49)
[2023-11-29] MEDS: VENLAFAXINE HCL XR 75 MG CAP.ER.24H 225 MG PO (09:49)
[2023-11-29] MEDS: ENOXAPARIN 40 MG/0.4 ML SYRINGE SUB-Q (09:50)
[2023-11-29] MEDS: amLODIPine BESYLATE 10 MG TABLET PO (09:50)
[2023-11-29] MEDS: IBUPROFEN 600 MG TABLET PO (09:53)
[2023-11-29] MEDS: polyethylene glycoL 3350 17 GM POWD.PACK PO (09:54)
[2023-11-29 12:05] LABS: Glucose Point of Care 125 mg/dl (65-105)
[2023-11-29 14:00] VITALS: BP 148/75; PULSE 85; RESP 16; TEMP 36.3; O2SAT 99
--- NOTE | 2023-11-29 15:11 | P.PNIM_ITS ---
Progress Note: A&P Assessment and Plan (1) Multiple drug resistant organism (MDRO) culture positive: Code(s): Z16.24 - Resistance to multiple antibiotics Status: Acute Assessment and Plan: urine culture from outside shows MDRO Klebsiella, continue treatment with meropenem. CT abdomen pelvis without abscess or obstructive uropathy though right ureter does seem slightly enlarged compared to the left duration of UTI symptoms 3 weeks. Given prolonged symptomatology with resistant findings of sepsis with likely treat for 7-10 days with IV antibiotics. 11/29/23: - Patient does not meet requirements for midline and home infusion set up. - Continue IV Meropenem, anticipated end date 11/1823. - No adverse symptoms from IV abx. 11/27/23: * Continue Meropenem for abx coverage. * CT abd and pelvis indicating cystitis without pyelo. * Await repeat Urine cx results and blood cx results. * Continue to trend labs and VS. * 11/28/23: - Continue Meropenem for now. - We'll discuss with case mgt if patient could complete abx therapy at home. - Appears to be stabilizing well. (2) Urinary tract infection: Qualifiers: Hematuria presence: with hematuria Urinary tract infection type: acute cystitis Qualified Code(s): N30.01 - Acute cystitis with hematuria Code(s): N39.0 - Urinary tract infection, site not specified Status: Acute Assessment and Plan: see above (3) Sepsis: Code(s): A41.9 - Sepsis, unspecified organism Status: Acute Assessment and Plan: severe lactic acidosis with lactic acid of 9 initially with resultant metabolic acidosis with decreased bicarb and increased anion gap MDRO UTI present from prior culture ER initially provided IV Zosyn but due to MDRO status, initiated meropenem instead 11/27/23: * Lactic acidosis resolved. * Pt no longer meeting sepsis status. * Continuing Meropenem therapy. * Awaiting repeat urine cultures and blood cultures. * Trend labs and VS. * 11/28/23: - Resolved. (4) Leukopenia: Code(s): D72.819 - Decreased white blood cell count, unspecified Status: Acute Assessment and Plan: - Possibly related to UTI Sepsis. - Improving. - Continue to trend with IV abx. (5) Type 2 diabetes mellitus: Qualifiers: Diabetes mellitus skilled nursing insulin use: without rn long term care use Diabetes mellitus complication status: with hyperglycemia Qualified Code(s): E11.65 - Type 2 diabetes mellitus with hyperglycemia Code(s): E11.9 - Type 2 diabetes mellitus without complications Status: Acute Assessment and Plan: hold home a medications especially metformin due to severity of lactic acidosis . Will use fingerstick glucose and sliding scale insulin. beta hydroxybutyrate normal after IV fluids 11/27/23: * Good control with fasting glucose in the 130s. * Continue to monitor glucose AC and HS. * Continue SSI * Hypoglycemic protocol * A1C 5.4. * Diabetic diet * 11/28/23: - Remains stable. - Continue current therapy. : - Stable. - Continue current meds. (6) Metabolic acidosis: Code(s): E87.20 - Acidosis, unspecified Status: Resolved Assessment and Plan: -Severe lactic acidosis with lactic acid of 9 initially with resultant metabolic acidosis with decreased bicarb and increased anion gap. -After 2 L of IV fluids ABG is compensated -anion gap acidosis initially anion gap of 21, down to 17 after 2 L of IV fluids, likely due to severe lactic acidosis which is probably combination anti diabetic medications and sepsis 11/27/23: * Now resolved. (7) Hyperlipidemia: Qualifiers: Hyperlipidemia type: mixed hyperlipidemia Qualified Code(s): E78.2 - Mixed hyperlipidemia Code(s): E78.5 - Hyperlipidemia, unspecified Status: Acute Assessment and Plan: continue home medications 11/26/23: * Continue statin therapy. * 11/28/23: - Continue statin. 11/29/23: - Continue statin. (8) Hypothyroidism, unspecified: Qualifiers: Hypothyroidism type: acquired Qualified Code(s): E03.9 - Hypothyroidism, unspecified Code(s): E03.9 - Hypothyroidism, unspecified Status: Chronic Assessment and Plan: 11/26/23: * Continue Levothyroxine. * 11/28/23: - Continue levothyroxine. 11/29/23: - Levothyroxine. (9) Hypertension: Qualifiers: Hypertension type: unspecified Qualified Code(s): I10 - Essential (primary) hypertension Code(s): I10 - Essential (primary) hypertension Status: Chronic Assessment and Plan: normotensive at this time, hold antihypertensives due to sepsis status and resume if blood pressure becomes hypertensive 11/27/23: * BPs well controlled for now. * Continue Amlodipine 10 mg daily. * Continue to monitor and adjust meds as needed. * 11/28/23: - Remains well controlled. - Continue current BP meds. 11/29/23: - Stable. - Continue current meds. (10) Depression: Code(s): F32.9 - Major depressive disorder, single episode, unspecified Status: Chronic Assessment and Plan: hold bupropion and venlafaxine due to hyponatremia sodium 131 normal saline 100 mL/hr after LR boluses 11/27/23: * Continue Effexor 225 mg po daily, and wellbutrin 150 po BID * Monitor * - Stable. - Continue Effexor and Wellbutrin. (11) Hyponatremia: Code(s): E87.1 - Hypo-osmolality and hyponatremia Status: Acute Assessment and Plan: Resolved. * Monitor closely. Subjective Date/time seen: 11/29/23 10:41 Interval history: Very pleasant female admitted with an MDRO UTI of Klebsiella. Patient on Meropenem as per culture and sensitivities. Blood cultures NGTD and urine culture growing MDRO Klebs pneumoniae. Patient reporting continued improvement in symptoms and urine clearing out. Review of Systems Review of Systems: All systems reviewed & are unremarkable except as noted in HPI and below Exam Narrative: GENERAL: Well appears, no acute distress HEAD: Normocephalic, atraumatic. ENT:? Mucous membranes moist. CHEST: Clear to auscultation.? No respiratory distress. subjective dyspnea on exertion HEART: Regular rate and rhythm. ? Normal peripheral pulses. ABDOMEN: Soft, nontender, nondistended. EXTREMITIES: Normal range of motion. No peripheral edema. SKIN: Warm dry normal color NEURO: Alert and oriented x3. PSYCH: Normal mood and affect Objective Data Vital Signs Vital Signs: Vital Signs - 24 hr 11/28/23 20:00 11/28/23 22:00 11/29/23 06:00 Temperature 98.4 F 97 F L Pulse Rate 81 78 Respiratory Rate 20 16 Blood Pressure 150/74 H 154/74 H Pulse Oximetry 98 99 99 Oxygen Delivery Room Air Intake/Output Intake/Output: Intake & Output 11/26/23 11/27/23 11/28/23 11/29/23 23:59 23:59 23:59 23:59 Intake Total 4056.7 3520 3745 1710 Output Total 8239 620 8157 1250 Balance 2806.7 8530 8180 790 Meds/Results Medications: Active Medications Generic Name Dose Route Start Last Admin Trade Name Freq PRN Reason Stop Dose Admin Amlodipine Besylate 10 mg 11/27/23 09:00 11/29/23 09:50 Amlodipine Besylate 10 Mg Tablet PO 10 mg DAILY DEAN Administration Atorvastatin Calcium 10 mg 11/26/23 09:00 11/29/23 09:49 Atorvastatin 10 Mg Tablet PO 10 mg DAILY DEAN Administration Bupropion HCl 150 mg 11/26/23 17:00 11/29/23 09:49 Bupropion Hcl Sr (12 Hr) 150 Mg Tab PO 150 mg BID DEAN Administration Cyanocobalamin 500 mcg 11/26/23 09:00 11/29/23 09:49 Cyanocobalamin 500 Mcg Tablet PO 500 mcg DAILY DEAN Administration Dextrose 12.5 gm 11/25/23 17:51 Dextrose 50% 25 Gm/50 Ml Syringe IV PUSH PRN PRN Hypoglycemia Protocol Docusate Sodium 100 mg 11/26/23 09:00 11/29/23 09:49 Docusate Sodium 100 Mg Capsule PO 100 mg Q12HR DAEN Administration Enoxaparin Sodium 40 mg 11/26/23 09:00 11/29/23 09:50 Enoxaparin 40 Mg/0.4 Ml Syringe SUB-Q 40 mg DAILY DEAN Administration Glucagon 1 mg 11/25/23 17:51 Glucagon For Inj 1 Mg Vial IM PRN PRN Hypoglycemia Protocol Glucose 15 gm 11/25/23 17:51 Glucose Oral Gel 15 Gm Of Glucse In 37.5 Gm Tube PO PRN PRN Hypoglycemia Protocol Dextrose 1,000 mls @ 100 mls/hr 11/25/23 17:51 Dextrose 5% 1,000 Ml IVPB PRN PRN Hypoglycemia Protocol Sodium Chloride 1,000 mls @ 100 mls/hr 11/25/23 17:55 11/29/23 12:25 Normal Saline Iv IV CONT 100 mls/hr .Q10H DEAN Infusion Meropenem 1 gm in 100 mls @ 200 mls/hr 11/28/23 20:00 11/29/23 14:55 IVPB 12/01/23 22:29 200 mls/hr Q8HR DEAN Administration Ibuprofen 600 mg 11/26/23 11:09 11/29/23 09:53 Ibuprofen 600 Mg Tablet PO 600 mg Q6H PRN Administration Mild Pain (1-3) or Headache Insulin Aspart 4 - 8 units 11/26/23 08:00 11/29/23 12:26 Insulin Aspart (*Bkc) 100 Units/Ml SUB-Q Not Given TIDWM [facility] Protocol Levothyroxine Sodium 50 mcg 11/26/23 06:30 11/29/23 06:05 Levothyroxine Sodium 50 Mcg Tablet PO 50 mcg DAILY@0630 DEAN Administration Magnesium Oxide 200 mg 11/26/23 09:00 11/29/23 09:49 Magnesium Oxide 200 Mg Tablet PO 200 mg DAILY DEAN Administration Polyethylene Glycol 17 gm 11/26/23 08:31 11/29/23 09:54 Polyethylene Glycol 3350 17 Gm Powd.Pack PO 17 gm QAM PRN Administration Constipation Venlafaxine HCl 225 mg 11/27/23 09:00 11/29/23 09:49 Venlafaxine Hcl Xr 75 Mg Cap.Er.24h PO 225 mg DAILY DEAN Administration Radiology Results: ITS Impressions Abdomen/Pelvis CT 11/25/23 15:16 IMPRESSION: 1. No evidence of appendicitis, diverticulitis or intestinal obstruction. 2. Distended gallbladder with no definite stones. 3. Sliding hiatus hernia. 4. Constipation. 5. Slightly thickened wall of the urinary bladder. Evaluation for cystitis advised. 6. Loss of height of L2 which is most likely chronic. Clinical correlation advised. Chest X-Ray 11/26/23 08:40 IMPRESSION: 1. Mild atelectasis and scarring in the lower lung zones. Labs Labs: Laboratory Results - last 24 hr 11/28/23 11/28/23 11/29/23 16:49 20:06 05:18 WBC 3.9 L RBC 4.09 L Hgb 10.9 L Hct 35.0 L MCV 85.6 MCH 26.7 MCHC 31.1 L RDW 13.5 Plt Count 199 MPV 10.6 H Immature Gran % (Auto) 0.5 Neut % (Auto) 49.9 Lymph % (Auto) 34.1 [place] % (Auto) 9.8 H Eos % (Auto) 5.2 H Baso % (Auto) 0.5 Lymph # (Auto) 1.32 [place] # (Auto) 0.4 Eos # (Auto) 0.2 Baso # (Auto) 0.0 Abs Immat Gran (auto) 0.02 Absolute Neuts (auto) 1.9 Absolute Nucleated RBC 0.000 Nucleated RBC % 0.0 Sodium 137 Potassium 3.7 Chloride 103 Carbon Dioxide 24 Anion Gap 10 BUN 13 Creatinine 0.70 Estim Creat Clear Calc 73 Estimated GFR > 60 Glucose 134 H POC Capillary Glucose 127 H 145 H Calcium 8.8 Magnesium 1.9 Total Bilirubin 0.5 AST 26 ALT 19 Alkaline Phosphatase 53 Total Protein 6.0 L Albumin 3.6 11/29/23 11/29/23 07:45 11:49 WBC RBC Hgb Hct MCV MCH MCHC RDW Plt Count MPV Immature Gran % (Auto) Neut % (Auto) Lymph % (Auto) [place] % (Auto) Eos % (Auto) Baso % (Auto) Lymph # (Auto) [place] # (Auto) Eos # (Auto) Baso # (Auto) Abs Immat Gran (auto) Absolute Neuts (auto) Absolute Nucleated RBC Nucleated RBC % Sodium Potassium Chloride Carbon Dioxide Anion Gap BUN Creatinine Estim Creat Clear Calc Estimated GFR Glucose POC Capillary Glucose 137 H 125 H Calcium Magnesium Total Bilirubin AST ALT Alkaline Phosphatase Total Protein Albumin Quality VTE Prophylaxis VTE prophylaxis: pharmacologic ordered Hospitalist MIPS Advance Care Plan I have confirmed that the patient's Advanced Care Plan is present, code status is documented, or surrogate decision maker is listed in patient medical record.: Yes Medication Reconciliation I have utilized all available resources to obtain, update and review the patients current medications (includes all prescriptions, OTC, herbals, cannabis, and nutritional supplements).: Yes
[2023-11-29 16:58] LABS: Glucose Point of Care 148 mg/dl (65-105)
[2023-11-29 20:23] LABS: Glucose Point of Care 130 mg/dl (65-105)
[2023-11-29 21:53] VITALS: BP 149/73; PULSE 80; RESP 20; TEMP 36.7; O2SAT 99
[2023-11-30 05:40] LABS: Basophils Percent Auto 0.5 % (0.2-1.2); Eosinophils Absolute Auto 0.3 K/mm3 (0-0.3); Eosinophils Percent Auto 6.6 % (0-4.4); Hematocrit 33.5 % (37.0-47.0); Hemoglobin 10.7 g/dL (12.0-15.0); Immature Granulocyte Absolute 0.01 K/mm3 (0.00-0.031); Immature Granulocyte Percent A 0.3 % (0-0.5); Lymphocytes Absolute Auto 1.45 K/mm3 (0.9-3.2); Lymphocytes Percent Auto 38.3 % (18.3-44.2); Mean Corpuscular HGB Conc 31.9 g/dl (32-36); Mean Corpuscular Hemoglobin 26.8 pg (26-34); Mean Platelet Volume 10.2 fl (7.4-10.4); Monocytes Absolute Auto 0.4 K/mm3 (0.1-0.6); Monocytes Percent Auto 10.6 % (2.6-8.5); Neutrophils Absolute Auto 1.7 K/mm3 (1.3-6.7); Neutrophils Percent Auto 43.7 % (45.5-73.1); Platelet Count Result 196 k/mm3 (150-375); Red Blood Count 3.99 M/mm3 (4.2-5.4); Red Cell Distribution Width 13.5 % (11.5-14.5); White Blood Count 3.8 K/mm3 (4.5-10.0)
[2023-11-30 05:47] LABS: Alanine Aminotransferase 26 U/L (6-35); Albumin Level 3.6 g/dL (3.5-5.1); Alkaline Phosphatase 58 U/L (38-126); Anion Gap 7 mmol/L (4-12); Aspartate Amino Transferase 33 U/L (14-36); Bilirubin,Total 0.5 mg/dL (0.2-1.3); Blood Urea Nitrogen 15 mg/dL (7-17); Calcium 9.4 mg/dL (8.4-10.2); Carbon Dioxide 25 mmol/L (22-30); Chloride 103 mmol/L (98-107); Estimated CRCL calculation 84 ml/min; Estimated Glomerular Filt Rate > 60; Glucose 139 mg/dL (65-110); Magnesium 1.9 mg/dL (1.6-2.3); Potassium 3.8 mmol/L (3.4-5.0); Sodium 135 mmol/L (137-145)
[2023-11-30] MEDS: LEVOTHYROXINE SODIUM 50 MCG TABLET PO (05:51)
[2023-11-30] MEDS: MEROPENEM 1 GM/NS 100 ML 1 GM/100 ML BAG IVPB ×3 (05:54→20:46)
[2023-11-30 05:57] VITALS: BP 148/78; PULSE 78; RESP 22; TEMP 36.6; O2SAT 98
[2023-11-30 07:43] LABS: Glucose Point of Care 145 mg/dl (65-105)
[2023-11-30] MEDS: DOCUSATE SODIUM 100 MG CAPSULE PO ×2 (08:58→20:46)
[2023-11-30] MEDS: ENOXAPARIN 40 MG/0.4 ML SYRINGE SUB-Q (08:58)
[2023-11-30] MEDS: MAGNESIUM OXIDE 200 MG TABLET PO (08:58)
[2023-11-30] MEDS: CYANOCOBALAMIN 500 MCG TABLET PO (08:58)
[2023-11-30] MEDS: amLODIPine BESYLATE 10 MG TABLET PO (08:58)
[2023-11-30] MEDS: ATORVASTATIN 10 MG TABLET PO (08:58)
[2023-11-30] MEDS: VENLAFAXINE HCL XR 75 MG CAP.ER.24H 225 MG PO (08:58)
[2023-11-30] MEDS: buPROPion HCL SR (12 HR) 150 MG TAB PO ×2 (08:58→17:07)
[2023-11-30 11:52] LABS: Glucose Point of Care 142 mg/dl (65-105)
--- NOTE | 2023-11-30 13:17 | P.PNIM_ITS ---
Progress Note: A&P Assessment and Plan (1) Multiple drug resistant organism (MDRO) culture positive: Code(s): Z16.24 - Resistance to multiple antibiotics Status: Acute Assessment and Plan: urine culture from outside shows MDRO Klebsiella, continue treatment with meropenem. CT abdomen pelvis without abscess or obstructive uropathy though right ureter does seem slightly enlarged compared to the left duration of UTI symptoms 3 weeks. Given prolonged symptomatology with resistant findings of sepsis with likely treat for 7-10 days with IV antibiotics. 11/29/23: - Patient does not meet requirements for midline and home infusion set up. - Continue IV Meropenem, anticipated end date 11/1823. - No adverse symptoms from IV abx. 11/27/23: * Continue Meropenem for abx coverage. * CT abd and pelvis indicating cystitis without pyelo. * Await repeat Urine cx results and blood cx results. * Continue to trend labs and VS. * 11/28/23: - Continue Meropenem for now. - We'll discuss with case mgt if patient could complete abx therapy at home. - Appears to be stabilizing well. 11/30/23: - Continue Meropenem to complete dose tomorrow night. - Labs wnl and no fevers or signs and symptoms of infection. - Remains stable. (2) Urinary tract infection: Qualifiers: Hematuria presence: with hematuria Urinary tract infection type: acute cystitis Qualified Code(s): N30.01 - Acute cystitis with hematuria Code(s): N39.0 - Urinary tract infection, site not specified Status: Acute Assessment and Plan: see above (3) Sepsis: Code(s): A41.9 - Sepsis, unspecified organism Status: Acute Assessment and Plan: severe lactic acidosis with lactic acid of 9 initially with resultant metabolic acidosis with decreased bicarb and increased anion gap MDRO UTI present from prior culture ER initially provided IV Zosyn but due to MDRO status, initiated meropenem instead 11/27/23: * Lactic acidosis resolved. * Pt no longer meeting sepsis status. * Continuing Meropenem therapy. * Awaiting repeat urine cultures and blood cultures. * Trend labs and VS. * 11/28/23: - Resolved. (4) Leukopenia: Code(s): D72.819 - Decreased white blood cell count, unspecified Status: Acute Assessment and Plan: - Possibly related to UTI Sepsis. - Remains stable. - Continue to trend with IV abx. 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 Will use fingerstick glucose and sliding scale insulin. beta hydroxybutyrate normal after IV fluids 11/27/23: * Good control with fasting glucose in the 130s. * Continue to monitor glucose AC and HS. * Continue SSI * Hypoglycemic protocol * A1C 5.4. * Diabetic diet * 11/28/23: - Remains stable. - Continue current therapy. : - Stable. - Continue current meds. 11/30/23: - Remains well controlled. - Continue to monitor closely. (6) Metabolic acidosis: Code(s): E87.20 - Acidosis, unspecified Status: Resolved Assessment and Plan: -Severe lactic acidosis with lactic acid of 9 initially with resultant metabolic acidosis with decreased bicarb and increased anion gap. -After 2 L of IV fluids ABG is compensated -anion gap acidosis initially anion gap of 21, down to 17 after 2 L of IV fluids, likely due to severe lactic acidosis which is probably combination anti diabetic medications and sepsis 11/27/23: * Now resolved. (7) Hyperlipidemia: Qualifiers: Hyperlipidemia type: mixed hyperlipidemia Qualified Code(s): E78.2 - Mixed hyperlipidemia Code(s): E78.5 - Hyperlipidemia, unspecified Status: Acute Assessment and Plan: continue home medications 11/26/23: * Continue statin therapy. * 11/28/23: - Continue statin. 11/29/23: - Continue statin. 12/01/23: - Statin. (8) Hypothyroidism, unspecified: Qualifiers: Hypothyroidism type: acquired Qualified Code(s): E03.9 - Hypothyroidism, unspecified Code(s): E03.9 - Hypothyroidism, unspecified Status: Chronic Assessment and Plan: 11/26/23: * Continue Levothyroxine. * 11/28/23: - Continue levothyroxine. 11/29/23: - Levothyroxine. 11/30/23: - Continue levothyroxine. (9) Hypertension: Qualifiers: Hypertension type: unspecified Qualified Code(s): I10 - Essential (primary) hypertension Code(s): I10 - Essential (primary) hypertension Status: Chronic Assessment and Plan: normotensive at this time, hold antihypertensives due to sepsis status and resume if blood pressure becomes hypertensive 11/27/23: * BPs well controlled for now. * Continue Amlodipine 10 mg daily. * Continue to monitor and adjust meds as needed. * 11/28/23: - Remains well controlled. - Continue current BP meds. 11/29/23: - Stable. - Continue current meds. 11/30/23 - Stable on current meds. (10) Depression: Code(s): F32.9 - Major depressive disorder, single episode, unspecified Status: Chronic Assessment and Plan: hold bupropion and venlafaxine due to hyponatremia sodium 131 normal saline 100 mL/hr after LR boluses 11/27/23: * Continue Effexor 225 mg po daily, and wellbutrin 150 po BID * Monitor * - Stable. - Continue Effexor and Wellbutrin. (11) Hyponatremia: Code(s): E87.1 - Hypo-osmolality and hyponatremia Status: Acute Assessment and Plan: Resolved. - Remains stable. - Continue to monitor closely. Plan - Continue IV abx for MDRO UTI. Patient does not meet requirements for home IV infusion. Time Spent With Patient Time with patient: 15 - 25 minutes Subjective Date/time seen: 11/30/23 09:17 Interval history: Pleasant female admitted with an MDRO UTI of Klebsiella. Patient on Meropenem as per culture and sensitivities. Blood cultures NGTD and urine culture growing MDRO Klebs pneumoniae. Patient reporting continued improvement in symptoms and urine clearing out. Patient does not qualify home IV abx infusion and will complete abx treatment inpatient. Review of Systems Review of Systems: All systems reviewed & are unremarkable except as noted in HPI and below Exam Narrative: GENERAL: Well appearing, no acute distress HEAD: Normocephalic, atraumatic. ENT:? Mucous membranes moist. CHEST: Clear to auscultation.? No respiratory distress. subjective dyspnea on exertion HEART: Regular rate and rhythm. ? Normal peripheral pulses. ABDOMEN: Soft, nontender, nondistended. EXTREMITIES: Normal range of motion. No peripheral edema. SKIN: Warm dry normal color NEURO: Alert and oriented x3. PSYCH: Normal mood and affect Objective Data Vital Signs Vital Signs: Vital Signs - 24 hr 11/29/23 14:00 11/29/23 20:00 11/29/23 21:53 Temperature 97.3 F L 98.1 F Pulse Rate 85 80 Respiratory Rate 16 20 Blood Pressure 148/75 H 149/73 H Pulse Oximetry 99 99 Oxygen Delivery Room Air 11/30/23 05:57 11/30/23 08:58 Temperature 97.9 F Pulse Rate 78 Respiratory Rate 22 H Blood Pressure 148/78 H Pulse Oximetry 98 Oxygen Delivery Room Air Intake/Output Intake/Output: Intake & Output 11/27/23 11/28/23 11/29/23 11/30/23 23:59 23:59 23:59 23:59 Intake Total 3520 3745 2366 2060 Output Total 800 1825 1250 1100 Balance 2720 1920 1116 960 Meds/Results Medications: Active Medications Generic Name Dose Route Start Last Admin Trade Name Freq PRN Reason Stop Dose Admin Amlodipine Besylate 10 mg 11/27/23 09:00 11/30/23 08:58 Amlodipine Besylate 10 Mg Tablet PO 10 mg DAILY DEAN Administration Atorvastatin Calcium 10 mg 11/26/23 09:00 11/30/23 08:58 Atorvastatin 10 Mg Tablet PO 10 mg DAILY DEAN Administration Bupropion HCl 150 mg 11/26/23 17:00 11/30/23 08:58 Bupropion Hcl Sr (12 Hr) 150 Mg Tab PO 150 mg BID DEAN Administration Cyanocobalamin 500 mcg 11/26/23 09:00 11/30/23 08:58 Cyanocobalamin 500 Mcg Tablet PO 500 mcg DAILY DEAN Administration Dextrose 12.5 gm 11/25/23 17:51 Dextrose 50% 25 Gm/50 Ml Syringe IV PUSH PRN PRN Hypoglycemia Protocol Docusate Sodium 100 mg 11/26/23 09:00 11/30/23 08:58 Docusate Sodium 100 Mg Capsule PO 100 mg Q12HR DEAN Administration Enoxaparin Sodium 40 mg 11/26/23 09:00 11/30/23 08:58 Enoxaparin 40 Mg/0.4 Ml Syringe SUB-Q 40 mg DAILY DEAN Administration Glucagon 1 mg 11/25/23 17:51 Glucagon For Inj 1 Mg Vial IM PRN PRN Hypoglycemia Protocol Glucose 15 gm 11/25/23 17:51 Glucose Oral Gel 15 Gm Of Glucse In 37.5 Gm Tube PO PRN PRN Hypoglycemia Protocol Dextrose 1,000 mls @ 100 mls/hr 11/25/23 17:51 Dextrose 5% 1,000 Ml IVPB PRN PRN Hypoglycemia Protocol Meropenem 1 gm in 100 mls @ 200 mls/hr 11/28/23 20:00 11/30/23 06:26 IVPB 12/01/23 22:29 Infused Q8HR DEAN Infusion Ibuprofen 600 mg 11/26/23 11:09 11/29/23 09:53 Ibuprofen 600 Mg Tablet PO 600 mg Q6H PRN Administration Mild Pain (1-3) or Headache Insulin Aspart 4 - 8 units 11/26/23 08:00 11/30/23 08:09 Insulin Aspart (*Bkc) 100 Units/Ml SUB-Q Not Given TIDWM [facility] Protocol Levothyroxine Sodium 50 mcg 11/26/23 06:30 11/30/23 05:51 Levothyroxine Sodium 50 Mcg Tablet PO 50 mcg DAILY@0630 DEAN Administration Magnesium Oxide 200 mg 11/26/23 09:00 11/30/23 08:58 Magnesium Oxide 200 Mg Tablet PO 200 mg DAILY DEAN Administration Polyethylene Glycol 17 gm 11/26/23 08:31 11/29/23 09:54 Polyethylene Glycol 3350 17 Gm Powd.Pack PO 17 gm QAM PRN Administration Constipation Venlafaxine HCl 225 mg 11/27/23 09:00 11/30/23 08:58 Venlafaxine Hcl Xr 75 Mg Cap.Er.24h PO 225 mg DAILY DEAN Administration Radiology Results: ITS Impressions Abdomen/Pelvis CT 11/25/23 15:16 IMPRESSION: 1. No evidence of appendicitis, diverticulitis or intestinal obstruction. 2. Distended gallbladder with no definite stones. 3. Sliding hiatus hernia. 4. Constipation. 5. Slightly thickened wall of the urinary bladder. Evaluation for cystitis advised. 6. Loss of height of L2 which is most likely chronic. Clinical correlation advised. Chest X-Ray 11/26/23 08:40 IMPRESSION: 1. Mild atelectasis and scarring in the lower lung zones. Labs Labs: Laboratory Results - last 24 hr 11/29/23 11/29/23 11/30/23 16:45 20:18 05:25 WBC 3.8 L RBC 3.99 L Hgb 10.7 L Hct 33.5 L MCV 84.0 MCH 26.8 MCHC 31.9 L RDW 13.5 Plt Count 196 MPV 10.2 Immature Gran % (Auto) 0.3 Neut % (Auto) 43.7 L Lymph % (Auto) 38.3 [place] % (Auto) 10.6 H Eos % (Auto) 6.6 H Baso % (Auto) 0.5 Lymph # (Auto) 1.45 [place] # (Auto) 0.4 Eos # (Auto) 0.3 Baso # (Auto) 0.0 Abs Immat Gran (auto) 0.01 Absolute Neuts (auto) 1.7 Absolute Nucleated RBC 0.000 Nucleated RBC % 0.0 Sodium 135 L Potassium 3.8 Chloride 103 Carbon Dioxide 25 Anion Gap 7 BUN 15 Creatinine 0.60 L Estim Creat Clear Calc 84 Estimated GFR > 60 Glucose 139 H POC Capillary Glucose 148 H 130 H Calcium 9.4 Magnesium 1.9 Total Bilirubin 0.5 AST 33 ALT 26 Alkaline Phosphatase 58 Total Protein 6.0 L Albumin 3.6 11/30/23 11/30/23 07:35 11:37 WBC RBC Hgb Hct MCV MCH MCHC RDW Plt Count MPV Immature Gran % (Auto) Neut % (Auto) Lymph % (Auto) [place] % (Auto) Eos % (Auto) Baso % (Auto) Lymph # (Auto) [place] # (Auto) Eos # (Auto) Baso # (Auto) Abs Immat Gran (auto) Absolute Neuts (auto) Absolute Nucleated RBC Nucleated RBC % Sodium Potassium Chloride Carbon Dioxide Anion Gap BUN Creatinine Estim Creat Clear Calc Estimated GFR Glucose POC Capillary Glucose 145 H 142 H Calcium Magnesium Total Bilirubin AST ALT Alkaline Phosphatase Total Protein Albumin Quality VTE Prophylaxis VTE prophylaxis: pharmacologic ordered
[2023-11-30 14:00] VITALS: BP 145/67; PULSE 75; RESP 18; TEMP 36.6; O2SAT 100
[2023-11-30] MEDS: IBUPROFEN 600 MG TABLET PO (14:03)
[2023-11-30 16:56] LABS: Glucose Point of Care 135 mg/dl (65-105)
[2023-11-30 21:17] LABS: Glucose Point of Care 146 mg/dl (65-105)
[2023-11-30 21:19] VITALS: BP 145/75; PULSE 75; RESP 20; TEMP 37.6; O2SAT 99
[2023-12-01 06:00] VITALS: BP 147/85; PULSE 74; RESP 16; TEMP 36.3; O2SAT 99
[2023-12-01] MEDS: LEVOTHYROXINE SODIUM 50 MCG TABLET PO (06:08)
[2023-12-01] MEDS: MEROPENEM 1 GM/NS 100 ML 1 GM/100 ML BAG IVPB ×3 (06:09→20:50)
[2023-12-01 06:30] LABS: Basophils Percent Auto 0.8 % (0.2-1.2); Eosinophils Absolute Auto 0.2 K/mm3 (0-0.3); Eosinophils Percent Auto 5.6 % (0-4.4); Hematocrit 35.9 % (37.0-47.0); Hemoglobin 11.3 g/dL (12.0-15.0); Immature Granulocyte Absolute 0.02 K/mm3 (0.00-0.031); Immature Granulocyte Percent A 0.5 % (0-0.5); Lymphocytes Absolute Auto 1.33 K/mm3 (0.9-3.2); Lymphocytes Percent Auto 34.1 % (18.3-44.2); Mean Corpuscular HGB Conc 31.5 g/dl (32-36); Mean Corpuscular Hemoglobin 26.8 pg (26-34); Mean Corpuscular Volume 85.1 fl (80-100); Mean Platelet Volume 10.2 fl (7.4-10.4); Monocytes Absolute Auto 0.4 K/mm3 (0.1-0.6); Monocytes Percent Auto 10.8 % (2.6-8.5); Neutrophils Absolute Auto 1.9 K/mm3 (1.3-6.7); Neutrophils Percent Auto 48.2 % (45.5-73.1); Platelet Count Result 201 k/mm3 (150-375); Red Blood Count 4.22 M/mm3 (4.2-5.4); Red Cell Distribution Width 13.7 % (11.5-14.5); White Blood Count 3.9 K/mm3 (4.5-10.0)
[2023-12-01 06:52] LABS: Alanine Aminotransferase 46 U/L (6-35); Albumin Level 3.9 g/dL (3.5-5.1); Alkaline Phosphatase 56 U/L (38-126); Anion Gap 9 mmol/L (4-12); Aspartate Amino Transferase 50 U/L (14-36); Bilirubin,Total 0.5 mg/dL (0.2-1.3); Blood Urea Nitrogen 16 mg/dL (7-17); Calcium 9.3 mg/dL (8.4-10.2); Carbon Dioxide 26 mmol/L (22-30); Chloride 101 mmol/L (98-107); Estimated CRCL calculation 73 ml/min; Estimated Glomerular Filt Rate > 60; Glucose 139 mg/dL (65-110); Magnesium 2.1 mg/dL (1.6-2.3); Potassium 4.2 mmol/L (3.4-5.0); Sodium 136 mmol/L (137-145)
[2023-12-01 07:53] LABS: Glucose Point of Care 132 mg/dl (65-105)
[2023-12-01] MEDS: ENOXAPARIN 40 MG/0.4 ML SYRINGE SUB-Q (09:09)
[2023-12-01] MEDS: buPROPion HCL SR (12 HR) 150 MG TAB PO ×2 (09:09→16:34)
[2023-12-01] MEDS: MAGNESIUM OXIDE 200 MG TABLET PO (09:09)
[2023-12-01] MEDS: CYANOCOBALAMIN 500 MCG TABLET PO (09:09)
[2023-12-01] MEDS: VENLAFAXINE HCL XR 75 MG CAP.ER.24H 225 MG PO (09:09)
[2023-12-01] MEDS: DOCUSATE SODIUM 100 MG CAPSULE PO ×2 (09:09→20:55)
[2023-12-01] MEDS: ATORVASTATIN 10 MG TABLET PO (09:10)
[2023-12-01] MEDS: amLODIPine BESYLATE 10 MG TABLET PO (09:10)
[2023-12-01] MEDS: IBUPROFEN 600 MG TABLET PO ×3 (09:17→23:04)
--- NOTE | 2023-12-01 11:12 | P.PNIM_ITS ---
Progress Note: A&P Assessment and Plan (1) Multiple drug resistant organism (MDRO) culture positive: Code(s): Z16.24 - Resistance to multiple antibiotics Status: Acute Assessment and Plan: - urine culture from outside shows MDRO Klebsiella, continue treatment with meropenem. - CT abdomen suspicious for cystitis, pelvis without abscess or obstructive uropathy though right ureter seemed slightly enlarged compared to the left. - Reported UTI symptoms > 3 weeks prior to admission. - Patient to f/u with urologist outpatient for further ureters evaluation. - 7-10 days with IV antibiotics recommended. - Patient did not meet requirements for midline and home infusion set up. - IV Meropenem, anticipated end date 11/1823. - No fevers and labs ramain fairly unremarkable. (2) Urinary tract infection: Qualifiers: Hematuria presence: with hematuria Urinary tract infection type: acute cystitis Qualified Code(s): N30.01 - Acute cystitis with hematuria Code(s): N39.0 - Urinary tract infection, site not specified Status: Acute Assessment and Plan: see above (3) Sepsis: Code(s): A41.9 - Sepsis, unspecified organism Status: Acute Assessment and Plan: - Resolved. (4) Leukopenia: Code(s): D72.819 - Decreased white blood cell count, unspecified Status: Acute Assessment and Plan: - Possibly related to UTI Sepsis. - Remain stable. - Continue to trend with IV abx. (5) Type 2 diabetes mellitus: Qualifiers: Diabetes mellitus terminal manager insulin use: without skilled nursing use Diabetes mellitus complication status: with hyperglycemia Qualified Code(s): E11.65 - Type 2 diabetes mellitus with hyperglycemia Code(s): E11.9 - Type 2 diabetes mellitus without complications Status: Acute Assessment and Plan: * Good control with fasting glucose in the 130s without interventions. * Continue to monitor glucose AC and HS. * Continue SSI. * Hypoglycemic protocol * A1C 5.4. * Diabetic diet. (6) Metabolic acidosis: Code(s): E87.20 - Acidosis, unspecified Status: Resolved Assessment and Plan: - Possibly related to infection and meds. * Now resolved. (7) Hyperlipidemia: Qualifiers: Hyperlipidemia type: mixed hyperlipidemia Qualified Code(s): E78.2 - Mixed hyperlipidemia Code(s): E78.5 - Hyperlipidemia, unspecified Status: Acute Assessment and Plan: - Continue statin. (8) Hypothyroidism, unspecified: Qualifiers: Hypothyroidism type: acquired Qualified Code(s): E03.9 - Hypothyroidism, unspecified Code(s): E03.9 - Hypothyroidism, unspecified Status: Chronic Assessment and Plan: * Continue Levothyroxine. (9) Hypertension: Qualifiers: Hypertension type: unspecified Qualified Code(s): I10 - Essential (primary) hypertension Code(s): I10 - Essential (primary) hypertension Status: Chronic Assessment and Plan: - Stable on current meds. (10) Depression: Code(s): F32.9 - Major depressive disorder, single episode, unspecified Status: Chronic Assessment and Plan: - Stable. - Continue Effexor and Wellbutrin. (11) Hyponatremia: Code(s): E87.1 - Hypo-osmolality and hyponatremia Status: Acute Assessment and Plan: Resolved. - Remains stable. Plan - Continue IV abx for MDRO UTI. Patient does not meet requirements for home IV infusion. Time Spent With Patient Time with patient: 15 - 25 minutes Subjective Date/time seen: 12/01/23 10:12 Interval history: Pleasant female admitted with an MDRO UTI of Klebsiella. Patient on Meropenem as per culture and sensitivities. Blood cultures NGTD and urine culture growing MDRO Klebs pneumoniae. Patient currently with no urinary symptoms. Patient needs 2 more doses for IV abx and possibly discharge in AM after abx completed. Pt calm on bedrest with no distressful symptoms. Review of Systems Review of Systems: All systems reviewed & are unremarkable except as noted in HPI and below Exam Narrative: GENERAL: Well appearing, no acute distress HEAD: Normocephalic, atraumatic. ENT:? Mucous membranes moist. CHEST: Clear to auscultation.? No respiratory distress. subjective dyspnea on exertion HEART: Regular rate and rhythm. ? Normal peripheral pulses. ABDOMEN: Soft, nontender, nondistended. EXTREMITIES: Normal range of motion. No peripheral edema. SKIN: Warm dry normal color NEURO: Alert and oriented x3. PSYCH: Normal mood and affect Objective Data Vital Signs Vital Signs: Vital Signs - 24 hr 11/30/23 14:00 11/30/23 20:00 11/30/23 21:19 Temperature 97.9 F 99.7 F H Pulse Rate 75 75 Respiratory Rate 18 20 Blood Pressure 145/67 H 145/75 H Pulse Oximetry 100 99 Oxygen Delivery Room Air 12/01/23 06:00 12/01/23 09:09 Temperature 97.4 F L Pulse Rate 74 Respiratory Rate 16 Blood Pressure 147/85 H Pulse Oximetry 99 Oxygen Delivery Room Air Intake/Output Intake/Output: Intake & Output 11/28/23 11/29/23 11/30/23 12/01/23 23:59 23:59 23:59 23:59 Intake Total 3745 2366 2740 890 Output Total 1825 1250 1600 Balance 1920 1116 1140 890 Meds/Results Medications: Active Medications Generic Name Dose Route Start Last Admin Trade Name Freq PRN Reason Stop Dose Admin Amlodipine Besylate 10 mg 11/27/23 09:00 12/01/23 09:10 Amlodipine Besylate 10 Mg Tablet PO 10 mg DAILY DEAN Administration Atorvastatin Calcium 10 mg 11/26/23 09:00 12/01/23 09:10 Atorvastatin 10 Mg Tablet PO 10 mg DAILY DEAN Administration Bupropion HCl 150 mg 11/26/23 17:00 12/01/23 09:09 Bupropion Hcl Sr (12 Hr) 150 Mg Tab PO 150 mg BID DEAN Administration Cyanocobalamin 500 mcg 11/26/23 09:00 12/01/23 09:09 Cyanocobalamin 500 Mcg Tablet PO 500 mcg DAILY DEAN Administration Dextrose 12.5 gm 11/25/23 17:51 Dextrose 50% 25 Gm/50 Ml Syringe IV PUSH PRN PRN Hypoglycemia Protocol Docusate Sodium 100 mg 11/26/23 09:00 12/01/23 09:09 Docusate Sodium 100 Mg Capsule PO 100 mg Q12HR DEAN Administration Enoxaparin Sodium 40 mg 11/26/23 09:00 12/01/23 09:09 Enoxaparin 40 Mg/0.4 Ml Syringe SUB-Q 40 mg DAILY DEAN Administration Glucagon 1 mg 11/25/23 17:51 Glucagon For Inj 1 Mg Vial IM PRN PRN Hypoglycemia Protocol Glucose 15 gm 11/25/23 17:51 Glucose Oral Gel 15 Gm Of Glucse In 37.5 Gm Tube PO PRN PRN Hypoglycemia Protocol Dextrose 1,000 mls @ 100 mls/hr 11/25/23 17:51 Dextrose 5% 1,000 Ml IVPB PRN PRN Hypoglycemia Protocol Meropenem 1 gm in 100 mls @ 200 mls/hr 11/28/23 20:00 12/01/23 06:39 IVPB 12/01/23 22:29 Infused Q8HR DEAN Infusion Ibuprofen 600 mg 11/26/23 11:09 12/01/23 09:17 Ibuprofen 600 Mg Tablet PO 600 mg Q6H PRN Administration Mild Pain (1-3) or Headache Insulin Aspart 4 - 8 units 11/26/23 08:00 12/01/23 09:08 Insulin Aspart (*Bkc) 100 Units/Ml SUB-Q Not Given TIDWM [facility] Protocol Levothyroxine Sodium 50 mcg 11/26/23 06:30 12/01/23 06:08 Levothyroxine Sodium 50 Mcg Tablet PO 50 mcg DAILY@0630 DEAN Administration Magnesium Oxide 200 mg 11/26/23 09:00 12/01/23 09:09 Magnesium Oxide 200 Mg Tablet PO 200 mg DAILY DEAN Administration Polyethylene Glycol 17 gm 11/26/23 08:31 11/29/23 09:54 Polyethylene Glycol 3350 17 Gm Powd.Pack PO 17 gm QAM PRN Administration Constipation Venlafaxine HCl 225 mg 11/27/23 09:00 12/01/23 09:09 Venlafaxine Hcl Xr 75 Mg Cap.Er.24h PO 225 mg DAILY DEAN Administration Radiology Results: ITS Impressions Abdomen/Pelvis CT 11/25/23 15:16 IMPRESSION: 1. No evidence of appendicitis, diverticulitis or intestinal obstruction. 2. Distended gallbladder with no definite stones. 3. Sliding hiatus hernia. 4. Constipation. 5. Slightly thickened wall of the urinary bladder. Evaluation for cystitis advised. 6. Loss of height of L2 which is most likely chronic. Clinical correlation advised. Chest X-Ray 11/26/23 08:40 IMPRESSION: 1. Mild atelectasis and scarring in the lower lung zones. Labs Labs: Laboratory Results - last 24 hr 11/30/23 11/30/23 11/30/23 11:37 16:45 20:45 WBC RBC Hgb Hct MCV MCH MCHC RDW Plt Count MPV Immature Gran % (Auto) Neut % (Auto) Lymph % (Auto) [place] % (Auto) Eos % (Auto) Baso % (Auto) Lymph # (Auto) [place] # (Auto) Eos # (Auto) Baso # (Auto) Abs Immat Gran (auto) Absolute Neuts (auto) Absolute Nucleated RBC Nucleated RBC % Sodium Potassium Chloride Carbon Dioxide Anion Gap BUN Creatinine Estim Creat Clear Calc Estimated GFR Glucose POC Capillary Glucose 142 H 135 H 146 H Calcium Magnesium Total Bilirubin AST ALT Alkaline Phosphatase Total Protein Albumin 12/01/23 12/01/23 06:03 07:45 WBC 3.9 L RBC 4.22 Hgb 11.3 L Hct 35.9 L MCV 85.1 MCH 26.8 MCHC 31.5 L RDW 13.7 Plt Count 201 MPV 10.2 Immature Gran % (Auto) 0.5 Neut % (Auto) 48.2 Lymph % (Auto) 34.1 [place] % (Auto) 10.8 H Eos % (Auto) 5.6 H Baso % (Auto) 0.8 Lymph # (Auto) 1.33 [place] # (Auto) 0.4 Eos # (Auto) 0.2 Baso # (Auto) 0.0 Abs Immat Gran (auto) 0.02 Absolute Neuts (auto) 1.9 Absolute Nucleated RBC 0.000 Nucleated RBC % 0.0 Sodium 136 L Potassium 4.2 Chloride 101 Carbon Dioxide 26 Anion Gap 9 BUN 16 Creatinine 0.70 Estim Creat Clear Calc 73 Estimated GFR > 60 Glucose 139 H POC Capillary Glucose 132 H Calcium 9.3 Magnesium 2.1 Total Bilirubin 0.5 AST 50 H ALT 46 H Alkaline Phosphatase 56 Total Protein 7.0 Albumin 3.9 Quality VTE Prophylaxis VTE prophylaxis: pharmacologic ordered
[2023-12-01 12:15] LABS: Glucose Point of Care 136 mg/dl (65-105)
[2023-12-01 15:56] VITALS: BP 138/76; PULSE 75; RESP 18; TEMP 36.8; O2SAT 99
--- NOTE | 2023-12-01 15:58 | PC.NURSE ---
Pt is A&O4 female who has participated and contributed in plan of care. Pt reports mild headache, but denies any other pain. Pt is compliant with care and is looking forward to discharging tomorrow. Pt continues to receive IV abx per plan of care. Pt blood sugars are under control and has not required any insulin. Will continue to monitor pt.
[2023-12-01 16:55] LABS: Glucose Point of Care 154 mg/dl (65-105)
[2023-12-01 20:45] VITALS: BP 148/72; PULSE 72; RESP 16; TEMP 36.1; O2SAT 99
[2023-12-01 21:00] VITALS: PULSE 75; RESP 18; O2SAT 99
[2023-12-01 21:50] LABS: Glucose Point of Care 136 mg/dl (65-105)
[2023-12-02 04:45] VITALS: BP 153/68; PULSE 75; RESP 18; TEMP 36.6; O2SAT 100
[2023-12-02] MEDS: LEVOTHYROXINE SODIUM 50 MCG TABLET PO (06:33)
[2023-12-02 07:34] LABS: Basophils Percent Auto 0.8 % (0.2-1.2); Eosinophils Absolute Auto 0.4 K/mm3 (0-0.3); Eosinophils Percent Auto 7.6 % (0-4.4); Hematocrit 39.8 % (37.0-47.0); Hemoglobin 12.7 g/dL (12.0-15.0); Immature Granulocyte Absolute 0.02 K/mm3 (0.00-0.031); Immature Granulocyte Percent A 0.4 % (0-0.5); Lymphocytes Absolute Auto 1.79 K/mm3 (0.9-3.2); Lymphocytes Percent Auto 35.1 % (18.3-44.2); Mean Corpuscular HGB Conc 31.9 g/dl (32-36); Mean Corpuscular Hemoglobin 27.2 pg (26-34); Mean Corpuscular Volume 85.2 fl (80-100); Mean Platelet Volume 10.1 fl (7.4-10.4); Monocytes Absolute Auto 0.4 K/mm3 (0.1-0.6); Monocytes Percent Auto 7.3 % (2.6-8.5); Neutrophils Absolute Auto 2.5 K/mm3 (1.3-6.7); Neutrophils Percent Auto 48.8 % (45.5-73.1); Platelet Count Result 276 k/mm3 (150-375); Red Blood Count 4.67 M/mm3 (4.2-5.4); Red Cell Distribution Width 13.8 % (11.5-14.5); White Blood Count 5.1 K/mm3 (4.5-10.0)
[2023-12-02 07:54] LABS: Alanine Aminotransferase 73 U/L (6-35); Albumin Level 4.4 g/dL (3.5-5.1); Alkaline Phosphatase 68 U/L (38-126); Anion Gap 10 mmol/L (4-12); Aspartate Amino Transferase 66 U/L (14-36); Bilirubin,Total 0.6 mg/dL (0.2-1.3); Blood Urea Nitrogen 15 mg/dL (7-17); Calcium 9.7 mg/dL (8.4-10.2); Carbon Dioxide 27 mmol/L (22-30); Chloride 99 mmol/L (98-107); Estimated CRCL calculation 84 ml/min; Estimated Glomerular Filt Rate > 60; Glucose 148 mg/dL (65-110); Magnesium 2.1 mg/dL (1.6-2.3); Potassium 4.2 mmol/L (3.4-5.0); Sodium 136 mmol/L (137-145)
[2023-12-02 07:55] LABS: Glucose Point of Care 140 mg/dl (65-105)
[2023-12-02] MEDS: amLODIPine BESYLATE 10 MG TABLET PO (08:15)
[2023-12-02] MEDS: ENOXAPARIN 40 MG/0.4 ML SYRINGE SUB-Q (08:15)
[2023-12-02] MEDS: MAGNESIUM OXIDE 200 MG TABLET PO (08:15)
[2023-12-02] MEDS: buPROPion HCL SR (12 HR) 150 MG TAB PO (08:15)
[2023-12-02] MEDS: DOCUSATE SODIUM 100 MG CAPSULE PO (08:15)
[2023-12-02] MEDS: ATORVASTATIN 10 MG TABLET PO (08:15)
[2023-12-02] MEDS: VENLAFAXINE HCL XR 75 MG CAP.ER.24H 225 MG PO (08:16)
[2023-12-02] MEDS: CYANOCOBALAMIN 500 MCG TABLET PO (08:16)
[2023-12-02 12:00] LABS: Glucose Point of Care 130 mg/dl (65-105)
--- NOTE | 2023-12-02 17:03 | PM.DS ---
DS: Admitting Diagnosis Discharge Date 12/02/23 Admitting Diagnosis MDRO Klebsiella UTI DS: Discharge Diagnosis Discharge Diagnosis (1) Multiple drug resistant organism (MDRO) culture positive: Code(s): Z16.24 - Resistance to multiple antibiotics Status: Acute Assessment and Plan: - Reported UTI symptoms > 3 weeks prior to admission. - urine culture from outside shows MDRO Klebsiella. - Patient completed 7 days of IV meropenem. - CT abdomen suspicious for cystitis, pelvis without abscess or obstructive uropathy though right ureter seemed slightly enlarged compared to the left. Patient was referred to the urologist and will f/u outpatient. - No fevers and labs ramain fairly unremarkable inpatient. (2) Urinary tract infection: Qualifiers: Hematuria presence: with hematuria Urinary tract infection type: acute cystitis Qualified Code(s): N30.01 - Acute cystitis with hematuria Code(s): N39.0 - Urinary tract infection, site not specified Status: Acute Assessment and Plan: Completed 7 days IV Meropenem treatment. (3) Sepsis: Code(s): A41.9 - Sepsis, unspecified organism Status: Acute Assessment and Plan: - Resolved. (4) Leukopenia: Code(s): D72.819 - Decreased white blood cell count, unspecified Status: Acute Assessment and Plan: - Possibly related to UTI Sepsis. - Resolved. (5) Type 2 diabetes mellitus: Qualifiers: Diabetes mellitus correction insulin use: without superintendent terminal use Diabetes mellitus complication status: with hyperglycemia Qualified Code(s): E11.65 - Type 2 diabetes mellitus with hyperglycemia Code(s): E11.9 - Type 2 diabetes mellitus without complications Status: Acute Assessment and Plan: A1C 5.4. Good control with fasting glucose in the 130s without interventions inpatient. (6) Metabolic acidosis: Code(s): E87.20 - Acidosis, unspecified Status: Resolved Assessment and Plan: - Possibly related to infection and meds. Resolved inpatient. (7) Hyperlipidemia: Qualifiers: Hyperlipidemia type: mixed hyperlipidemia Qualified Code(s): E78.2 - Mixed hyperlipidemia Code(s): E78.5 - Hyperlipidemia, unspecified Status: Acute Assessment and Plan: - Continued on statin. (8) Hypothyroidism, unspecified: Qualifiers: Hypothyroidism type: acquired Qualified Code(s): E03.9 - Hypothyroidism, unspecified Code(s): E03.9 - Hypothyroidism, unspecified Status: Chronic Assessment and Plan: Continued on Levothyroxine. (9) Hypertension: Qualifiers: Hypertension type: unspecified Qualified Code(s): I10 - Essential (primary) hypertension Code(s): I10 - Essential (primary) hypertension Status: Chronic Assessment and Plan: - Stable on home meds. (10) Depression: Code(s): F32.9 - Major depressive disorder, single episode, unspecified Status: Chronic Assessment and Plan: - Stable on Effexor and Wellbutrin. (11) Hyponatremia: Code(s): E87.1 - Hypo-osmolality and hyponatremia Status: Acute Assessment and Plan: Resolved inpatient. DS: Summary Hospital Course Hospital Course: Patient presented with UTI symptoms including frequency and dark urine for over 3 weeks. Her UA was positive in the ER even after receiving IV Zosyn, so she was admitted for MDRO UTI. Blood cultures were negative and urine culture grew MDRO Klebsiella pneumoniae. Patient was treated with 7 days IV Meropenem as per culture and sensitivities. She did not meet requirements of home IV infusion. Her UTI symptoms resolved prior to discharge, will all her labs fairly unremarkable prior to discharge. She will f/u with the urologist outpatient for evaluation of her ureters. No acute distress was noted or reported prior to discharge, with all her other chronic conditions remaining stable inpatient. Status at Discharge Functional status at discharge: independent ambulation Overall status at discharge: patient is back to baseline Time Spent with Patient Time attestation: Total time spent providing and/or coordinating discharge services: Time spent: Greater than 30 minutes Exam Narrative: GENERAL: Well appearing, no acute distress HEAD: Normocephalic, atraumatic. ENT:? Mucous membranes moist. CHEST: Clear to auscultation.? No respiratory distress. subjective dyspnea on exertion HEART: Regular rate and rhythm. ? Normal peripheral pulses. ABDOMEN: Soft, nontender, nondistended. EXTREMITIES: Normal range of motion. No peripheral edema. SKIN: Warm dry normal color NEURO: Alert and oriented x3. PSYCH: Normal mood and affect DS: Data Data Completed and Pending Labs on day of discharge: Labs from last 24 hours 12/02/23 12/02/23 12/02/23 11:56 07:51 07:14 WBC 5.1 RBC 4.67 Hgb 12.7 Hct 39.8 MCV 85.2 MCH 27.2 MCHC 31.9 L RDW 13.8 Plt Count 276 MPV 10.1 Immature Gran % (Auto) 0.4 Neut % (Auto) 48.8 Lymph % (Auto) 35.1 [place] % (Auto) 7.3 Eos % (Auto) 7.6 H Baso % (Auto) 0.8 Lymph # (Auto) 1.79 [place] # (Auto) 0.4 Eos # (Auto) 0.4 H Baso # (Auto) 0.0 Abs Immat Gran (auto) 0.02 Absolute Neuts (auto) 2.5 Absolute Nucleated RBC 0.000 Nucleated RBC % 0.0 Sodium 136 L Potassium 4.2 Chloride 99 Carbon Dioxide 27 Anion Gap 10 BUN 15 Creatinine 0.60 L Estim Creat Clear Calc 84 Estimated GFR > 60 Glucose 148 H POC Capillary Glucose 130 H 140 H Calcium 9.7 Magnesium 2.1 Total Bilirubin 0.6 AST 66 H ALT 73 H Alkaline Phosphatase 68 Total Protein 8.0 Albumin 4.4 12/01/23 20:47 WBC RBC Hgb Hct MCV MCH MCHC RDW Plt Count MPV Immature Gran % (Auto) Neut % (Auto) Lymph % (Auto) [place] % (Auto) Eos % (Auto) Baso % (Auto) Lymph # (Auto) [place] # (Auto) Eos # (Auto) Baso # (Auto) Abs Immat Gran (auto) Absolute Neuts (auto) Absolute Nucleated RBC Nucleated RBC % Sodium Potassium Chloride Carbon Dioxide Anion Gap BUN Creatinine Estim Creat Clear Calc Estimated GFR Glucose POC Capillary Glucose 136 H Calcium Magnesium Total Bilirubin AST ALT Alkaline Phosphatase Total Protein Albumin Discharge Plan Discharge Attending physician on discharge: Evan Shabazz Discharging Clinician: Cristian Pendleton Patient Disposition: Home, Self-Care Activity: as tolerated Diet: heart healthy and diabetic Patient Instructions: Antibiotic Form, Sepsis (DC) Stand Alone Forms: General Discharge Information Follow-up/Referrals: Janessa Rockwell MD [Primary Care Provider] - 1 Week Discharge Medications: Continued bupropion HCl 150 mg tablet sustained-release 12 hr 150 mg PO BID Qty: 270 3RF levothyroxine [Synthroid] 50 mcg Tablet 50 mcg PO DAILY cyanocobalamin (vitamin B-12) 500 mcg Tablet 500 mcg PO DAILY magnesium 200 mg Tablet 200 mg PO DAILY atorvastatin 10 mg tablet 10 mg PO DAILY Qty: 90 3RF amlodipine 10 mg tablet 10 mg PO DAILY Qty: 90 1RF Rx Instructions: take 1 tablet by oral route every day venlafaxine 75 mg capsule,extended release 24hr 225 mg PO DAILY Qty: 270 1RF Ozempic 0.25 mg or 0.5 mg (2 mg/3 mL) pen injector 0.25 mg subcut WEEKLY Qty: 3 1RF Rx Instructions: every Saturday Date of admission: 11/28/23 15:14 Primary Care Provider: Janessa Rockwell Admitting Provider: Kobe Beatty Attending physician on admission: Munira Fonseca Condition: Stable Quality VTE Prophylaxis VTE prophylaxis: pharmacologic ordered Hospitalist MIPS Heart Failure (Qualifier) Patient has current or prior documentation of LVEF less than or equal to 40%, or mod/servere depressed LVSF?: No IF NO, STOP HERE
== END 2023-12-02 13:40 | disposition home or self-care (01) | DRG 690 ==
LOC: ANHED 12:27 → ANHIMU 17:44 → ANH3MEDSUR 11-26 10:04
PROVIDERS: Emergency Medicine; Nurse Practitioner; Nurse Practitioner Adult Health; Admitting Provider Internal Medicine; Emergency Provider Student in an Organized Health Care Education/Training Program; PCP Family Medicine; Visit Provider Nurse Practitioner Adult Health
DX: N30.01 Acute cystitis with hematuria (principal); Z16.24 Resistance to multiple antibiotics; E87.1 Hypo-osmolality and hyponatremia; E87.20 Acidosis, unspecified; Z68.41 Body mass index [BMI] 40.0-44.9, adult; B96.1 Klebsiella pneumoniae [K. pneumoniae] as the cause of diseases classified elsewhere; E66.01 Morbid (severe) obesity due to excess calories; E11.65 Type 2 diabetes mellitus with hyperglycemia; E78.2 Mixed hyperlipidemia; E03.9 Hypothyroidism, unspecified; F32.9 Major depressive disorder, single episode, unspecified; I10 Essential (primary) hypertension; Z79.85 Long-term (current) use of injectable non-insulin antidiabetic drugs
CPT/HCPCS: 36415; 36600; 51701; 71046; 74177; 80048; 80053; 81001; 82010; 82805; 82948; 83036; 83605; 83735; 84145; 85025; 85055; 85380; 87040; 87086; 87088; 96361; 96365; 96366; 96367; 96372; 99285; A9270; G0378; J1650; J2185; J2543; J7030; J7120; Q9967

== ENCOUNTER 2024-01-03 06:38 | Outpatient (CLI) | payer MEDICARE, SELFPAY ==
[2024-01-03] MEDS: LIDOCAINE HCL 1% LOCAL INJ 2 ML AMPUL 5 ML INFILTRATE (06:50)
[2024-01-03] MEDS: ERTAPENEM 1 GM/NS 50 ML 1 GM/50 ML BAG IVPB (07:14)
== END 2024-01-03 06:39 | disposition home or self-care (01) ==
PROVIDERS: PCP Family Medicine; Visit Provider Physician Assistant
DX: N39.0 Urinary tract infection, site not specified (principal)
CPT/HCPCS: 36569; 96365; 99202; C1751; G0463; J1335

== ENCOUNTER 2025-02-17 09:15 | Outpatient (RCR) | payer MEDICARE, SELFPAY ==
[2024-12-23 11:00] VITALS: BMI 39.3
== END 2025-02-17 11:30 | disposition home or self-care (01) ==
LOC: ANHDMC 09:15
PROVIDERS: PCP Family Medicine; Visit Provider Nurse Practitioner
DX: E11.65 Type 2 diabetes mellitus with hyperglycemia (principal); Z71.89 Other specified counseling; Z71.3 Dietary counseling and surveillance
CPT/HCPCS: 97802; G0108